=== PATIENT | male | born 1950 | race Caucasian/White ===

== ENCOUNTER 2018-10-01 16:26 | Inpatient (IN) | payer OTHER ==
--- NOTE | 2018-10-01 16:34 | PDOC ---
Rapid Medical Evaluation Time Seen by Provider: 10/01/18 16:31 Medical Evaluation: 10/01/18 16:31 I have performed a brief in-person evaluation of this patient. The patient presents with a chief complaint of: SOB x2 days Pertinent physical exam findings: Lungs CTAB. RRR. No m/r/g. I have ordered the following: cardiac w/u The patient will proceed to the ED for further evaluation. Discharge Disposition - Diagnosis SOB (shortness of breath) - Referrals - Patient Instructions - Post Discharge Activity
[2018-10-01 17:23] LABS: BASO % 0.2 % (0-2.0); HEMATOCRIT 45.9 % (35.4-49); HEMOGLOBIN 14.9 GM/dL (11.7-16.9); MCH 31.8 pg (25.7-33.7); MCHC 32.5 g/dl (32.0-35.9); MEAN PLT VOLUME 7.5 fl (7.5-11.1); MONO % 4.3 % (3.8-10.2); NEUT % 91.5 % (42.8-82.8); PLATELET COUNT 262 K/MM3 (134-434); RBC 4.68 M/mm3 (4.00-5.60); RDW 18.5 % (11.9-15.9); WHITE BLOOD COUNT 16.2 K/mm3 (4.0-10.0)
--- NOTE | 2018-10-01 17:27 | PDOC ---
History of Present Illness - General Chief Complaint: Shortness of Breath Stated Complaint: SOB Time Seen by Provider: 10/01/18 16:31 History Source: Patient Exam Limitations: No Limitations - History of Present Illness Initial Comments: HPI: 67 y/o male presenting to [facility] ER complaining of shortness of breath x two weeks. Made worse with exertion. Denies constant chest pain but occasionally some discomfort on the sides of the chest. Initially was concerned it was a side effect of Desvenlafaxine (Pristiq). Dose was temporarily increased to 50 mg two weeks ago then decreased to 25 mg. Pt was then diagnosed with pneumonia by Dr. Lima in clinic. Pt was started on Clarithromycin. No improvement in symptoms. Endorses cough that was productive of pink sputum on Sunday night. Denies h/o of TB or known exposure. No recent international travel. Pt check his SPO2 on home monitor and became concerned when it read 88%. Pt elected to seek emergent evaluation after the hypoxic reading. 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 Review of Systems: In addition to that documented in the HPI above, the additional ROS was obtained : Constitutional: Denies fevers or chills Head: Denies vision changes ENMT: Denies sore throat CV: Per HPI Resp: Per HPI GI: Denies vomiting or diarrhea : Denies painful urination MSK: Denies recent trauma Skin: Denies new rashes Neuro: Denies new numbness or tingling or weakness Endocrine: Denies polyuria Heme: Denies bleeding or bruising Past History - Past Medical History Allergies/Adverse Reactions: Allergies Allergy/AdvReac Type Severity Reaction Status Date / Time Sulfa (Sulfonamide Allergy Verified 10/01/18 16:32 Antibiotics) Home Medications: Ambulatory Orders Amlodipine Besylate 10 mg PO DAILY 10/01/18 Aspirin Coated [Ecotrin -] 81 mg PO DAILY 10/01/18 Clopidogrel Bisulfate [Plavix] 75 mg PO DAILY 10/01/18 Famotidine [Pepcid] 20 mg PO BID 10/01/18 Fenofibrate Nanocrystallized [Fenofibrate] 145 mg PO DAILY 10/01/18 Folic Acid 1 mg PO DAILY 10/01/18 Hydralazine HCl 50 mg PO TID 10/01/18 Hydrocodone/Acetaminophen [[place] 7.5-325 Tablet] 1 each PO PRN 10/01/18 Lisinopril [Prinivil -] 40 mg PO BID 10/01/18 Lorazepam [Ativan] 1 mg PO PRN 10/01/18 Metformin HCl [Glucophage] 2,000 mg PO HS 10/01/18 Methotrexate [Mexate -] 22.5 mg WEEKLY 10/01/18 Methylphenidate HCl [Ritalin LA] 20 mg PO PRN 10/01/18 Nebivolol HCl [Bystolic] 20 mg PO BID 10/01/18 [place]-3 Fatty Acids/Fish Oil [Fish Oil 1,000 mg Capsule] 1 each PO DAILY Simvastatin [Zocor -] 40 mg PO DAILY 10/01/18 Testosterone Cypionate [Depo-Testosterone] 200 mg IM MONTHLY 10/01/18 Tizanidine HCl 2 mg PO PRN 10/01/18 Ubidecarenone [Coq-10] 300 mg PO DAILY 10/01/18 Cardiac Disorders: Yes COPD: No Diabetes: Yes HTN: Yes Hypercholesterolemia: Yes Psychiatric Problems: Yes (ANXIETY ADHD) Other medical history: PSORIATIC, BACK PAIN - Surgical History Cardiac Surgery: Yes (STENTS X 8) - Suicide/Smoking/Psychosocial Hx Smoking History: Never smoked Hx Alcohol Use: No Drug/Substance Use Hx: No Review of Systems - Review of Systems Able to Perform ROS?: Yes *Physical Exam - Vital Signs Last Vital Signs Temp Pulse Resp BP Pulse Ox 97.3 F L 78 20 135/72 96 10/01/18 16:32 10/01/18 17:22 10/01/18 17:22 10/01/18 17:22 10/01/18 17:22 - Physical Exam Comments: Constitutional: Well-developed, well-nourished adult male in no acute distress or obvious discomfort. Found semi-fowlers on hospital bed. Alert and oriented x4. Answered all questions appropriately and completely. Speech was non-labored , non-pressured. Head: Normocephalic. No obvious external signs of trauma. Neck: Supple, trachea is midline. No JVD. Cardiovascular / Chest: Regular rate and regular rhythm. No murmur, rubs, clicks, or gallops. Peripheral pulses: radial pulses full. No anterior chest wall tenderness. No pretibial edema. Respiratory: Breathing unlabored. Occasional cough. Able to speak in multi-word responses without pausing for breath. Equal chest rise and fall. Clear to auscultation bilaterally. No stridor, no wheezing, no rhonchi. Gastrointestinal: abdomen is soft, non-tender, non-distended. Neuro: Alert and oriented. Moving all four extremities spontaneously. Skin: Warm, dry, and intact. Psych: Affect: appropriate. Mood: normal. ED Treatment Course - LABORATORY CBC & Chemistry Diagram: 10/01/18 17:10 10/01/18 17:10 Medical Decision Making - Medical Decision Making *Reviewed vital signs, nursing notes, and prior visit documentation (if available). 67 y/o male presenting with cough and SOB. Found to be hypoxia in triage; improved with low flow supplemental oxygen via nasal cannula. Afebrile. Vitals unremarkable for hypotension or tachycardia. CXR revealed consolidation to middle of left chest (per ED wet read). CBC revealed leukocytosis with left shift. Ordered ceftriaxone and azithromycin for antibiotic coverage. EKG revealed a sinus rhythm that was unremarkable for ischemic ectopy. Troponin not elevated. Will admit pt for pneumonia causing acute hypoxia. Telephone consultation with Dr. Danielle. Verbally appraised of the pts HPI, ED course, and current plan of management. Will admit pt to med/surg. Requested single dose of Solu-Medrol and physician consult for Dr. Woody. *DC/Admit/Observation/Transfer Diagnosis at time of Disposition: SOB (shortness of breath), Hypoxemia requiring supplemental oxygen Pneumonia involving left lung Qualifiers: Pneumonia type: due to unspecified organism Lung location: unspecified part of lung Qualified Code(s): J18.9 - Pneumonia, unspecified organism - Discharge Dispostion Condition at time of disposition: Stable Decision to Admit order: Yes - Referrals - Patient Instructions - Post Discharge Activity
[2018-10-01 17:50] LABS: INR 1.13 (0.83-1.09); PROTHROMBIN TIME (PATIENT) 13.4 SEC (9.7-13.0)
[2018-10-01 18:17] LABS: ALBUMIN 3.8 g/dl (3.4-5.0); ALK PHOS 51 U/L (45-117); ANION GAP 10 MMOL/L (8-16); BILIRUBIN,TOTAL 0.7 mg/dL (0.2-1); BLOOD UREA NITROGEN 27 mg/dL (7-18); CALCIUM 8.7 mg/dL (8.5-10.1); CHLORIDE 101 mmol/L (98-107); CO2 22 mmol/L (21-32); CREATININE 1.8 mg/dL (0.55-1.3); GLUCOSE,RANDOM 119 mg/dL (74-106); SGPT/ALT 39 U/L (13-61); SODIUM 133 mmol/L (136-145); TOT PROT 7.1 g/dl (6.4-8.2)
[2018-10-01 18:18] LABS: MAGNESIUM 2.1 mg/dL (1.8-2.4); POTASSIUM 4.9 mmol/L (3.5-5.1); SGOT/AST 32 U/L (15-37)
[2018-10-01] MEDS ORDERED: CEFTRIAXONE 1,000 MG in DEXTROSE 5%-WATER - 50 ML IVPB ONE (18:48)
[2018-10-01] MEDS ORDERED: AZITHROMYCIN IVPB 500 MG in DEXTROSE 5%-WATER - 250 ML IVPB ONE (18:49)
[2018-10-01] MEDS ORDERED: CEFTRIAXONE 1 GM/50 ML BAG ONE (19:06)
[2018-10-01] MEDS ORDERED: methylPREDNISolone NA SUCC 125 MG/2 ML VIAL IVPUSH ONE (19:13)
[2018-10-01] MEDS ORDERED: AZITHROMYCIN IVPB 500 MG/250 ML BAG IVPB ONE (20:05)
[2018-10-01] MEDS ORDERED: methylPREDNISolone NA SUCC 125 MG/2 ML VIAL ONE (20:05)
[2018-10-01] MEDS ORDERED: PATIENT'S OWN MEDICATION (NON-FORMULARY) (Hydrocodone/Acetaminophen [Norco 7.5-325 Tablet] PO SCH (20:45)
--- NOTE | 2018-10-01 21:28 | PDOC ---
Documentation entered by Jhonny Tejeda SCRIBE, acting as scribe for Judi Contreras MD. Judi Contreras MD: This documentation has been prepared by the Ileana johnson Renju, SCRIBE, under my direction and personally reviewed by me in its entirety. I confirm that the documentation accurately reflects all work, treatment, procedures, and medical decision making performed by me. Attending Attestation - Resident Resident Name: Bhupendra Poole - ED Attending Attestation I have performed the following: I have examined & evaluated the patient, The case was reviewed & discussed with the resident, I agree w/resident's findings & plan, Exceptions are as noted - HPI HPI: 10/01/18 18:28 Patient is a 67 year old male with a past medical history of CAD s/p 8 stents ( [id number]), HTN, HLD, T2DM, hypogonadism, psoriatic arthritis, and anxiety who presents to the emergency department for evaluation of a 2 week history of dyspnea which is exacerbated with exertion. Endorses mild chest discomfort and productive cough with pink sputum since Sunday night. Patient decided to visit the after seeing his spo2 reading of 88% via home monitor. Denies recent travel. Allergies: Sulfonamide Antibiotics - Physicial Exam PE: 10/01/18 18:31 obese 67 yo male has had increasing shortness of breath and was just started on biaxin by Dr Hyde for presumed PNA head ncat neck supple lung no wheezing, no rales cvs [id number] abd protuberant ,nontender ext no erythema skin warm and dry neuro axox3,moving all extremities psych appropriate 10/01/18 18:34 - Medical Decision Making 10/01/18 18:40 67 yo Fri[place] p/w increasing shortness of breath,seen by PCP and started on biaxin for presumed PNA pt was hypoxic 88 % PULSE OX on room air with good wave form plan cxr,cbc,comp,trop,ekg admission for left sided infiltrates/pt has leukocytosis and needs supplemental oxygen 10/01/18 18:50
[2018-10-01] MEDS ORDERED: LISINOPRIL 20 MG TABLET (FP) PO SCH (22:00)
[2018-10-01] MEDS ORDERED: LORazepam 0.5 MG TABLET ONE (22:47)
[2018-10-01] MEDS ORDERED: PANTOPRAZOLE 40 MG TABLET (FP) ONE (22:48)
[2018-10-01] MEDS: DOCUSATE SODIUM 100 MG CAPSULE (FP) PO SCH (22:52)
[2018-10-01] MEDS: PANTOPRAZOLE 40 MG TABLET (FP) PO SCH (22:52)
[2018-10-01] MEDS: PATIENT'S OWN MEDICATION (NON-FORMULARY) (Nebivolol Hcl [Bystolic] 20 MG) PO SCH (22:52)
[2018-10-01] MEDS: hydrALAZINE HCL 25 MG TABLET (FP) PO SCH (22:52)
[2018-10-01] MEDS: LORazepam 1 MG TABLET PO SCH (22:52)
--- NOTE | 2018-10-01 23:04 | HP ---
Admitting History and Physical - Admission History of Present Illness: 67 y/o male PMH of DM/ HTN / with 2 -3 week hx of respiratory symptoms presenting to [facility] ER complaining of shortness of breath x two weeks. Denies constant chest pain but occasionally some discomfort on the sides of the chest exacerbated by coughing. Initially was concerned it was a side effect of Desvenlafaxine (Pristiq). Dose was temporarily increased to 50 mg two weeks ago then decreased to 25 mg with some improvement of sx. Pt states coughing and of breath became worse over last week. He was seen at office yesterday --clinical exam c/w pneumonia. He was started on ABX / Steroids / inhaler and instructed to call or return to office if worse. Pt check his SPO2 on home monitor and became concerned when it read 88%. Pt elected to seek emergent evaluation after the hypoxic reading. History Source: Patient, Friend, Medical Record Limitations to Obtaining History: No Limitations - Past Medical History Cardiovascular: Yes: HTN Pulmonary: Yes: Pneumonia Endocrine: Yes: Diabetes Mellitus - Smoking History Smoking history: Never smoked - Alcohol/Substance Use Hx Alcohol Use: No History of Substance Use: reports: None - Social History Usual Living Arrangement: Yes: Other (Friar) Home Medications - Allergies Allergies/Adverse Reactions: Allergies Allergy/AdvReac Type Severity Reaction Status Date / Time Sulfa (Sulfonamide Allergy Verified 10/01/18 16:32 Antibiotics) - Home Medications Home Medications: Ambulatory Orders Amlodipine Besylate 10 mg PO DAILY 10/01/18 Aspirin Coated [Ecotrin -] 81 mg PO DAILY 10/01/18 Clopidogrel Bisulfate [Plavix] 75 mg PO DAILY 10/01/18 Famotidine [Pepcid] 20 mg PO BID 10/01/18 Fenofibrate Nanocrystallized [Fenofibrate] 145 mg PO DAILY 10/01/18 Folic Acid 1 mg PO DAILY 10/01/18 Hydralazine HCl 50 mg PO TID 10/01/18 Hydrocodone/Acetaminophen [[place] 7.5-325 Tablet] 1 each PO PRN 10/01/18 Lisinopril [Prinivil -] 40 mg PO BID 10/01/18 Lorazepam [Ativan] 1 mg PO PRN 10/01/18 Metformin HCl [Glucophage] 2,000 mg PO HS 10/01/18 Methotrexate [Mexate -] 22.5 mg WEEKLY 10/01/18 Methylphenidate HCl [Ritalin LA] 20 mg PO PRN 10/01/18 Nebivolol HCl [Bystolic] 20 mg PO BID 10/01/18 [place]-3 Fatty Acids/Fish Oil [Fish Oil 1,000 mg Capsule] 1 each PO DAILY Simvastatin [Zocor -] 40 mg PO DAILY 10/01/18 Testosterone Cypionate [Depo-Testosterone] 200 mg IM MONTHLY 10/01/18 Tizanidine HCl 2 mg PO PRN 10/01/18 Ubidecarenone [Coq-10] 300 mg PO DAILY 10/01/18 Review of Systems - Review of Systems Constitutional: reports: Chills, Fever, Malaise Eyes: reports: No Symptoms HENT: reports: No Symptoms Neck: reports: No Symptoms Cardiovascular: reports: Chest Pain, Shortness of Breath Respiratory: reports: Cough, Exercise Intolerance, SOB, SOB on Exertion, Wheezing (at night) Gastrointestinal: reports: No Symptoms Genitourinary: reports: No Symptoms Breasts: reports: No Symptoms Reported Musculoskeletal: reports: No Symptoms Integumentary: reports: No Symptoms Neurological: reports: No Symptoms Endocrine: reports: No Symptoms Hematology/Lymphatic: reports: No Symptoms Psychiatric: reports: Depression Physical Examination Vital Signs: Vital Signs Temperature 97.3 F L 10/01/18 16:32 Pulse Rate 68 10/01/18 20:00 Respiratory Rate 20 10/01/18 20:00 Blood Pressure 126/74 10/01/18 20:00 O2 Sat by Pulse Oximetry (%) 99 10/01/18 20:00 Constitutional: Yes: Well Nourished, Mild Distress Eyes: Yes: Conjunctiva Clear, EOM Intact HENT: Yes: Atraumatic, Normocephalic Neck: Yes: Supple, Trachea Midline Cardiovascular: Yes: Regular Rate and Rhythm Respiratory: Yes: Regular Gastrointestinal: Yes: WNL ...Rectal Exam: Yes: Deferred Renal/: Yes: WNL Breast(s): Yes: WNL Musculoskeletal: Yes: WNL Extremities: Yes: WNL Edema: No Peripheral Pulses WNL: Yes Integumentary: Yes: WNL Neurological: Yes: Alert, Oriented ...Motor Strength: WNL Psychiatric: Yes: Alert, Oriented Labs: CBC, BMP 10/01/18 17:10 05/07/19 17:10 Problem List - Problems (1) HTN (hypertension) Code(s): I10 - ESSENTIAL (PRIMARY) HYPERTENSION (2) Diabetes mellitus Code(s): E11.9 - TYPE 2 DIABETES MELLITUS WITHOUT COMPLICATIONS (3) Hypoxemia requiring supplemental oxygen Code(s): R09.02 - HYPOXEMIA; Z99.81 - DEPENDENCE ON SUPPLEMENTAL OXYGEN (4) Pneumonia involving left lung Code(s): J18.9 - PNEUMONIA, UNSPECIFIED ORGANISM Qualifiers: Pneumonia type: due to unspecified organism Lung location: unspecified part of lung Qualified Code(s): J18.9 - Pneumonia, unspecified organism (5) SOB (shortness of breath) Code(s): R06.02 - SHORTNESS OF BREATH
[2018-10-02 00:46] VITALS: BMI 33.0
[2018-10-02] MEDS: methylPREDNISolone NA SUCC 40 MG/1 ML VIAL IVPUSH SCH ×3 (02:00→17:18)
[2018-10-02] MEDS: hydrALAZINE HCL 25 MG TABLET (FP) PO SCH ×3 (06:14→21:17)
[2018-10-02] MEDS: INSULIN SLIDING SCALE (NOVOLOG) 1 VIAL SQ SCH ×4 (06:14→21:16)
[2018-10-02] MEDS ORDERED: INSULIN (NOVOLOG) ASPART 100 UNITS/ML 10ML VIAL ONE ×3 (06:29→21:06)
[2018-10-02 07:32] LABS: HEMATOCRIT 42.3 % (35.4-49); HEMOGLOBIN 14.2 GM/dL (11.7-16.9); MCH 32.5 pg (25.7-33.7); MCHC 33.6 g/dl (32.0-35.9); MEAN PLT VOLUME 7.6 fl (7.5-11.1); PLATELET COUNT 229 K/MM3 (134-434); RBC 4.36 M/mm3 (4.00-5.60); RDW 18.5 % (11.9-15.9); WHITE BLOOD COUNT 10.5 K/mm3 (4.0-10.0)
[2018-10-02] MEDS: ALBUTEROL SO4 2.5/IPRATROPIUM 0.5 INH SOL 3 ML VIAL.NEB. NEB SCH ×4 (07:33→20:40)
[2018-10-02 08:06] LABS: CALCIUM 8.6 mg/dL (8.5-10.1); MAGNESIUM 2.3 mg/dL (1.8-2.4); POTASSIUM 4.9 mmol/L (3.5-5.1)
--- NOTE | 2018-10-02 08:29 | EKG ---
Test Reason : Blood Pressure : / mmHG Vent. Rate : 074 BPM Atrial Rate : 074 BPM P-R Int : 170 ms QRS Dur : 082 ms QT Int : 410 ms P-R-T Axes : 034 024 026 degrees QTc Int : 455 ms POOR DATA QUALITY, INTERPRETATION MAY BE ADVERSELY AFFECTED NORMAL SINUS RHYTHM NORMAL ECG NO PREVIOUS ECGS AVAILABLE Confirmed by BART TURNER MD ([id number]) on 10/02/2018 8:29:07 AM Referred By: Confirmed By:BART TURNER MD
--- NOTE | 2018-10-02 08:37 | CON.CARD ---
Consult Consult Specialty:: Cardiology Reason for Consultation:: cp - History of Present Illness History of Present Illness: 7 y/o male presenting to [facility] ER complaining of shortness of breath x two weeks. Made worse with exertion. Denies constant chest pain but occasionally some discomfort on the sides of the chest. Initially was concerned it was a side effect of Desvenlafaxine (Pristiq). Dose was temporarily increased to 50 mg two weeks ago then decreased to 25 mg. Pt was then diagnosed with pneumonia by Dr. Lima in clinic. Pt was started on Clarithromycin. No improvement in symptoms. Endorses cough that was productive of pink sputum on Sunday night. Denies h/o of TB or known exposure. No recent international travel. Pt check his SPO2 on home monitor and became concerned when it read 88%. Pt elected to seek emergent evaluation after the hypoxic reading. 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 cardiac [facility] PCI of RPDA LOUIE Cardiac Cath. 04/04/18 [facility] Patient refused CABG. PCI LOUIE PRCA Left Main 30% LAD proximal stent patent, mid 40%, distal 50% tapers to small caliber vessel D1 80% medium size vessel D2 80% medium size vessel LCx mid stent widely patent Ramus stent widely patent with 90% stenosis proximal to patent stent- ostial lesion OM1 stent widely patent Cardiac Cath: 06/27/18 at [facility] by Dr. Deluna PCI LOUIE Ramus Ongoing medical problems 3 vessel disease - refused CABG September 09, 2015 Dr. Deluna Anxiety LOUIE of pLAD November 18, 2015 Dr. Deluna Hyperlipidemia Hypertension PCI LOUIE of mRCA September 10, 2015 Dr. Deluna PCI of Ramus and OM1 September 17, 2015 Dr. Deluna Pre-diabetes treated with metformin in the past Sleep apnea Basal cell CA nose.2015 - resection 2017 - History Source History Provided By: Patient, Medical Record - Past Medical History Cardio/Vascular: Yes: HTN Pulmonary: Yes: Pneumonia Endocrine: Yes: Diabetes Mellitus - Alcohol/Substance Use Hx Alcohol Use: No History of Substance Use: reports: None - Smoking History Smoking history: Never smoked Home Medications - Allergies Allergies/Adverse Reactions: Allergies Allergy/AdvReac Type Severity Reaction Status Date / Time Sulfa (Sulfonamide Allergy Verified 10/01/18 16:32 Antibiotics) - Home Medications Home Medications: Ambulatory Orders Amlodipine Besylate 10 mg PO DAILY 10/01/18 Aspirin Coated [Ecotrin -] 81 mg PO DAILY 10/01/18 Clopidogrel Bisulfate [Plavix] 75 mg PO DAILY 10/01/18 Famotidine [Pepcid] 20 mg PO BID 10/01/18 Fenofibrate Nanocrystallized [Fenofibrate] 145 mg PO DAILY 10/01/18 Folic Acid 1 mg PO DAILY 10/01/18 Hydralazine HCl 50 mg PO TID 10/01/18 Hydrocodone/Acetaminophen [[place] 7.5-325 Tablet] 1 each PO PRN 10/01/18 Lisinopril [Prinivil -] 40 mg PO BID 10/01/18 Lorazepam [Ativan] 1 mg PO PRN 10/01/18 Metformin HCl [Glucophage] 2,000 mg PO HS 10/01/18 Methotrexate [Mexate -] 22.5 mg WEEKLY 10/01/18 Methylphenidate HCl [Ritalin LA] 20 mg PO PRN 10/01/18 Nebivolol HCl [Bystolic] 20 mg PO BID 10/01/18 [place]-3 Fatty Acids/Fish Oil [Fish Oil 1,000 mg Capsule] 1 each PO DAILY Simvastatin [Zocor -] 40 mg PO DAILY 10/01/18 Testosterone Cypionate [Depo-Testosterone] 200 mg IM MONTHLY 10/01/18 Tizanidine HCl 2 mg PO PRN 10/01/18 Ubidecarenone [Coq-10] 300 mg PO DAILY 10/01/18 Review of Systems - Review of Systems Constitutional: reports: No Symptoms Eyes: reports: No Symptoms HENT: reports: No Symptoms Neck: reports: No Symptoms Cardiovascular: reports: Chest Pain Respiratory: reports: Cough, SOB Gastrointestinal: reports: No Symptoms Genitourinary: reports: No Symptoms Breasts: reports: No Symptoms Reported Musculoskeletal: reports: No Symptoms Integumentary: reports: No Symptoms Neurological: reports: No Symptoms Endocrine: reports: No Symptoms Hematology/Lymphatic: reports: No Symptoms Psychiatric: reports: No Symptoms Vital Signs: Vital Signs Temperature 98.0 F 10/02/18 05:00 Pulse Rate 70 10/02/18 05:00 Respiratory Rate 20 10/02/18 00:37 Blood Pressure 113/67 10/02/18 05:00 O2 Sat by Pulse Oximetry (%) 95 10/02/18 00:37 Constitutional: Yes: Well Nourished, No Distress, Calm Eyes: Yes: WNL, Conjunctiva Clear, EOM Intact HENT: Yes: WNL, Atraumatic, Normocephalic Neck: Yes: WNL, Supple, Trachea Midline Respiratory: Yes: WNL, Regular, CTA Bilaterally Gastrointestinal: Yes: WNL, Normal Bowel Sounds Renal/: Yes: WNL Cardiovascular: Yes: WNL, Regular Rate and Rhythm Musculoskeletal: Yes: WNL Extremities: Yes: WNL Integumentary: Yes: WNL Neurological: Yes: WNL, Alert, Oriented ...Motor Strength: WNL Psychiatric: Yes: WNL, Alert, Oriented - Other Data Labs, Other Data: CBC, BMP 10/02/18 06:30 10/02/18 06:30 INR, PTT INR 1.13 (0.83-1.09) H 10/01/18 17:10 Troponin, BNP 10/01/18 17:10 Troponin I 0.02 Troponin, BNP 10/01/18 17:10 Troponin I 0.02 Laboratory Tests 10/01/18 10/01/18 10/01/18 17:10 17:10 17:10 WBC 16.2 H RBC 4.68 Hgb 14.9 Hct 45.9 MCV 98.0 H MCH 31.8 MCHC 32.5 RDW 18.5 H Plt Count 262 MPV 7.5 Absolute Neuts (auto) 14.8 H Total Counted 100 Neutrophils % 91.5 H Neutrophils % (Manual) 93.0 H Lymphocytes % 4.0 L Lymphocytes % (Manual) 4.0 L Monocytes % 4.3 Monocytes % (Manual) 3 L Eosinophils % 0.0 Basophils % 0.2 Nucleated RBC % 0 PT with INR 13.40 H INR 1.13 H Sodium 133 L Potassium 4.9 Chloride 101 Carbon Dioxide 22 Anion Gap 10 BUN 27 H Creatinine 1.8 H Creat Clearance w eGFR 37.71 Est GFR (CKD-EPI)AfAm Est GFR (CKD-EPI)NonAf POC Glucometer Random Glucose 119 H Calcium 8.7 Magnesium 2.1 Total Bilirubin 0.7 AST 32 ALT 39 Alkaline Phosphatase 51 Creatine Kinase 212 Creatine Kinase Index 1.8 CK-MB (CK-2) 4.0 H Troponin I 0.02 Total Protein 7.1 Albumin 3.8 TSH 10/02/18 10/02/18 10/02/18 06:13 06:30 06:30 WBC 10.5 H RBC 4.36 Hgb 14.2 Hct 42.3 MCV 97.0 H MCH 32.5 MCHC 33.6 RDW 18.5 H Plt Count 229 MPV 7.6 Absolute Neuts (auto) Total Counted Neutrophils % Neutrophils % (Manual) Lymphocytes % Lymphocytes % (Manual) Monocytes % Monocytes % (Manual) Eosinophils % Basophils % Nucleated RBC % PT with INR INR Sodium 131 L Potassium 4.9 Chloride 101 Carbon Dioxide 22 Anion Gap 8 BUN 31 H Creatinine 1.5 H Creat Clearance w eGFR Est GFR (CKD-EPI)AfAm 54.66 Est GFR (CKD-EPI)NonAf 47.16 POC Glucometer 211 Random Glucose 187 H Calcium 8.6 Magnesium 2.3 Total Bilirubin AST ALT Alkaline Phosphatase Creatine Kinase Creatine Kinase Index CK-MB (CK-2) Troponin I Total Protein Albumin TSH 0.58 10/02/18 11:33 WBC RBC Hgb Hct MCV MCH MCHC RDW Plt Count MPV Absolute Neuts (auto) Total Counted Neutrophils % Neutrophils % (Manual) Lymphocytes % Lymphocytes % (Manual) Monocytes % Monocytes % (Manual) Eosinophils % Basophils % Nucleated RBC % PT with INR INR Sodium Potassium Chloride Carbon Dioxide Anion Gap BUN Creatinine Creat Clearance w eGFR Est GFR (CKD-EPI)AfAm Est GFR (CKD-EPI)NonAf POC Glucometer 194 Random Glucose Calcium Magnesium Total Bilirubin AST ALT Alkaline Phosphatase Creatine Kinase Creatine Kinase Index CK-MB (CK-2) Troponin I Total Protein Albumin TSH Imaging - Results Chest X-ray: Image Reviewed (rml infiltrate) EKG: Image Reviewed (sr wnl) Problem List - Problems (1) Diabetes mellitus Code(s): E11.9 - TYPE 2 DIABETES MELLITUS WITHOUT COMPLICATIONS (2) HTN (hypertension) Code(s): I10 - ESSENTIAL (PRIMARY) HYPERTENSION (3) Hypoxemia requiring supplemental oxygen Code(s): R09.02 - HYPOXEMIA; Z99.81 - DEPENDENCE ON SUPPLEMENTAL OXYGEN (4) Pneumonia involving left lung Code(s): J18.9 - PNEUMONIA, UNSPECIFIED ORGANISM Qualifiers: Pneumonia type: due to unspecified organism Lung location: unspecified part of lung Qualified Code(s): J18.9 - Pneumonia, unspecified organism (5) SOB (shortness of breath) Code(s): R06.02 - SHORTNESS OF BREATH Assessment/Plan Imp; PNA ASHD CRI DM HTN HLP Atypical cp Plan Non cardiac cp ekg, echo, ce neg cont abx and dvt plx
[2018-10-02] MEDS ORDERED: DEXTROSE 5%-WATER - 50 ML IVPB ONE (09:49)
[2018-10-02] MEDS ORDERED: cefTRIAXone SODIUM 1 GM VIAL ONE (09:49)
[2018-10-02] MEDS: FOLIC ACID 1 MG TABLET (FP) PO SCH (09:53)
[2018-10-02] MEDS: PANTOPRAZOLE 40 MG TABLET (FP) PO SCH ×2 (09:53→21:17)
[2018-10-02] MEDS: DOCUSATE SODIUM 100 MG CAPSULE (FP) PO SCH ×2 (09:53→21:17)
[2018-10-02] MEDS: amLODIPine BESYLATE 10 MG TABLET (FP) PO SCH (09:53)
[2018-10-02] MEDS: LORazepam 1 MG TABLET PO SCH ×3 (09:53→21:27)
[2018-10-02] MEDS: CLOPIDOGREL BISULFATE 75 MG TABLET (FP) PO SCH (09:54)
[2018-10-02] MEDS: ASPIRIN COATED 81 MG TABLET.EC PO SCH (09:54)
[2018-10-02] MEDS: AZITHROMYCIN IVPB 500 MG/250 ML BAG IVPB SCH (09:54)
[2018-10-02] MEDS: POLYETHYLENE GLYCOL 3350 119 GM BTL PO SCH (09:55)
[2018-10-02] MEDS ORDERED: CEFTRIAXONE 1 GM in DEXTROSE 5%-WATER - 50 ML IVPB SCH (10:00)
[2018-10-02 10:12] LABS: CREATININE 1.5 mg/dL (0.55-1.3)
[2018-10-02] MEDS: LISINOPRIL 20 MG TABLET (FP) PO SCH ×3 (12:00→21:17)
--- NOTE | 2018-10-02 12:06 | ECHO ---
Name: KAYDEN MONTANEZ Exam:Adult Echocardiogram Study Date: 10/02/2018 10:04 AM Age: 67 yrs Reason For Study: SOB Height: 72 in Weight: 243 lb BSA: 2.3 m2 MMode/2D Measurements & Calculations IVSd: 1.2 cm Ao root diam: 3.2 cm LVIDd: 4.4 cm LA dimension: 3.0 cm LVIDs: 2.7 cm LVPWd: 1.1 cm EDV(Teich): 87.9 ml LVOT diam: 2.1 cm ESV(Teich): 28.1 ml Doppler Measurements & Calculations MV E max alex: 70.6 cm/sec Ao V2 max: 168.3 cm/sec MV A max alex: 99.2 cm/sec Ao max P.3 mmHg MV E/A: 0.71 Ao V2 mean: 120.2 cm/sec MV dec time: 0.26 sec Ao mean P.6 mmHg Ao V2 VTI: 34.7 cm RADHA(I,D): 3.0 cm2 RADHA(V,D): 3.1 cm2 LV V1 max P.8 mmHg SV(LVOT): 102.5 ml LV V1 mean P.8 mmHg LV V1 max: 148.7 cm/sec LV V1 mean: 117.9 cm/sec LV V1 VTI: 29.1 cm Med Peak E' Alex: 4.4 cm/sec Med E/e': 16.1 Lat Peak E' Alex: 5.3 cm/sec Lat E/e': 13.4 Procedure A two-dimensional transthoracic echocardiogram with color flow and Doppler was performed. Left Ventricle The left ventricular size, thickness and function are normal. The left ventricular ejection fraction is normal. The left ventricular wall motion is normal. Right Ventricle The right ventricle is normal in size and function. Atria Normal left and right atrial size and function. Mitral Valve The mitral valve is normal in structure and function. There is no mitral valve stenosis. There is tra ce to mild mitral regurgitation. Tricuspid Valve The tricuspid valve is normal in structure and function. There is no tricuspid stenosis. There was insufficient TR detected to calculate RV systolic pressure. Aortic Valve The aortic valve is normal in structure and function. No hemodynamically significant valvular aortic stenosis. No aortic regurgitation is present. Pulmonic Valve The pulmonic valve is not well visualized. Great Vessels The aortic root is normal size. Pericardium/Pleura There is no pericardial effusion. Interpretation Summary The left ventricular size, thickness and function are normal The left ventricular ejection fraction is normal. The left ventricular wall motion is normal. There is trace to mild mitral regurgitation. There was insufficient TR detected to calculate RV systolic pressure. MD Arvin Schwab 10/02/2018 12:05 PM
[2018-10-02] MEDS: NEBIVOLOL 10 MG TABLET (FP) PO SCH ×2 (12:53→21:17)
[2018-10-02] MEDS ORDERED: ACETAMINOPHEN 325 MG TABLET (FP) PO PRN (13:12)
[2018-10-02] MEDS: LORazepam 1 MG TABLET PO PRN (21:27)
--- NOTE | 2018-10-02 22:20 | PN ---
Progress Note (short form) - Note Progress Note: patient seen and examined in room states feeling better continues with cough now less productive Vital Signs Period Temp Pulse Resp BP Sys/Crespo Pulse Ox Last 24 Hr 97.5 F-98.0 F 70-78 18-20 113-126/56-69 95-[address] neck supple heart s1/S2 regular lungs rhonchi mid left filed no wheezing abd soft non tender ext no calf tenderness / no edema CBC, BMP 10/02/18 06:30 10/02/18 06:30 Active Medications Acetaminophen (Tylenol -) 650 mg PO Q6H PRN PRN Reason: PAIN Albuterol/Ipratropium (Duoneb -) 1 amp NEB RQID [facility] Last Admin: 10/02/18 20:40 Dose: 1 amp Amlodipine Besylate (Norvasc -) 10 mg PO DAILY [facility] Last Admin: 10/02/18 09:53 Dose: 10 mg Aspirin (Ecotrin -) 81 mg PO DAILY [facility] Last Admin: 10/02/18 09:54 Dose: 81 mg Clopidogrel Bisulfate (Plavix -) 75 mg PO DAILY [facility] Last Admin: 10/02/18 09:54 Dose: 75 mg Docusate Sodium (Colace -) 100 mg PO BID [facility] Last Admin: 10/02/18 21:17 Dose: 100 mg Folic Acid (Folic Acid -) 1 mg PO DAILY [facility] Last Admin: 10/02/18 09:53 Dose: 1 mg Hydralazine HCl (Apresoline -) 50 mg PO TID [facility] Last Admin: 10/02/18 21:17 Dose: 50 mg Azithromycin (Zithromax 500mg Ivpb (Pre-Docked)) 500 mg in 250 mls @ 250 mls/ hr IVPB DAILY [facility] Last Admin: 10/02/18 09:54 Dose: 250 mls/hr Ceftriaxone Sodium 1 gm/ (Dextrose) 50 mls @ 100 mls/hr IVPB DAILY [facility]; Protocol Stop: 10/07/18 23:59 Last Admin: 10/02/18 09:55 Dose: 100 mls/hr Insulin Aspart (Novolog Vial Sliding Scale -) 1 vial SQ ACHS [facility]; Protocol Last Admin: 10/02/18 21:16 Dose: 4 units Lisinopril (Prinivil) 40 mg PO BID [facility] Last Admin: 10/02/18 21:17 Dose: 40 mg Lorazepam (Ativan -) 2 mg PO HS PRN PRN Reason: ANXIETY Last Admin: 10/02/18 21:27 Dose: 2 mg Lorazepam (Ativan -) 1 mg PO BID [facility] Stop: 10/03/18 20:50 Last Admin: 10/02/18 21:27 Dose: Not Given Methotrexate (Mexate -) 22.5 mg PO Tu@1000 [facility] Methylprednisolone Sodium Succinate (Solu-Medrol -) 60 mg IVPUSH Q8H-IV [facility] Last Admin: 10/02/18 17:18 Dose: 60 mg Nebivolol (Bystolic -) 20 mg PO BID [facility] Last Admin: 10/02/18 21:17 Dose: 20 mg Non-Formulary Medication ([place]-3 Fatty Acids/Fish Oil [Fish Oil 1,000 Mg Capsule]) 1 each PO DAILY [facility] Non-Formulary Medication (Ubidecarenone [Coq-10]) 300 mg PO DAILY [facility] Pantoprazole Sodium (Protonix -) 40 mg PO BID [facility] Last Admin: 10/02/18 21:17 Dose: 40 mg Polyethylene Glycol (Miralax (For Daily Use) -) 17 gm PO DAILY [facility] Last Admin: 10/02/18 09:55 Dose: 17 gm #PNA CAP / ABX/ nebulizer / steroids / O2 expectorant #HTN continue home meds / #DM monitor for inc BS due to steroids cover with sliding scale #Psoriatic arthitis on MTX weekly pain meds PRN #ADHD hold meds #CAD s/p multiple cath - c/stent Problem List - Problems (1) Pneumonia involving left lung Code(s): J18.9 - PNEUMONIA, UNSPECIFIED ORGANISM Qualifiers: Pneumonia type: due to unspecified organism Lung location: unspecified part of lung Qualified Code(s): J18.9 - Pneumonia, unspecified organism (2) Hypoxemia requiring supplemental oxygen Code(s): R09.02 - HYPOXEMIA; Z99.81 - DEPENDENCE ON SUPPLEMENTAL OXYGEN (3) SOB (shortness of breath) Code(s): R06.02 - SHORTNESS OF BREATH (4) HTN (hypertension) Code(s): I10 - ESSENTIAL (PRIMARY) HYPERTENSION (5) Psoriatic arthritis Code(s): L40.50 - ARTHROPATHIC PSORIASIS, UNSPECIFIED (6) CAD S/P percutaneous coronary angioplasty Code(s): I25.10 - ATHSCL HEART DISEASE OF [place] CORONARY ARTERY W/O ANG PCTRS; Z98.61 - CORONARY ANGIOPLASTY STATUS (7) ADHD (attention deficit hyperactivity disorder), combined type Code(s): F90.2 - ATTENTION-DEFICIT HYPERACTIVITY DISORDER, COMBINED TYPE (8) Diabetes mellitus Code(s): E11.9 - TYPE 2 DIABETES MELLITUS WITHOUT COMPLICATIONS
--- NOTE | 2018-10-02 22:36 | PN ---
Progress Note (short form) - Note Progress Note: ID CONSULT DICTATED COMMUNITY ACQUIRED VS. ATYPICAL L PNEUMONIA R/O SEPSIS SECONDARY TO PNEUMONIA AWAIT C/S CONTINUE EMPIRIC CEFTRIAXONE/ZITHROMAX
[2018-10-03] MEDS: methylPREDNISolone NA SUCC 40 MG/1 ML VIAL IVPUSH SCH ×3 (01:38→18:27)
[2018-10-03] MEDS: hydrALAZINE HCL 25 MG TABLET (FP) PO SCH ×3 (06:19→21:01)
[2018-10-03] MEDS: INSULIN SLIDING SCALE (NOVOLOG) 1 VIAL SQ SCH ×4 (06:19→21:19)
[2018-10-03] MEDS ORDERED: INSULIN (NOVOLOG) ASPART 100 UNITS/ML 10ML VIAL ONE ×4 (06:27→21:16)
[2018-10-03] MEDS: ALBUTEROL SO4 2.5/IPRATROPIUM 0.5 INH SOL 3 ML VIAL.NEB. NEB SCH ×4 (07:15→19:53)
[2018-10-03 07:41] LABS: BASO % 0.2 % (0-2.0); HEMATOCRIT 41.2 % (35.4-49); HEMOGLOBIN 13.5 GM/dL (11.7-16.9); LYMPH % 2.7 % (8-40); MCH 31.8 pg (25.7-33.7); MCHC 32.7 g/dl (32.0-35.9); MEAN CELL VOLUME 97.5 fl (80-96); MEAN PLT VOLUME 7.5 fl (7.5-11.1); MONO % 3.3 % (3.8-10.2); NEUT % 93.8 % (42.8-82.8); PLATELET COUNT 265 K/MM3 (134-434); RBC 4.23 M/mm3 (4.00-5.60); RDW 18.4 % (11.9-15.9); WHITE BLOOD COUNT 15.4 K/mm3 (4.0-10.0)
[2018-10-03 07:51] LABS: CALCIUM 8.6 mg/dL (8.5-10.1); CREATININE 1.5 mg/dL (0.55-1.3); POTASSIUM 4.8 mmol/L (3.5-5.1)
--- NOTE | 2018-10-03 08:57 | CONS ---
DATE OF CONSULTATION: DATE OF DICTATION: 10/03/2018 INFECTIOUS DISEASE CONSULTATION HISTORY OF PRESENT ILLNESS: The patient is a 67-year-old male with a history of coronary artery disease, evaluated for pneumonia. He was admitted to the hospital with a 2-week history of worsening shortness of breath. He had presented to his primary care physician, where he was evaluated and was prescribed Biaxin and steroids. Despite the treatment, he continued to complain of shortness of breath and cough. He took his O2 saturation on his home pulse oximeter and was noted to be hypoxemic. He presented to the emergency room, where chest x-ray showed a left-sided infiltrate. The patient reports shortness of breath, especially on exertion and at rest. He reports cough productive of blood-tinged sputum. He does have some chest discomfort with his cough. He denies any high-grade fever or shaking chills. The patient reports being exposed to persons with respiratory tract illnesses. He is a nonsmoker. He denies any recent hospitalizations. He is up to date with respect to his influenza and pneumococcal vaccines. PAST MEDICAL HISTORY: Positive for coronary artery disease and coronary artery stents (he has 8 coronary artery stents), hypertension, hyperlipidemia, diabetes mellitus, psoriatic arthritis. ALLERGIES: SULFA. MEDICATIONS: Include Tylenol, DuoNeb, Norvasc, Ecotrin, ceftriaxone, Zithromax, Plavix, Apresoline, Bystolic, Protonix. SOCIAL HISTORY: He is a retired entry level administrative assistant. He is a nonsmoker, nondrinker. No recent hospitalizations. REVIEW OF SYSTEMS: Neurologic: No loss of consciousness, seizure activity, focal weakness. Cardiac: Negative for chest pain or palpitations. Respiratory: As per HPI. Gastrointestinal: Negative for vomiting or diarrhea. Genitourinary: Negative for urinary tract infection. LABORATORY DATA: White count on admission 16.2, presently 10.5; hemoglobin 42.3, platelet count 223. Creatinine 1.5. IMAGING: Chest x-ray shows a patchy infiltrate involving the left mid lung field. PHYSICAL EXAMINATION: General: He is awake and alert. He is not acutely toxic appearing. He appears slightly shortness of breath at rest on nasal cannula O2. Vital Signs: Temperature 98.2, blood pressure 119/68, pulse 70 and regular, respirations 18 per minute. HEENT: Sclerae anicteric. Cardiac: Heart sounds S1, S2. Lungs: A few rhonchi in the left lung field. Abdomen: Obese, nontender. Extremities: Negative for edema. IMPRESSION: 1. Community-acquired versus atypical left-sided pneumonia. 2. Rule out sepsis secondary to pneumonia. 3. History of diabetes mellitus. 4. Coronary artery disease, status post coronary artery stents. 5. SULFA ALLERGY. PLAN: We obtained blood cultures, sputum culture, urine Legionella and pneumococcal antigens. Empiric antibiotic coverage with ceftriaxone and Zithromax, and will follow. Thank you for the kind referral. PATRICIA GARCIA M.D. [id number]
--- NOTE | 2018-10-03 09:01 | PN ---
Progress Note (short form) - Note Progress Note: patient seen and examined in room states feeling better continues with cough now less productive Vital Signs Period Temp Pulse Resp BP Sys/Crespo Pulse Ox Last 24 Hr 97.5 F-98.2 F 67-78 2-20 101-122/56-[address] neck supple heart s1/S2 regular lungs rhonchi mid left filed no wheezing abd soft non tender ext no calf tenderness / no edema CBC, BMP 10/03/18 06:10 10/03/18 06:10 CBC, BMP 10/02/18 06:30 10/02/18 06:30 Active Medications Acetaminophen (Tylenol -) 650 mg PO Q6H PRN PRN Reason: PAIN Albuterol/Ipratropium (Duoneb -) 1 amp NEB RQID [facility] Last Admin: 10/03/18 07:15 Dose: 1 amp Amlodipine Besylate (Norvasc -) 10 mg PO DAILY [facility] Last Admin: 10/02/18 09:53 Dose: 10 mg Aspirin (Ecotrin -) 81 mg PO DAILY [facility] Last Admin: 10/02/18 09:54 Dose: 81 mg Clopidogrel Bisulfate (Plavix -) 75 mg PO DAILY [facility] Last Admin: 10/02/18 09:54 Dose: 75 mg Docusate Sodium (Colace -) 100 mg PO BID [facility] Last Admin: 10/02/18 21:17 Dose: 100 mg Folic Acid (Folic Acid -) 1 mg PO DAILY [facility] Last Admin: 10/02/18 09:53 Dose: 1 mg Hydralazine HCl (Apresoline -) 50 mg PO TID [facility] Last Admin: 10/03/18 06:19 Dose: 50 mg Azithromycin (Zithromax 500mg Ivpb (Pre-Docked)) 500 mg in 250 mls @ 250 mls/ hr IVPB DAILY [facility] Last Admin: 10/02/18 09:54 Dose: 250 mls/hr Ceftriaxone Sodium 2 gm/ (Dextrose) 100 mls @ 200 mls/hr IVPB DAILY [facility]; Protocol Insulin Aspart (Novolog Vial Sliding Scale -) 1 vial SQ ACHS [facility]; Protocol Last Admin: 10/03/18 06:19 Dose: Not Given Lisinopril (Prinivil) 40 mg PO BID [facility] Last Admin: 10/02/18 21:17 Dose: 40 mg Lorazepam (Ativan -) 2 mg PO HS PRN PRN Reason: ANXIETY Last Admin: 10/02/18 21:27 Dose: 2 mg Lorazepam (Ativan -) 1 mg PO BID [facility] Stop: 10/03/18 20:50 Last Admin: 10/02/18 21:27 Dose: Not Given Methotrexate (Mexate -) 22.5 mg PO Tu@1000 [facility] Methylprednisolone Sodium Succinate (Solu-Medrol -) 60 mg IVPUSH Q8H-IV [facility] Last Admin: 10/03/18 01:38 Dose: 60 mg Nebivolol (Bystolic -) 20 mg PO BID [facility] Last Admin: 10/02/18 21:17 Dose: 20 mg Non-Formulary Medication ([place]-3 Fatty Acids/Fish Oil [Fish Oil 1,000 Mg Capsule]) 1 each PO DAILY [facility] Non-Formulary Medication (Ubidecarenone [Coq-10]) 300 mg PO DAILY [facility] Pantoprazole Sodium (Protonix -) 40 mg PO BID [facility] Last Admin: 10/02/18 21:17 Dose: 40 mg Polyethylene Glycol (Miralax (For Daily Use) -) 17 gm PO DAILY [facility] Last Admin: 10/02/18 09:55 Dose: 17 gm #PNA CAP / ABX/ nebulizer / steroids / O2 expectorant #HTN continue home meds / #DM monitor for inc BS due to steroids cover with sliding scale #Psoriatic arthitis on MTX weekly pain meds PRN #ADHD hold meds #CAD s/p multiple cath - c/stent Problem List - Problems (1) Pneumonia involving left lung Code(s): J18.9 - PNEUMONIA, UNSPECIFIED ORGANISM Qualifiers: Pneumonia type: due to unspecified organism Lung location: unspecified part of lung Qualified Code(s): J18.9 - Pneumonia, unspecified organism (2) Hypoxemia requiring supplemental oxygen Code(s): R09.02 - HYPOXEMIA; Z99.81 - DEPENDENCE ON SUPPLEMENTAL OXYGEN (3) SOB (shortness of breath) Code(s): R06.02 - SHORTNESS OF BREATH (4) HTN (hypertension) Code(s): I10 - ESSENTIAL (PRIMARY) HYPERTENSION (5) Psoriatic arthritis Code(s): L40.50 - ARTHROPATHIC PSORIASIS, UNSPECIFIED (6) CAD S/P percutaneous coronary angioplasty Code(s): I25.10 - ATHSCL HEART DISEASE OF [place] CORONARY ARTERY W/O ANG PCTRS; Z98.61 - CORONARY ANGIOPLASTY STATUS (7) ADHD (attention deficit hyperactivity disorder), combined type Code(s): F90.2 - ATTENTION-DEFICIT HYPERACTIVITY DISORDER, COMBINED TYPE (8) Diabetes mellitus Code(s): E11.9 - TYPE 2 DIABETES MELLITUS WITHOUT COMPLICATIONS
[2018-10-03] MEDS ORDERED: DEXTROSE 5%-WATER 100 ML IVPB ONE (09:51)
[2018-10-03] MEDS: LORazepam 1 MG TABLET PO SCH (10:07)
[2018-10-03] MEDS: FOLIC ACID 1 MG TABLET (FP) PO SCH (10:07)
[2018-10-03] MEDS: PANTOPRAZOLE 40 MG TABLET (FP) PO SCH ×2 (10:07→21:02)
[2018-10-03] MEDS: ASPIRIN COATED 81 MG TABLET.EC PO SCH (10:07)
[2018-10-03] MEDS: DOCUSATE SODIUM 100 MG CAPSULE (FP) PO SCH ×2 (10:08→21:01)
[2018-10-03] MEDS: NEBIVOLOL 10 MG TABLET (FP) PO SCH ×2 (10:08→21:19)
[2018-10-03] MEDS: LISINOPRIL 20 MG TABLET (FP) PO SCH ×2 (10:08→21:02)
[2018-10-03] MEDS: CLOPIDOGREL BISULFATE 75 MG TABLET (FP) PO SCH (10:08)
[2018-10-03] MEDS: amLODIPine BESYLATE 10 MG TABLET (FP) PO SCH (10:08)
[2018-10-03] MEDS: CEFTRIAXONE 2 GM in DEXTROSE 5%-WATER 100 ML IVPB SCH (10:09)
[2018-10-03] MEDS: AZITHROMYCIN IVPB 500 MG/250 ML BAG IVPB SCH (10:09)
[2018-10-03] MEDS: POLYETHYLENE GLYCOL 3350 119 GM BTL PO SCH (10:09)
[2018-10-03 11:23] LABS: ANISOCYTOSIS 1+; MACROCYTOSIS 1+; PLATELET ESTIMATE NORMAL
[2018-10-03] MEDS: NYSTATIN 500,000 UNITS/5 ML SUSPENSION PO SCH ×2 (12:45→18:27)
--- NOTE | 2018-10-03 16:23 | PN ---
Progress Note, Physician Chief Complaint: Pt A&Ox3; ambulating well without supplemental O2. History of Present Illness: Patient is a 67 year old male with a past medical history of CAD s/p 8 stents ( [id number]), HTN, HLD, T2DM, hypogonadism, psoriatic arthritis, and anxiety who presents to the emergency department for evaluation of a 2 week history of dyspnea which is exacerbated with exertion. Endorses mild chest discomfort and productive cough with pink sputum since Sunday night. Patient decided to visit the after seeing his spo2 reading of 88% via home monitor. - Current Medication List Current Medications: Active Medications Acetaminophen (Tylenol -) 650 mg PO Q6H PRN PRN Reason: PAIN Albuterol/Ipratropium (Duoneb -) 1 amp NEB RQID [facility] Last Admin: 10/03/18 11:05 Dose: 1 amp Amlodipine Besylate (Norvasc -) 10 mg PO DAILY [facility] Last Admin: 10/03/18 10:08 Dose: 10 mg Aspirin (Ecotrin -) 81 mg PO DAILY [facility] Last Admin: 10/03/18 10:07 Dose: 81 mg Clopidogrel Bisulfate (Plavix -) 75 mg PO DAILY [facility] Last Admin: 10/03/18 10:08 Dose: 75 mg Docusate Sodium (Colace -) 100 mg PO BID [facility] Last Admin: 10/03/18 10:08 Dose: 100 mg Folic Acid (Folic Acid -) 1 mg PO DAILY [facility] Last Admin: 10/03/18 10:07 Dose: 1 mg Hydralazine HCl (Apresoline -) 50 mg PO TID [facility] Last Admin: 10/03/18 14:52 Dose: 50 mg Azithromycin (Zithromax 500mg Ivpb (Pre-Docked)) 500 mg in 250 mls @ 250 mls/ hr IVPB DAILY [facility] Last Admin: 10/03/18 10:09 Dose: 250 mls/hr Ceftriaxone Sodium 2 gm/ (Dextrose) 100 mls @ 200 mls/hr IVPB DAILY [facility]; Protocol Last Admin: 10/03/18 10:09 Dose: 200 mls/hr Insulin Aspart (Novolog Vial Sliding Scale -) 1 vial SQ ACHS [facility]; Protocol Last Admin: 10/03/18 11:35 Dose: 6 units Lisinopril (Prinivil) 40 mg PO BID [facility] Last Admin: 10/03/18 10:08 Dose: 40 mg Lorazepam (Ativan -) 2 mg PO HS PRN PRN Reason: ANXIETY Last Admin: 10/02/18 21:27 Dose: 2 mg Lorazepam (Ativan -) 1 mg PO BID [facility] Stop: 10/03/18 20:50 Last Admin: 10/03/18 10:07 Dose: 1 mg Methotrexate (Mexate -) 22.5 mg PO Tu@1000 [facility] Methylprednisolone Sodium Succinate (Solu-Medrol -) 60 mg IVPUSH Q8H-IV [facility] Last Admin: 10/03/18 10:09 Dose: 60 mg Nebivolol (Bystolic -) 20 mg PO BID [facility] Last Admin: 10/03/18 10:08 Dose: 20 mg Non-Formulary Medication ([place]-3 Fatty Acids/Fish Oil [Fish Oil 1,000 Mg Capsule]) 1 each PO DAILY [facility] Non-Formulary Medication (Ubidecarenone [Coq-10]) 300 mg PO DAILY [facility] Nystatin (Nystatin Oral Suspension -) 500,000 units PO Q6HPO [facility] Last Admin: 10/03/18 12:45 Dose: 500,000 units Pantoprazole Sodium (Protonix -) 40 mg PO BID [facility] Last Admin: 10/03/18 10:07 Dose: 40 mg Polyethylene Glycol (Miralax (For Daily Use) -) 17 gm PO DAILY [facility] Last Admin: 10/03/18 10:09 Dose: 17 gm - Objective Vital Signs: Vital Signs Temperature 98.3 F 10/03/18 14:51 Pulse Rate 74 10/03/18 14:51 Respiratory Rate 20 10/03/18 14:51 Blood Pressure 126/92 10/03/18 14:51 O2 Sat by Pulse Oximetry (%) 94 L 10/02/18 21:00 Constitutional: Yes: Obese Cardiovascular: Yes: S1, S2, S4 Respiratory: Yes: WNL Gastrointestinal: Yes: Soft ...Rectal Exam: Yes: Deferred Genitourinary: No: Anuria Musculoskeletal: Yes: Muscle Weakness Extremities: Yes: WNL Edema: No Peripheral Pulses WNL: Yes Integumentary: Yes: WNL Neurological: Yes: Alert, Oriented, Weakness Psychiatric: Yes: WNL Labs: CBC, BMP 10/03/18 06:10 10/03/18 06:10 INR, PTT INR 1.13 (0.83-1.09) H 10/01/18 17:10 Abnormal Lab Results 10/03/18 10/03/18 06:10 06:10 WBC 15.4 H MCV 97.5 H RDW 18.4 H Absolute Neuts (auto) 14.4 H Neutrophils % 93.8 H Neutrophils % (Manual) 94.0 H Lymphocytes % 2.7 L D Lymphocytes % (Manual) 3.0 L D Monocytes % 3.3 L Monocytes % (Manual) 3 L Sodium 135 L BUN 35 H Creatinine 1.5 H Random Glucose 172 H HDL Cholesterol 28 L - ....Imaging Chest X-ray: Image Reviewed (midly decreased left infiltrate) EKG: Image Reviewed (NSR) Problem List - Problems (1) Obesity Code(s): E66.9 - OBESITY, UNSPECIFIED (2) CAD S/P percutaneous coronary angioplasty Assessment/Plan: s/p multiple coronary artery stents, most recently this year. Continue ASA and clopidogrel. Code(s): I25.10 - ATHSCL HEART DISEASE OF [place] CORONARY ARTERY W/O ANG PCTRS; Z98.61 - CORONARY ANGIOPLASTY STATUS (3) Diabetes mellitus Code(s): E11.9 - TYPE 2 DIABETES MELLITUS WITHOUT COMPLICATIONS (4) HTN (hypertension) Assessment/Plan: On hydralazine, Nebivolol, lisinopril, amlodipine. ECHO: normal LVEF. EKG: normal sinus rhythm. F/u BP and HR. Code(s): I10 - ESSENTIAL (PRIMARY) HYPERTENSION (5) Pneumonia involving left lung Assessment/Plan: Continue antibiotics per ID. Code(s): J18.9 - PNEUMONIA, UNSPECIFIED ORGANISM Qualifiers: Pneumonia type: due to unspecified organism Lung location: unspecified part of lung Qualified Code(s): J18.9 - Pneumonia, unspecified organism (6) Psoriatic arthritis Code(s): L40.50 - ARTHROPATHIC PSORIASIS, UNSPECIFIED (7) SOB (shortness of breath) Code(s): R06.02 - SHORTNESS OF BREATH (8) Sedentary lifestyle Code(s): Z91.89 - OTH PERSONAL RISK FACTORS, NOT ELSEWHERE CLASSIFIED (9) Hyperlipidemia Code(s): E78.5 - HYPERLIPIDEMIA, UNSPECIFIED (10) Pneumonia Code(s): J18.9 - PNEUMONIA, UNSPECIFIED ORGANISM
[2018-10-03] MEDS: LORazepam 1 MG TABLET PO PRN (21:01)
[2018-10-03] MEDS ORDERED: PT OWN MED DRAWER 7, Y5N ONE (21:17)
[2018-10-04] MEDS: methylPREDNISolone NA SUCC 40 MG/1 ML VIAL IVPUSH SCH ×4 (02:45→21:45)
[2018-10-04] MEDS: hydrALAZINE HCL 25 MG TABLET (FP) PO SCH ×3 (05:34→21:14)
[2018-10-04] MEDS: NYSTATIN 500,000 UNITS/5 ML SUSPENSION PO SCH ×5 (05:34→23:59)
[2018-10-04] MEDS: INSULIN SLIDING SCALE (NOVOLOG) 1 VIAL SQ SCH ×4 (06:02→21:15)
[2018-10-04] MEDS: LISINOPRIL 20 MG TABLET (FP) PO SCH ×3 (08:48→21:14)
[2018-10-04] MEDS: PATIENT'S OWN MEDICATION (NON-FORMULARY) (Nebivolol Hcl [Bystolic] 20 MG) PO SCH (08:49)
[2018-10-04] MEDS: ALBUTEROL SO4 2.5/IPRATROPIUM 0.5 INH SOL 3 ML VIAL.NEB. NEB SCH ×4 (08:58→20:30)
[2018-10-04] MEDS: UBIDECARENONE 300 MG PO SCH (09:12)
[2018-10-04] MEDS ORDERED: DEXTROSE 5%-WATER 100 ML IVPB ONE (09:39)
[2018-10-04] MEDS: ASPIRIN COATED 81 MG TABLET.EC PO SCH (09:51)
[2018-10-04] MEDS: CLOPIDOGREL BISULFATE 75 MG TABLET (FP) PO SCH (09:51)
[2018-10-04] MEDS: PANTOPRAZOLE 40 MG TABLET (FP) PO SCH ×2 (09:51→21:14)
[2018-10-04] MEDS: NEBIVOLOL 10 MG TABLET (FP) PO SCH ×2 (09:51→21:14)
[2018-10-04] MEDS: DOCUSATE SODIUM 100 MG CAPSULE (FP) PO SCH ×2 (09:51→21:14)
[2018-10-04] MEDS: amLODIPine BESYLATE 10 MG TABLET (FP) PO SCH (09:51)
[2018-10-04] MEDS: CEFTRIAXONE 2 GM in DEXTROSE 5%-WATER 100 ML IVPB SCH (09:52)
[2018-10-04] MEDS: AZITHROMYCIN IVPB 500 MG/250 ML BAG IVPB SCH (09:52)
[2018-10-04] MEDS: POLYETHYLENE GLYCOL 3350 119 GM BTL PO SCH (09:52)
[2018-10-04] MEDS: FOLIC ACID 1 MG TABLET (FP) PO SCH (09:52)
[2018-10-04] MEDS ORDERED: LORazepam 1 MG TABLET PO PRN (10:13)
[2018-10-04] MEDS ORDERED: INSULIN (NOVOLOG) ASPART 100 UNITS/ML 10ML VIAL ONE ×2 (11:54→17:20)
--- NOTE | 2018-10-04 21:02 | PN ---
Progress Note (short form) - Note Progress Note: patient seen and examined in room states feeling better continues with cough now less productive Vital Signs Period Temp Pulse Resp BP Sys/Crespo Pulse Ox Last 24 Hr 97.7 F-98.6 F 64-84 18-22 95-140/61-[address] / ambulating in room and hallway without neck supple heart s1/S2 regular lungs improved BS rhonchi mid left filed no wheezing abd soft non tender ext no calf tenderness / no edema CBC, BMP 10/03/18 06:10 10/03/18 06:10 CBC, BMP 10/02/18 06:30 10/02/18 06:30 Microbiology 10/03/18 09:05 Blood - Peripheral Venous Blood Culture - Preliminary NO GROWTH OBTAINED AFTER 24 HOURS, INCUBATION TO CONTINUE FOR 4 DAYS. 10/03/18 09:00 Blood - Peripheral Venous Blood Culture - Preliminary NO GROWTH OBTAINED AFTER 24 HOURS, INCUBATION TO CONTINUE FOR 4 DAYS. 10/03/18 11:37 Urine For Antigen Detection Legionella Antigen - Final 10/03/18 11:37 Urine For Antigen Detection Streptococcus pneumoniae Antigen (M - Final Active Medications Acetaminophen (Tylenol -) 650 mg PO Q6H PRN PRN Reason: PAIN Albuterol/Ipratropium (Duoneb -) 1 amp NEB RQID [facility] Last Admin: 10/04/18 15:31 Dose: 1 amp Amlodipine Besylate (Norvasc -) 10 mg PO DAILY [facility] Last Admin: 10/04/18 09:51 Dose: 10 mg Aspirin (Ecotrin -) 81 mg PO DAILY [facility] Last Admin: 10/04/18 09:51 Dose: 81 mg Clopidogrel Bisulfate (Plavix -) 75 mg PO DAILY [facility] Last Admin: 10/04/18 09:51 Dose: 75 mg Docusate Sodium (Colace -) 100 mg PO BID [facility] Last Admin: 10/04/18 09:51 Dose: 100 mg Folic Acid (Folic Acid -) 1 mg PO DAILY [facility] Last Admin: 10/04/18 09:52 Dose: 1 mg Hydralazine HCl (Apresoline -) 50 mg PO TID [facility] Last Admin: 10/04/18 14:16 Dose: Not Given Azithromycin (Zithromax 500mg Ivpb (Pre-Docked)) 500 mg in 250 mls @ 250 mls/ hr IVPB DAILY [facility] Last Admin: 10/04/18 09:52 Dose: 250 mls/hr Ceftriaxone Sodium 2 gm/ (Dextrose) 100 mls @ 200 mls/hr IVPB DAILY [facility]; Protocol Last Admin: 10/04/18 09:52 Dose: 200 mls/hr Insulin Aspart (Novolog Vial Sliding Scale -) 1 vial SQ ACHS [facility]; Protocol Last Admin: 10/04/18 17:21 Dose: 2 units Lisinopril (Prinivil) 40 mg PO BID [facility] Last Admin: 10/04/18 09:51 Dose: 40 mg Lorazepam (Ativan -) 1 mg PO Q12H PRN PRN Reason: ANXIETY Lorazepam (Ativan -) 2 mg PO HS [facility] Methotrexate (Mexate -) 22.5 mg PO Tu@1000 [facility] Methylprednisolone Sodium Succinate (Solu-Medrol -) 60 mg IVPUSH Q8H-IV [facility] Last Admin: 10/04/18 18:08 Dose: 60 mg Nebivolol (Bystolic -) 20 mg PO BID [facility] Last Admin: 10/04/18 09:51 Dose: 20 mg Nystatin (Nystatin Oral Suspension -) 500,000 units PO Q6HPO [facility] Last Admin: 10/04/18 18:08 Dose: 500,000 units Pantoprazole Sodium (Protonix -) 40 mg PO BID [facility] Last Admin: 10/04/18 09:51 Dose: 40 mg Polyethylene Glycol (Miralax (For Daily Use) -) 17 gm PO DAILY [facility] Last Admin: 10/04/18 09:52 Dose: 17 gm #PNA expectorant ABX / nebulizer / steroids / #HTN continue home med #DM monitor for inc BS due to steroids cover with sliding scale #Psoriatic arthitis on MTX weekly pain meds PRN #ADHD hold meds #CAD s/p multiple cath - c/stent Problem List - Problems (1) Pneumonia involving left lung Code(s): J18.9 - PNEUMONIA, UNSPECIFIED ORGANISM Qualifiers: Pneumonia type: due to unspecified organism Lung location: unspecified part of lung Qualified Code(s): J18.9 - Pneumonia, unspecified organism (2) Hypoxemia requiring supplemental oxygen Code(s): R09.02 - HYPOXEMIA; Z99.81 - DEPENDENCE ON SUPPLEMENTAL OXYGEN (3) SOB (shortness of breath) Code(s): R06.02 - SHORTNESS OF BREATH (4) HTN (hypertension) Code(s): I10 - ESSENTIAL (PRIMARY) HYPERTENSION (5) Psoriatic arthritis Code(s): L40.50 - ARTHROPATHIC PSORIASIS, UNSPECIFIED (6) CAD S/P percutaneous coronary angioplasty Code(s): I25.10 - ATHSCL HEART DISEASE OF [place] CORONARY ARTERY W/O ANG PCTRS; Z98.61 - CORONARY ANGIOPLASTY STATUS (7) ADHD (attention deficit hyperactivity disorder), combined type Code(s): F90.2 - ATTENTION-DEFICIT HYPERACTIVITY DISORDER, COMBINED TYPE (8) Diabetes mellitus Code(s): E11.9 - TYPE 2 DIABETES MELLITUS WITHOUT COMPLICATIONS
[2018-10-04] MEDS ORDERED: PT OWN MED DRAWER 7, Y5N ONE (21:05)
[2018-10-04] MEDS ORDERED: LORazepam 1 MG TABLET PO SCH (22:00)
[2018-10-05] MEDS: NYSTATIN 500,000 UNITS/5 ML SUSPENSION PO SCH ×2 (05:44→11:48)
[2018-10-05] MEDS: hydrALAZINE HCL 25 MG TABLET (FP) PO SCH ×2 (05:45→13:57)
[2018-10-05] MEDS: INSULIN SLIDING SCALE (NOVOLOG) 1 VIAL SQ SCH ×2 (06:14→11:48)
[2018-10-05] MEDS ORDERED: INSULIN (NOVOLOG) ASPART 100 UNITS/ML 10ML VIAL ONE ×2 (06:20→11:43)
[2018-10-05 08:00] LABS: BASO % 0.4 % (0-2.0); LYMPH % 3.6 % (8-40); MCH 31.2 pg (25.7-33.7); MCHC 31.9 g/dl (32.0-35.9); MEAN CELL VOLUME 97.8 fl (80-96); MEAN PLT VOLUME 7.9 fl (7.5-11.1); PLATELET COUNT 284 K/MM3 (134-434); RDW 18.3 % (11.9-15.9); WHITE BLOOD COUNT 16.4 K/mm3 (4.0-10.0)
[2018-10-05] MEDS: ALBUTEROL SO4 2.5/IPRATROPIUM 0.5 INH SOL 3 ML VIAL.NEB. NEB SCH ×2 (08:12→12:26)
[2018-10-05 08:25] LABS: CALCIUM 8.9 mg/dL (8.5-10.1); CREATININE 1.3 mg/dL (0.55-1.3); MAGNESIUM 2.6 mg/dL (1.8-2.4); POTASSIUM 4.9 mmol/L (3.5-5.1)
[2018-10-05 09:02] VITALS: PULSE 68
[2018-10-05] MEDS ORDERED: DEXTROSE 5%-WATER 100 ML IVPB ONE (09:30)
[2018-10-05] MEDS: LISINOPRIL 20 MG TABLET (FP) PO SCH (09:40)
[2018-10-05] MEDS: CEFTRIAXONE 2 GM in DEXTROSE 5%-WATER 100 ML IVPB SCH (09:40)
[2018-10-05] MEDS: NEBIVOLOL 10 MG TABLET (FP) PO SCH (09:40)
[2018-10-05] MEDS: ASPIRIN COATED 81 MG TABLET.EC PO SCH (09:40)
[2018-10-05] MEDS: FOLIC ACID 1 MG TABLET (FP) PO SCH (09:40)
[2018-10-05] MEDS: AZITHROMYCIN IVPB 500 MG/250 ML BAG IVPB SCH (09:40)
[2018-10-05] MEDS: CLOPIDOGREL BISULFATE 75 MG TABLET (FP) PO SCH (09:40)
[2018-10-05] MEDS: PANTOPRAZOLE 40 MG TABLET (FP) PO SCH (09:40)
[2018-10-05] MEDS: DOCUSATE SODIUM 100 MG CAPSULE (FP) PO SCH (09:40)
[2018-10-05] MEDS: methylPREDNISolone NA SUCC 40 MG/1 ML VIAL IVPUSH SCH (09:40)
[2018-10-05] MEDS: amLODIPine BESYLATE 10 MG TABLET (FP) PO SCH (09:40)
[2018-10-05] MEDS: POLYETHYLENE GLYCOL 3350 119 GM BTL PO SCH (09:41)
[2018-10-05 11:00] LABS: ANISOCYTOSIS 0; MACROCYTOSIS 0; PLATELET ESTIMATE NORMAL
--- NOTE | 2018-10-05 12:25 | DS ---
Physical Examination Vital Signs: Vital Signs Temperature 98.8 F 10/05/18 09:01 Pulse Rate 68 10/05/18 09:01 Respiratory Rate 20 10/05/18 09:01 Blood Pressure 140/70 10/05/18 09:01 O2 Sat by Pulse Oximetry (%) 96 10/04/18 21:00 Findings/Remarks: 67 y/o male PMH of DM/ HTN / with 2 -3 week hx of respiratory symptoms presenting to [facility] ER complaining of shortness of breath x two weeks. Denies constant chest pain but occasionally some discomfort on the sides of the chest exacerbated by coughing. Initially was concerned it was a side effect of Desvenlafaxine (Pristiq). Dose was temporarily increased to 50 mg two weeks ago then decreased to 25 mg with some improvement of sx. Pt states coughing and of breath became worse over last week. He was seen at office yesterday --clinical exam c/w pneumonia. He was started on ABX / Steroids / inhaler and instructed to call or return to office if worse. Pt check his SPO2 on home monitor and became concerned when it read 88%. Pt elected to seek emergent evaluation after the hypoxic reading. Patient admitted continued on ABX / IV steroids nebulizer treatments. Originally was started on O2 and now ambulating / eating and not requiring O2 for any activity. Patient reports improvement with respect to breathing / less coughing / and resolution of oral thrush. clinically improved -- steroids tapered / abx completed/ -- recommend ----continued expectorant for 1-2 weeks ----prednisone 20 mg q am ( with breakfast) for next 3 days ----continue home meds + PPi follow up at office next week Constitutional: Yes: Well Nourished, No Distress, Calm Eyes: Yes: WNL, Conjunctiva Clear, EOM Intact HENT: Yes: WNL, Atraumatic, Normocephalic Neck: Yes: WNL, Supple, Trachea Midline Cardiovascular: Yes: WNL, Regular Rate and Rhythm Respiratory: Yes: WNL, Regular, CTA Bilaterally Gastrointestinal: Yes: WNL, Normal Bowel Sounds, Soft ...Rectal Exam: Yes: Deferred Renal/: Yes: WNL Breast(s): Yes: WNL Musculoskeletal: Yes: WNL Extremities: Yes: WNL Edema: No Peripheral Pulses WNL: Yes Integumentary: Yes: WNL Neurological: Yes: WNL, Alert, Oriented ...Motor Strength: WNL Psychiatric: Yes: WNL Labs: CBC, BMP 10/05/18 05:30 10/05/18 05:30 Discharge Summary Reason For Visit: PNEUMONIA INVOLVING L LUNG,SHORTNESS OF BREATH Current Active Problems ADHD (attention deficit hyperactivity disorder), combined type (Acute) CAD S/P percutaneous coronary angioplasty (Acute) Diabetes mellitus (Acute) HTN (hypertension) (Acute) Hyperlipidemia (Acute) Hypoxemia requiring supplemental oxygen (Acute) Obesity (Acute) Pneumonia (Acute) Pneumonia involving left lung (Acute) Psoriatic arthritis (Acute) SOB (shortness of breath) (Acute) Sedentary lifestyle (Acute) Pneumonia out patient treatment started with clarithromycin 2 days prior to admission during hospital stay treated with rocephin 1 gram ( 5 days) Zithromycin 500 mg ( 5 days ) will follow up at office Sunday Condition: Improved - Instructions Disposition: HOME - Home Medications Comprehensive Discharge Medication List: Ambulatory Orders Amlodipine Besylate 10 mg PO DAILY 10/01/18 Aspirin Coated [Ecotrin -] 81 mg PO DAILY 10/01/18 Clopidogrel Bisulfate [Plavix] 75 mg PO DAILY 10/01/18 Famotidine [Pepcid] 20 mg PO BID 10/01/18 Fenofibrate Nanocrystallized [Fenofibrate] 145 mg PO DAILY 10/01/18 Folic Acid 1 mg PO DAILY 10/01/18 Hydralazine HCl 50 mg PO TID 10/01/18 Hydrocodone/Acetaminophen [[place] 7.5-325 Tablet] 1 each PO PRN 10/01/18 Lisinopril [Prinivil -] 40 mg PO BID 10/01/18 Lorazepam [Ativan] 1 mg PO PRN 10/01/18 Metformin HCl [Glucophage] 2,000 mg PO HS 10/01/18 Methotrexate [Mexate -] 22.5 mg WEEKLY 10/01/18 Methylphenidate HCl [Ritalin LA] 20 mg PO PRN 10/01/18 Nebivolol HCl [Bystolic] 20 mg PO BID 10/01/18 [place]-3 Fatty Acids/Fish Oil [Fish Oil 1,000 mg Capsule] 1 each PO DAILY Simvastatin [Zocor -] 40 mg PO DAILY 10/01/18 Testosterone Cypionate [Depo-Testosterone] 200 mg IM MONTHLY 10/01/18 Tizanidine HCl 2 mg PO PRN 10/01/18 Ubidecarenone [Coq-10] 300 mg PO DAILY 10/01/18 prednisone 20 mg q am with food for 3 days
[2018-10-05 13:58] VITALS: BP 149/71; TEMP 97.7
[2018-10-08] MEDS ORDERED: METHOTREXATE 2.5 MG TABLET PO SCH (10:00)
== END 2018-10-05 14:01 | disposition home or self-care (01) | DRG 195 ==
LOC: JER 16:26 → J6S 20:37
PROVIDERS: ADMIT Family Medicine; ATTEND Family Medicine
DX: J18.1 Lobar pneumonia, unspecified organism (principal); E11.9 Type 2 diabetes mellitus without complications; E78.5 Hyperlipidemia, unspecified; I10 Essential (primary) hypertension; I25.10 Atherosclerotic heart disease of native coronary artery without angina pectoris; F90.1 Attention-deficit hyperactivity disorder, predominantly hyperactive type; L40.50 Arthropathic psoriasis, unspecified; E29.1 Testicular hypofunction; F41.9 Anxiety disorder, unspecified; R09.02 Hypoxemia; Z99.81 Dependence on supplemental oxygen; E66.9 Obesity, unspecified; Z68.33 Body mass index [BMI] 33.0-33.9, adult; Z91.89 Other specified personal risk factors, not elsewhere classified; Z95.5 Presence of coronary angioplasty implant and graft
CPT/HCPCS: 36415; 71045-TC-FY; 71046-TC-FY; 80048; 80053; 80061; 82550; 82553; 82962; 83721; 83735; 84443; 84484; 85025; 85027; 85610; 87040; 87899; 93005; 93010; 93306-TC; 94640; 97116-GP; 97161-GP; 99284-25

== ENCOUNTER 2019-12-21 11:10 | Inpatient (IN) | payer OTHER ==
[2019-12-21 11:19] VITALS: BMI 32.6
[2019-12-21 12:17] LABS: BASO % 0.5 % (0-2.0); EOS % 0.1 % (0-4.5); HEMATOCRIT 41.1 % (35.4-49); HEMOGLOBIN 13.5 GM/dL (11.7-16.9); LYMPH % 3.9 % (8-40); MCH 30.5 pg (25.7-33.7); MEAN CELL VOLUME 92.6 fl (80-96); MEAN PLT VOLUME 8.6 fl (7.5-11.1); MONO % 2.3 % (3.8-10.2); NEUT % 93.2 % (42.8-82.8); PLATELET COUNT 191 K/MM3 (134-434); RBC 4.43 M/mm3 (4.00-5.60); WHITE BLOOD COUNT 14.7 K/mm3 (4.0-10.0)
--- NOTE | 2019-12-21 12:18 | PDOC ---
Documentation entered by Jose E Grewal SCRIBE, acting as scribe for Susy Joshi MD. Susy Joshi MD: This documentation has been prepared by the Moe johnson Nirvannie, SCRIBE, under my direction and personally reviewed by me in its entirety. I confirm that the documentation accurately reflects all work, treatment, procedures, and medical decision making performed by me. History of Present Illness - General Chief Complaint: Respiratory Stated Complaint: COVID SYMPTOMS Time Seen by Provider: 12/21/19 11:28 History Source: Patient Exam Limitations: No Limitations - History of Present Illness Initial Comments: 12/21/19 12:11 69-year-old male history of prediabetes on metformin Psoriatic arthritis on methotrexate, CAD with multiple cardiac stents ,hypertension, hyperlipidemia who was recently COVID positive in september. did test negative since then. is here today with recurrent symptoms of shortness of breath fever myalgia decreased appetite. Patient denies any urinary symptoms, denies any abdominal pain. States he did check his pulse ox at home it was only 94% he had a fever of 101 did take Tylenol early this a.m. no nausea no vomiting just decreased appetite overall. he feels short of breath and it is worse with lying flat. no leg swelling patient is currently on Eliquis has not had any DVTs or PEs in his course no nausea no vomiting no other current complaints Past History - Medical History Allergies/Adverse Reactions: Allergies Allergy/AdvReac Type Severity Reaction Status Date / Time Sulfa (Sulfonamide Allergy Verified 12/21/19 11:14 Antibiotics) Home Medications: Ambulatory Orders Amlodipine Besylate 10 mg PO DAILY 10/01/18 Aspirin Coated [Ecotrin -] 81 mg PO DAILY 10/01/18 Fenofibrate Nanocrystallized [Fenofibrate] 145 mg PO DAILY 10/01/18 Folic Acid 1 mg PO DAILY 10/01/18 Hydralazine HCl 50 mg PO TID 10/01/18 Hydrocodone/Acetaminophen [[place] 7.5-325 Tablet] 1 each PO PRN 10/01/18 Lisinopril [Prinivil -] 40 mg PO BID 10/01/18 Lorazepam [Ativan] 1 mg PO PRN 10/01/18 Metformin HCl [Glucophage] 1,000 mg PO BID 10/01/18 Methotrexate [Mexate -] 22.5 mg WEEKLY 10/01/18 Methylphenidate HCl [Ritalin LA] 20 mg PO QID 10/01/18 Nebivolol HCl [Bystolic] 20 mg PO BID 10/01/18 Simvastatin [Zocor -] 40 mg PO DAILY 10/01/18 Testosterone Cypionate [Depo-Testosterone] 200 mg IM MONTHLY 10/01/18 Ubidecarenone [Coq-10] 300 mg PO DAILY 10/01/18 Gabapentin [Neurontin -] 100 mg PO DAILY 09/29/19 Icosapent Ethyl [Vascepa] 2 gm PO BID 09/29/19 Lorazepam [Ativan] 1 mg PO BID PRN 09/29/19 Lorazepam [Ativan] 2 mg PO HS 09/29/19 Multivitamin/Iron/Folic Acid [Centrum Adults Tablet] 1 each PO DAILY 09/29/19 Amlodipine Besylate [Norvasc -] 10 mg PO DAILY tablet 10/07/19 Apixaban [Eliquis -] 5 mg PO BID #60 tablet 10/07/19 Aspirin Coated [Ecotrin -] 81 mg PO DAILY tablet.ec 10/07/19 Aspirin [ASA -] 81 mg PO DAILY tab.chew 10/07/19 Baclofen [Lioresal -] 5 mg PO TID #90 tablet 10/07/19 Cefuroxime Axetil [Ceftin -] 500 mg PO BID #14 tablet 10/07/19 Cholecalciferol (Vitamin D3) [Vitamin D3 -] 5,000 unit PO DAILY tab 10/07/19 Fenofibric Acid [Trilipix -] 135 mg PO DAILY cap 10/07/19 Folic Acid - 1 mg PO DAILY tablet 10/07/19 Gabapentin [Neurontin -] 100 mg PO DAILY capsule 10/07/19 LORazepam [Ativan] 1 mg PO BID PRN tablet 10/07/19 LORazepam [Ativan] 2 mg PO HS tablet 10/07/19 Lisinopril [Prinivil] 40 mg PO BID tablet 10/07/19 Nebivolol [Bystolic -] 20 mg PO BID tab 10/07/19 Pantoprazole Sodium [Protonix -] 40 mg PO BID #60 tablet.ec 10/07/19 Sodium Chloride Nasal [place] [[place] Nasal [place] -] 2 spray NS BID PRN 30 Days #1 spray 10/07/19 Zinc Sulfate [Orazinc -] 220 mg PO BID #60 capsule 10/07/19 hydrALAZINE HCL [Apresoline -] 50 mg PO TID tablet 10/07/19 metFORMIN HCL [Glucophage -] 1,000 mg PO BID@0700,1630 tablet 10/07/19 oxyCODONE HCL [Roxicodone -] 5 mg PO Q6H PRN tablet 10/07/19 predniSONE [Deltasone -] 40 mg PO DAILY #14 tablet 10/07/19 Cardiac Disorders: Yes COPD: No Diabetes: Yes HTN: Yes Hypercholesterolemia: Yes Psychiatric Problems: Yes (ANXIETY ADHD) - Surgical History Cardiac Surgery: Yes (STENTS X 8) - Psycho-Social/Smoking History Smoking History: Never smoked Have you smoked in the past 12 months: No - Substance Abuse Hx (Audit-C & DAST Scrn) How often the patient has a drink containing alcohol: Never Score: In Men: 4 or > Positive; In Women: 3 or > Positive: 0 Screen Result (Pos requires Nsg. Audit-10AR): Negative In the last yr the pt used illegal drug/Rx for NonMed reason: No Score: Yes response is considered Positive: 0 Screen Result (Positive result requires Nsg. DAST-10): Negative Review of Systems - Review of Systems Constitutional: Yes: Chills, Fever Respiratory: Yes: Cough, Shortness of Breath Cardiac (ROS): No: Chest Pain, Edema ABD/GI: Yes: Poor Appetite. No: Nausea, Vomiting : No: Burning, Dysuria, Discharge Musculoskeletal: Yes: Muscle Pain, Other (ho arthritis). No: Back Pain Hematologic/Lymphatic: Yes: Other (on eliquis) All Other Systems: Reviewed and Negative *Physical Exam - Vital Signs Last Vital Signs Temp Pulse Resp BP Pulse Ox 97.4 F L 66 18 124/100 99 12/21/19 11:14 12/21/19 11:14 12/21/19 11:14 12/21/19 11:14 12/21/19 11:14 - Physical Exam 12/21/19 12:16 Awake alert no acute distress lungs are clear bilaterally patient has normal respiratory effort current sat is 97% on room air heart is regular without any murmurs rubs or gallops abdomen is soft and nontender extremities are warm and well-perfused skin is warm and dry no appreciated rash neurologically patient is awake alert and oriented x3 Heart Score/ECG Review #1 General ECG Interpretation: Sinus Rhythm, Normal Rate (67), Normal Intervals, No acute ischemic changes ED Treatment Course - LABORATORY CBC & Chemistry Diagram: 12/21/19 11:40 12/21/19 11:40 Medical Decision Making - Medical Decision Making 12/21/19 12:16 69-year-old male history of CAD hypertension hyperlipidemia prediabetes and autoimmune arthritis here with recurrent COVID symptoms following a positive COVID in September differential includes post viral myopericarditis AR CHF pneumonia recurrent COVID infection or inflammatory syndrome PE however less likely due to the fact the patient is on Eliquis plan chest x-ray basic labs with inflammatory markers will be sent including a d-dimer patient was hydrated with 1 L normal saline currently is afebrile Focused ED ultrasound TTE was performed 4 views of the heart were obtained overall patient has preserved contractility there is no RV dilation or strain. No pericardial effusion appreciated Impression normal echo 12/21/19 12:53 pt with focal infiltrate left lung, perihilar. due to fact pt recently admitted in hospital, and immunosuppressed on MTX, will treat or health care associated pna. covid resent. cultures sent. given vanco and zosyn. positive wb 14. Discharge - Discharge Information Problems reviewed: Yes Clinical Impression/Diagnosis: Pneumonia Condition: Improved - Admission Yes - Follow up/Referral Referrals: Pedro Maravilla [Primary Care Provider] - - Patient Discharge Instructions - Post Discharge Activity
[2019-12-21 12:37] LABS: ALBUMIN 3.7 g/dl (3.4-5.0); ALK PHOS 49 U/L (45-117); ANION GAP 8 MMOL/L (8-16); BILIRUBIN,TOTAL 0.7 mg/dL (0.2-1); BLOOD UREA NITROGEN 16.4 mg/dL (7-18); CHLORIDE 103 mmol/L (98-107); CO2 24 mmol/L (21-32); CREATININE 1.6 mg/dL (0.55-1.3); GLUCOSE,RANDOM 119 mg/dL (74-106); LDH 298 U/L (87-246); N-TERMINAL BNP 352.6 pg/ml (5-125); POTASSIUM 4.4 mmol/L (3.5-5.1); SGOT/AST 23 U/L (15-37); SGPT/ALT 27 U/L (13-61); SODIUM 135 mmol/L (136-145); TOT PROT 6.9 g/dl (6.4-8.2)
[2019-12-21] MEDS ORDERED: PIPERACILLIN/TAZOB 3.375 GM 3.375 GM in DEXTROSE 5%-WATER - 50 ML IVPB ONE (12:52)
[2019-12-21] MEDS ORDERED: VANCOMYCIN 1 GM in D5W (PRE-DOCKED) 1,000 MG/250 ML IVPB ONE (12:52)
[2019-12-21] MEDS ORDERED: SODIUM CHLORIDE 0.9% 1000 ML INFUS.BAG IV ONE (12:55)
[2019-12-21 13:18] LABS: ANISOCYTOSIS 0; MACROCYTOSIS 0; PLATELET ESTIMATE NORMAL
[2019-12-21] MEDS ORDERED: PIPERACILLIN/TAZOB 3.375 GM 3.375 GM/50 ML BAG IVPB ONE (13:29)
[2019-12-21 14:15] LABS: URINE APPEARANCE CLEAR; URINE BILIRUBIN NEGATIVE (NEGATIVE); URINE COLOR YELLOW; URINE GLUCOSE (UA) NEGATIVE (NEGATIVE); URINE KETONE NEGATIVE (NEGATIVE); URINE LEUK ESTERASE NEGATIVE (NEGATIVE); URINE NITRITE NEGATIVE (NEGATIVE); URINE PROTEIN TRACE (NEGATIVE)
[2019-12-21] MEDS ORDERED: VANCOMYCIN 1 GRAM (PRE-DOCKED) 1,000 MG/250 ML BAG IVPB ONE (15:01)
--- NOTE | 2019-12-21 16:47 | HP ---
Admitting History and Physical - Admission Chief Complaint: Acute shortness of breath, loss of appetite, fever, and myalg ia. History of Present Illness: This 69 yr old w/m with PMH of prediabetes, psoriatic arthritis, CAD with multiple stents, HTN, HLD, and personal hx of Covid 19 pneumonitis admitted via ER with an acute shortness of breath, fever, myalgia, and loss of appetite. 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: Alzheimer's, CVA, Dementia, Migraine, Multiple Sclerosis, Peripheral Neuropathy, Parkinson's, Seizure, Syncope, TIA, Vertigo, Other Cardiovascular: Yes: CAD, HTN, Hyperlipdemia Pulmonary: Yes: Pneumonia, Other (Covid 19 pneumonitis) Gastrointestinal: Yes: GERD Hepatobiliary: No: Cirrhosis, Cholelithiasis, Cholecystitis, Choledocholithiasis, Hepatitis A, Hepatitis B, Hepatitis C, Other Renal/: Yes: BPH Heme/Onc: No: Anemia, B12 Deficiency, Bleeding Disorder, Cancer, Current Chemotherapy, Current Radiation Therapy, Hemochromatosis, Hypercoaguable State, Myeloproliferative Synd, Sickle Cell Disease, Sickle Cell Trait, Thrombocytopenia, Other Infectious Disease: Yes: Other (Covid 19 pneumonitis) Psych: Yes: Anxiety Musculoskeletal: Yes: Chronic low back pain Rheumatology: Yes: Other (Psoriatic arthritis - on methotrexate 22.5mg po once weekly) ENT: No: Allergic Rhinitis, Sinusitis, Other Endocrine: Yes: Diabetes Mellitus Dermatology: No: Basal Cell, Cellulitis, Eczema, Melanoma, Psoriasis, Squamous Cell, Other - Past Surgical History Past Surgical History: Yes: Stent - Smoking History Smoking history: Never smoked Have you smoked in the past 12 months: No - Alcohol/Substance Use Hx Alcohol Use: No History of Substance Use: reports: None - Social History Usual Living Arrangement: Yes: Other (living with other priests) Home Medications - Allergies Allergies/Adverse Reactions: Allergies Allergy/AdvReac Type Severity Reaction Status Date / Time Sulfa (Sulfonamide Allergy Verified 12/21/19 11:14 Antibiotics) - Home Medications Home Medications: Ambulatory Orders Fenofibrate Nanocrystallized [Fenofibrate] 145 mg PO DAILY 10/01/18 Hydrocodone/Acetaminophen [[place] 7.5-325 Tablet] 1 each PO PRN 10/01/18 Methotrexate [Mexate -] 22.5 mg WEEKLY 10/01/18 Methylphenidate HCl [Ritalin LA] 20 mg PO QID 10/01/18 Simvastatin [Zocor -] 40 mg PO DAILY 10/01/18 Testosterone Cypionate [Depo-Testosterone] 200 mg IM MONTHLY 10/01/18 Gabapentin [Neurontin -] 100 mg PO DAILY 09/29/19 Icosapent Ethyl [Vascepa] 2 gm PO BID 09/29/19 Lorazepam [Ativan] 2 mg PO HS 09/29/19 Multivitamin/Iron/Folic Acid [Centrum Adults Tablet] 1 each PO DAILY 09/29/19 Apixaban [Eliquis -] 5 mg PO BID #60 tablet 10/07/19 Aspirin Coated [Ecotrin -] 81 mg PO DAILY tablet.ec 10/07/19 Aspirin [ASA -] 81 mg PO DAILY tab.chew 10/07/19 Cholecalciferol (Vitamin D3) [Vitamin D3 -] 5,000 unit PO DAILY tab 10/07/19 Fenofibric Acid [Trilipix -] 135 mg PO DAILY cap 10/07/19 Folic Acid - 1 mg PO DAILY tablet 10/07/19 Lisinopril [Prinivil] 40 mg PO BID tablet 10/07/19 Nebivolol [Bystolic -] 20 mg PO BID tab 10/07/19 Pantoprazole Sodium [Protonix -] 40 mg PO BID #60 tablet.ec 10/07/19 Sodium Chloride Nasal [place] [[place] Nasal [place] -] 2 spray NS BID PRN 30 Days #1 spray 10/07/19 hydrALAZINE HCL [Apresoline -] 50 mg PO TID tablet 10/07/19 metFORMIN HCL [Glucophage -] 1,000 mg PO BID@0700,1630 tablet 10/07/19 oxyCODONE HCL [Roxicodone -] 5 mg PO Q6H PRN tablet 10/07/19 Review of Systems - Review of Systems Constitutional: reports: Loss of Appetite Eyes: reports: No Symptoms HENT: reports: No Symptoms Neck: reports: No Symptoms Cardiovascular: reports: No Symptoms Respiratory: reports: SOB, SOB on Exertion Gastrointestinal: reports: Indigestion Genitourinary: reports: No Symptoms Breasts: reports: No Symptoms Reported Musculoskeletal: reports: Muscle Pain, Muscle Weakness Integumentary: reports: No Symptoms Neurological: reports: Dizziness, Unsteady Gait, Weakness Endocrine: reports: No Symptoms Hematology/Lymphatic: reports: No Symptoms Psychiatric: reports: Anxiety Physical Examination Vital Signs: Vital Signs Temperature 97.4 F L 12/21/19 11:14 Pulse Rate 66 12/21/19 11:14 Respiratory Rate 18 12/21/19 11:14 Blood Pressure 124/100 12/21/19 11:14 O2 Sat by Pulse Oximetry (%) 99 12/21/19 11:14 Constitutional: Yes: Well Nourished, Anxious, Mild Distress Eyes: Yes: Conjunctiva Clear, EOM Intact HENT: Yes: Atraumatic, Normocephalic Neck: Yes: Supple, Trachea Midline Cardiovascular: Yes: Regular Rate and Rhythm Respiratory: Yes: Regular, CTA Bilaterally Gastrointestinal: Yes: Normal Bowel Sounds, Soft ...Rectal Exam: Yes: Deferred Renal/: Yes: WNL Breast(s): Yes: WNL Musculoskeletal: Yes: Muscle Weakness Extremities: Yes: WNL Edema: No Peripheral Pulses WNL: Yes Integumentary: Yes: WNL Neurological: Yes: Alert, Oriented ...Motor Strength: WNL Psychiatric: Yes: Alert, Oriented Labs: CBC, BMP 12/21/19 11:40 12/21/19 11:40 Imaging - Results Other: Report Reviewed (lab data reviewed) Problem List - Problems (1) Pneumonia Code(s): J18.9 - PNEUMONIA, UNSPECIFIED ORGANISM (2) ADHD (attention deficit hyperactivity disorder), combined type Code(s): F90.2 - ATTENTION-DEFICIT HYPERACTIVITY DISORDER, COMBINED TYPE (3) Acute respiratory failure Code(s): J96.00 - ACUTE RESPIRATORY FAILURE, UNSP W HYPOXIA OR HYPERCAPNIA (4) CAD S/P percutaneous coronary angioplasty Code(s): I25.10 - ATHSCL HEART DISEASE OF [place] CORONARY ARTERY W/O ANG PCTRS; Z98.61 - CORONARY ANGIOPLASTY STATUS (5) COVID-19 Code(s): U07.1 - COVID POSITIVE (6) COVID-19 virus infection Code(s): U07.1 - COVID POSITIVE (7) Diabetes mellitus Code(s): E11.9 - TYPE 2 DIABETES MELLITUS WITHOUT COMPLICATIONS (8) HTN (hypertension) Code(s): I10 - ESSENTIAL (PRIMARY) HYPERTENSION (9) Hyperlipidemia Code(s): E78.5 - HYPERLIPIDEMIA, UNSPECIFIED (10) Hypoxemia requiring supplemental oxygen Code(s): R09.02 - HYPOXEMIA; Z99.81 - DEPENDENCE ON SUPPLEMENTAL OXYGEN (11) Hypoxia Code(s): R09.02 - HYPOXEMIA (12) Obesity Code(s): E66.9 - OBESITY, UNSPECIFIED (13) Pneumonia involving left lung Code(s): J18.9 - PNEUMONIA, UNSPECIFIED ORGANISM Qualifiers: Pneumonia type: due to unspecified organism Lung location: unspecified part of lung Qualified Code(s): J18.9 - Pneumonia, unspecified organism (14) Psoriatic arthritis Code(s): L40.50 - ARTHROPATHIC PSORIASIS, UNSPECIFIED (15) SOB (shortness of breath) Code(s): R06.02 - SHORTNESS OF BREATH (16) Sedentary lifestyle Code(s): Z91.89 - OTH PERSONAL RISK FACTORS, NOT ELSEWHERE CLASSIFIED Assessment/Plan Assessment/plan: acute shortness of breath, ?acute pneumonia, acute loss of ap petite, acute dizziness, acute loose stools, acute fever, acute neutrophilic leukocytosis, acute generalized muscle weakness; IV Piperacillin and Vancomycin for infection, IV fluids for hydration, DVT/GI prophylaxis, a/c with Eliquis, lisinopril and apresoline for HTN, metformin for NIDDM, ritalin for ADHD, oxycodone for pain control, atorvastatin and fenofibrate for HLD, methotrexate for psoriatic arthritis, gabapentin for singultus, consult to ID, out of bed in chair as tolerated.
[2019-12-21] MEDS ORDERED: SODIUM CHLORIDE NASAL SPRAY 44 ML BOTTLE NS PRN (17:04)
[2019-12-21] MEDS ORDERED: ENOXAPARIN NA (PORCINE) 40 MG/0.4 ML DISP.SYRIN SQ SCH (17:15)
[2019-12-21] MEDS ORDERED: D5-1/2NS+20 MEQ KCL - 20 MEQ/1,000 ML INFUS.BAG IV SCH ×2 (17:30)
[2019-12-21] MEDS ORDERED: METHYLPHENIDATE HCL 5 MG TABLET PO SCH (18:00)
[2019-12-21] MEDS: METHYLPHENIDATE HCL 5 MG TABLET PO SCH (18:07)
[2019-12-21] MEDS: PANTOPRAZOLE 40 MG TABLET PO SCH (18:07)
[2019-12-21] MEDS: ATORVASTATIN CA 40 MG TABLET (FP) PO SCH (21:34)
[2019-12-21] MEDS: APIXABAN 5 MG TABLET PO SCH (21:34)
[2019-12-21] MEDS: LORazepam 1 MG TABLET PO SCH (21:34)
[2019-12-21] MEDS: hydrALAZINE HCL 50 MG TABLET (FP) PO SCH (21:35)
[2019-12-22] MEDS: ACETAMINOPHEN 325 MG TABLET (FP) PO PRN ×3 (02:33→19:57)
[2019-12-22] MEDS: METHYLPHENIDATE HCL 5 MG TABLET PO SCH ×3 (06:09→17:10)
[2019-12-22] MEDS: hydrALAZINE HCL 50 MG TABLET (FP) PO SCH ×3 (06:10→21:47)
[2019-12-22] MEDS: metFORMIN HCL 500 MG TABLET (FP) PO SCH ×2 (06:10→17:10)
--- NOTE | 2019-12-22 08:37 | PN ---
Progress Note, Physician Chief Complaint: Patient seen and examined at the bedside, acute episode of delirium last night, temp 99.4. History of Present Illness: This 69 yr old w/m with PMH of CAD with multiple stents, HTN, HLD, NIDDM, psoriatic arthritis, personal hx of Covid 19 infection admitted via ER with an acute shortness of breath, generalized muscle weakness, dizziness, fever, myalgia, and loss of appetite. - Current Medication List Current Medications: Active Medications Acetaminophen (Tylenol -) 325 mg PO Q6H PRN PRN Reason: PAIN LEVEL 6-10 Acetaminophen (Tylenol -) 650 mg PO Q6H PRN PRN Reason: PAIN LEVEL 6-10 Last Admin: 12/22/19 02:33 Dose: 650 mg Documented by: Apixaban (Eliquis -) 5 mg PO BID [facility] Last Admin: 12/21/19 21:34 Dose: 5 mg Documented by: Aspirin (Ecotrin -) 81 mg PO DAILY [facility] Atorvastatin Calcium (Lipitor -) 40 mg PO HS [facility] Last Admin: 12/21/19 21:34 Dose: 40 mg Documented by: Cholecalciferol (Vitamin D3 -) 5,000 unit PO DAILY [facility] Fenofibric Acid (Trilipix -) 135 mg PO DAILY [facility] Folic Acid (Folic Acid -) 1 mg PO DAILY [facility] Gabapentin (Neurontin -) 100 mg PO DAILY [facility] Hydralazine HCl (Apresoline -) 50 mg PO TID [facility] Last Admin: 12/22/19 06:10 Dose: 50 mg Documented by: Lisinopril (Prinivil) 40 mg PO DAILY [facility] Lorazepam (Ativan -) 2 mg PO HS [facility] Last Admin: 12/21/19 21:34 Dose: 2 mg Documented by: Metformin HCl (Glucophage -) 500 mg PO BID@0700,1630 [facility] Last Admin: 12/22/19 06:10 Dose: 500 mg Documented by: Methylphenidate HCl (Ritalin -) 20 mg PO TID@0600,1200,1800 [facility] Last Admin: 12/22/19 06:09 Dose: 20 mg Documented by: Multivitamins/Minerals (Theragran-M) 1 each PO DAILY [facility] Oxycodone HCl (Roxicodone -) 5 mg PO Q6H PRN PRN Reason: PAIN SCALE 6-10 Pantoprazole Sodium (Protonix -) 40 mg PO DAILY [facility] Last Admin: 12/21/19 18:07 Dose: 40 mg Documented by: Sodium Chloride ([place] Nasal [place] -) 2 spray NS BID PRN PRN Reason: NASAL CONGESTION - Objective Vital Signs: Vital Signs Temperature 99.4 F 12/22/19 05:16 Pulse Rate 75 12/22/19 05:16 Respiratory Rate 20 12/22/19 05:16 Blood Pressure 140/74 12/22/19 05:16 O2 Sat by Pulse Oximetry (%) 95 12/22/19 05:16 Constitutional: Yes: Well Nourished, No Distress, Calm Eyes: Yes: Conjunctiva Clear, EOM Intact HENT: Yes: Atraumatic, Normocephalic Neck: Yes: Supple, Trachea Midline Cardiovascular: Yes: Regular Rate and Rhythm Respiratory: Yes: Regular, CTA Bilaterally Gastrointestinal: Yes: Normal Bowel Sounds, Soft ...Rectal Exam: Yes: Deferred Genitourinary: Yes: WNL Breast(s): Yes: WNL Musculoskeletal: Yes: WNL Extremities: Yes: WNL Edema: No Peripheral Pulses WNL: Yes Integumentary: Yes: WNL Neurological: Yes: WNL ...Motor Strength: WNL Psychiatric: Yes: WNL Labs: CBC, BMP 12/21/19 11:40 12/21/19 11:40 - ....Imaging Other: Report Reviewed (lab data reviewed) Problem List - Problems (1) Pneumonia Code(s): J18.9 - PNEUMONIA, UNSPECIFIED ORGANISM (2) ADHD (attention deficit hyperactivity disorder), combined type Code(s): F90.2 - ATTENTION-DEFICIT HYPERACTIVITY DISORDER, COMBINED TYPE (3) Acute respiratory failure Code(s): J96.00 - ACUTE RESPIRATORY FAILURE, UNSP W HYPOXIA OR HYPERCAPNIA (4) CAD S/P percutaneous coronary angioplasty Code(s): I25.10 - ATHSCL HEART DISEASE OF [place] CORONARY ARTERY W/O ANG PCTRS; Z98.61 - CORONARY ANGIOPLASTY STATUS (5) COVID-19 Code(s): U07.1 - COVID POSITIVE (6) COVID-19 virus infection Code(s): U07.1 - COVID POSITIVE (7) Diabetes mellitus Code(s): E11.9 - TYPE 2 DIABETES MELLITUS WITHOUT COMPLICATIONS (8) HTN (hypertension) Code(s): I10 - ESSENTIAL (PRIMARY) HYPERTENSION (9) Hyperlipidemia Code(s): E78.5 - HYPERLIPIDEMIA, UNSPECIFIED (10) Hypoxemia requiring supplemental oxygen Code(s): R09.02 - HYPOXEMIA; Z99.81 - DEPENDENCE ON SUPPLEMENTAL OXYGEN (11) Hypoxia Code(s): R09.02 - HYPOXEMIA (12) Obesity Code(s): E66.9 - OBESITY, UNSPECIFIED (13) Pneumonia involving left lung Code(s): J18.9 - PNEUMONIA, UNSPECIFIED ORGANISM Qualifiers: Pneumonia type: due to unspecified organism Lung location: unspecified part of lung Qualified Code(s): J18.9 - Pneumonia, unspecified organism (14) Psoriatic arthritis Code(s): L40.50 - ARTHROPATHIC PSORIASIS, UNSPECIFIED (15) SOB (shortness of breath) Code(s): R06.02 - SHORTNESS OF BREATH (16) Sedentary lifestyle Code(s): Z91.89 - OTH PERSONAL RISK FACTORS, NOT ELSEWHERE CLASSIFIED Assessment/Plan Assessment/plan: acute shortness of breath, fever, dizziness, myalgia, generalized muscle weakness, loss of appetite, loose stools, HTN, NIDDM, HLD, CAD with multiple stents, psoriatic arthritis, personal hx of Covid 19 pneumonitis; IV Piperacillin and Vancomycin, consult to ID pending, DVT/GI prophylaxis, atorvastatin and fenofibrate for HLD, apresoline and lisinopril for HTN, oxycodone prn for pain, ritalin and lorazepam for anxiety, metformin for NIDDM, gabapentin for singultus, out of bed in chair as tolerated.
[2019-12-22 08:53] LABS: BASO % 0.2 % (0-2.0); EOS % 0.1 % (0-4.5); HEMATOCRIT 40.7 % (35.4-49); HEMOGLOBIN 13.5 GM/dL (11.7-16.9); LYMPH % 5.9 % (8-40); MCH 30.1 pg (25.7-33.7); MCHC 33.1 g/dl (32.0-35.9); MEAN CELL VOLUME 90.8 fl (80-96); MONO % 2.6 % (3.8-10.2); NEUT % 91.2 % (42.8-82.8); PLATELET COUNT 183 K/MM3 (134-434); RBC 4.48 M/mm3 (4.00-5.60); RDW 16.7 % (11.9-15.9); WHITE BLOOD COUNT 12.6 K/mm3 (4.0-10.0)
[2019-12-22] MEDS ORDERED: PT OWN MED DRAWER 7, Y5N ONE ×2 (08:54→12:30)
[2019-12-22] MEDS: oxyCODONE HCL 5 MG TABLET PO PRN ×2 (08:58→19:58)
[2019-12-22] MEDS: MULTIVITAMINS THER W-MINERALS COMBO TABLET (FP) PO SCH (08:59)
[2019-12-22] MEDS: APIXABAN 5 MG TABLET PO SCH ×2 (08:59→21:46)
[2019-12-22] MEDS: PANTOPRAZOLE 40 MG TABLET PO SCH (08:59)
[2019-12-22] MEDS: GABAPENTIN 100 MG CAPSULE PO SCH (08:59)
[2019-12-22] MEDS: LISINOPRIL 20 MG TABLET (FP) PO SCH (08:59)
[2019-12-22] MEDS: FOLIC ACID 1 MG TABLET (FP) PO SCH (08:59)
[2019-12-22] MEDS: CHOLECALCIFEROL (VIT D3) 1,000 UNIT (25 MCG) TABLET PO SCH (08:59)
[2019-12-22] MEDS: ASPIRIN COATED 81 MG TABLET.EC PO SCH (08:59)
[2019-12-22 09:27] LABS: ALBUMIN 3.4 g/dl (3.4-5.0); BILIRUBIN,TOTAL 1.1 mg/dL (0.2-1); BLOOD UREA NITROGEN 13.3 mg/dL (7-18); CALCIUM 8.9 mg/dL (8.5-10.1); CREATININE 1.4 mg/dL (0.55-1.3); POTASSIUM 4.1 mmol/L (3.5-5.1); TOT PROT 6.6 g/dl (6.4-8.2)
--- NOTE | 2019-12-22 09:37 | EKG ---
Test Reason : Blood Pressure : / mmHG Vent. Rate : 067 BPM Atrial Rate : 067 BPM P-R Int : 194 ms QRS Dur : 078 ms QT Int : 374 ms P-R-T Axes : 054 039 033 degrees QTc Int : 395 ms SINUS RHYTHM WITH PREMATURE SUPRAVENTRICULAR COMPLEXES OTHERWISE NORMAL ECG WHEN COMPARED WITH ECG OF 06-OCT-2019 10:25, PREMATURE SUPRAVENTRICULAR COMPLEXES ARE NOW PRESENT Confirmed by Rolando Simpson ([id number]) on 12/22/2019 9:37:37 AM Referred By: Confirmed By:Rolando Simpson
[2019-12-22 12:06] LABS: ANISOCYTOSIS 1+; MACROCYTOSIS 0; OVALOCYTE 1+; PLATELET ESTIMATE NORMAL; TOXIC GRANULATION 1+
[2019-12-22] MEDS: FENOFIBRIC ACID 135 MG CAP PO SCH (12:31)
--- NOTE | 2019-12-22 12:54 | PN ---
Progress Note (short form) - Note Progress Note: ID CONSULT DICTATED PROBABLE POST-VIRAL BACTERIAL PNEUMONIA S/P COVID-19 PSORIATIC ARTHRITIS ON MTX DIABETES MELLITUS AWAIT C/S [facility] [employer] HCAP WITH ZOSYN/VANCOMYCIN
--- NOTE | 2019-12-22 13:10 | CON.CARD ---
Consult Consult Specialty:: Cardiology - History of Present Illness History of Present Illness: 69-year-old male history of prediabetes on metformin Psoriatic arthritis on methotrexate, CAD with multiple cardiac stents ,hypertension, hyperlipidemia who was recently COVID positive in september. did test negative since then. is here today with recurrent symptoms of shortness of breath fever myalgia decreased appetite. Patient denies any urinary symptoms, denies any abdominal pain. States he did check his pulse ox at home it was only 94% he had a fever of 101 did take Tylenol early this a.m. no nausea no vomiting just decreased appetite overall. he feels short of breath and it is worse with lying flat. no leg swelling patient is currently on Eliquis has not had any DVTs or PEs in his course no nausea no vomiting no other current complaints PMH Major events cardiac cath 04/23/17 Dr. Nayak [facility] PCI of RPDA LOUIE Cardiac Cath. 04/04/18 Dr. Nayak [facility] Patient refused CABG. PCI LOUIE PRCA Left Main 30% LAD proximal stent patent, mid 40%, distal 50% tapers to small caliber vessel D1 80% medium size vessel D2 80% medium size vessel LCx mid stent widely patent Ramus stent widely patent with 90% stenosis proximal to patent stent- ostial lesion OM1 stent widely patent Cardiac Cath: 06/27/18 at [facility] [address] Deluna PCI LOUIE Ramus Ongoing medical problems 3 vessel disease - refused CABG September 09, 2015 Dr. Deluna Anxiety LOUIE of pLAD November 18, 2015 Dr. Deluna Hyperlipidemia Hypertension PCI LOUIE of mRCA September 10, 2015 Dr. Deluna PCI of Ramus and OM1 September 17, 2015 Dr. Deluna Pre-diabetes treated with metformin in the past Sleep apnea Basal cell CA nose.2016 - resection 2017 - History Source History Provided By: Patient, Medical Record - Past Medical History TITLE CLERK: No: Alzheimer's, CVA, Dementia, Migraine, Multiple Sclerosis, Peripheral Neuropathy, Parkinson's, Seizure, Syncope, TIA, Vertigo, Other Cardio/Vascular: Yes: CAD, HTN, Hyperlipdemia Pulmonary: Yes: Pneumonia, Other (Covid 19 pneumonitis) Gastrointestinal: Yes: GERD Hepatobiliary: No: Cirrhosis, Cholelithiasis, Cholecystitis, Choledocholithiasis, Hepatitis A, Hepatitis B, Hepatitis C, Other Renal/: Yes: BPH Infectious Disease: Yes: Other (Covid 19 pneumonitis) Psych: Yes: Anxiety Musculoskeletal: Yes: Chronic low back pain Rheumatology: Yes: Other (Psoriatic arthritis - on methotrexate 22.5mg po once weekly) ENT: No: Allergic Rhinitis, Sinusitis, Other Endocrine: Yes: Diabetes Mellitus Dermatology: No: Basal Cell, Cellulitis, Eczema, Melanoma, Psoriasis, Squamous Cell, Other - Past Surgical History Past Surgical History: Yes: Stent - Alcohol/Substance Use Hx Alcohol Use: No History of Substance Use: reports: None - Smoking History Smoking history: Never smoked Have you smoked in the past 12 months: No Home Medications - Allergies Allergies/Adverse Reactions: Allergies Allergy/AdvReac Type Severity Reaction Status Date / Time Sulfa (Sulfonamide Allergy Verified 12/21/19 11:14 Antibiotics) - Home Medications Home Medications: Ambulatory Orders Fenofibrate Nanocrystallized [Fenofibrate] 145 mg PO DAILY 10/01/18 Hydrocodone/Acetaminophen [[place] 7.5-325 Tablet] 1 each PO PRN 10/01/18 Methotrexate [Mexate -] 22.5 mg WEEKLY 10/01/18 Methylphenidate HCl [Ritalin LA] 20 mg PO QID 10/01/18 Simvastatin [Zocor -] 40 mg PO DAILY 10/01/18 Testosterone Cypionate [Depo-Testosterone] 200 mg IM MONTHLY 10/01/18 Gabapentin [Neurontin -] 100 mg PO DAILY 09/29/19 Icosapent Ethyl [Vascepa] 2 gm PO BID 09/29/19 Lorazepam [Ativan] 2 mg PO HS 09/29/19 Multivitamin/Iron/Folic Acid [Centrum Adults Tablet] 1 each PO DAILY 09/29/19 Apixaban [Eliquis -] 5 mg PO BID #60 tablet 10/07/19 Aspirin Coated [Ecotrin -] 81 mg PO DAILY tablet.ec 10/07/19 Aspirin [ASA -] 81 mg PO DAILY tab.chew 10/07/19 Cholecalciferol (Vitamin D3) [Vitamin D3 -] 5,000 unit PO DAILY tab 10/07/19 Fenofibric Acid [Trilipix -] 135 mg PO DAILY cap 10/07/19 Folic Acid - 1 mg PO DAILY tablet 10/07/19 Lisinopril [Prinivil] 40 mg PO BID tablet 10/07/19 Nebivolol [Bystolic -] 20 mg PO BID tab 10/07/19 Pantoprazole Sodium [Protonix -] 40 mg PO BID #60 tablet.ec 10/07/19 Sodium Chloride Nasal [place] [[place] Nasal [place] -] 2 spray NS BID PRN 30 Days #1 spray 10/07/19 hydrALAZINE HCL [Apresoline -] 50 mg PO TID tablet 10/07/19 metFORMIN HCL [Glucophage -] 1,000 mg PO BID@0700,1630 tablet 10/07/19 oxyCODONE HCL [Roxicodone -] 5 mg PO Q6H PRN tablet 10/07/19 Review of Systems - Review of Systems Constitutional: reports: No Symptoms, Fever Eyes: reports: No Symptoms HENT: reports: No Symptoms Neck: reports: No Symptoms Cardiovascular: reports: No Symptoms Respiratory: reports: SOB, SOB on Exertion Gastrointestinal: reports: No Symptoms Genitourinary: reports: No Symptoms Breasts: reports: No Symptoms Reported Musculoskeletal: reports: No Symptoms Integumentary: reports: No Symptoms Neurological: reports: No Symptoms Endocrine: reports: No Symptoms Hematology/Lymphatic: reports: No Symptoms Psychiatric: reports: No Symptoms Vital Signs: Vital Signs Temperature 100.1 F H 12/22/19 10:00 Pulse Rate 84 12/22/19 10:00 Respiratory Rate 12/22/19 10:00 Blood Pressure 141/74 12/22/19 10:00 O2 Sat by Pulse Oximetry (%) 96 12/22/19 10:00 Constitutional: Yes: Well Nourished, No Distress, Calm Eyes: Yes: WNL, Conjunctiva Clear, EOM Intact HENT: Yes: WNL, Atraumatic, Normocephalic Neck: Yes: WNL, Supple, Trachea Midline Respiratory: Yes: WNL, Regular, Diminished, Rhonchi Gastrointestinal: Yes: WNL, Normal Bowel Sounds Renal/: Yes: WNL Cardiovascular: Yes: WNL, Regular Rate and Rhythm Musculoskeletal: Yes: WNL Extremities: Yes: WNL Integumentary: Yes: WNL Neurological: Yes: WNL, Alert, Oriented ...Motor Strength: WNL Psychiatric: Yes: WNL, Alert, Oriented - Other Data Labs, Other Data: CBC, BMP 12/22/19 08:25 12/22/19 08:25 Troponin, BNP 12/21/19 11:40 Troponin I < 0.02 B-Natriuretic Peptide 352.6 H Troponin, BNP 12/21/19 11:40 Troponin I < 0.02 B-Natriuretic Peptide 352.6 H Imaging - Results Chest X-ray: Image Reviewed (MARCUS PNA) Cat Scan: Image Reviewed (MARCUS lobar pna) EKG: Image Reviewed (sr rep) Problem List - Problems (1) Pneumonia Code(s): J18.9 - PNEUMONIA, UNSPECIFIED ORGANISM (2) ADHD (attention deficit hyperactivity disorder), combined type Code(s): F90.2 - ATTENTION-DEFICIT HYPERACTIVITY DISORDER, COMBINED TYPE (3) Acute respiratory failure Code(s): J96.00 - ACUTE RESPIRATORY FAILURE, UNSP W HYPOXIA OR HYPERCAPNIA (4) CAD S/P percutaneous coronary angioplasty Code(s): I25.10 - ATHSCL HEART DISEASE OF [place] CORONARY ARTERY W/O ANG PCTRS; Z98.61 - CORONARY ANGIOPLASTY STATUS (5) COVID-19 Code(s): U07.1 - COVID POSITIVE (6) COVID-19 virus infection Code(s): U07.1 - COVID POSITIVE (7) D-dimer, elevated Code(s): R79.89 - OTHER SPECIFIED ABNORMAL FINDINGS OF BLOOD CHEMISTRY (8) Diabetes mellitus Code(s): E11.9 - TYPE 2 DIABETES MELLITUS WITHOUT COMPLICATIONS (9) HTN (hypertension) Code(s): I10 - ESSENTIAL (PRIMARY) HYPERTENSION (10) Hyperlipidemia Code(s): E78.5 - HYPERLIPIDEMIA, UNSPECIFIED (11) Hypoxemia requiring supplemental oxygen Code(s): R09.02 - HYPOXEMIA; Z99.81 - DEPENDENCE ON SUPPLEMENTAL OXYGEN (12) Hypoxia Code(s): R09.02 - HYPOXEMIA (13) Obesity Code(s): E66.9 - OBESITY, UNSPECIFIED (14) Pneumonia involving left lung Code(s): J18.9 - PNEUMONIA, UNSPECIFIED ORGANISM Qualifiers: Pneumonia type: due to unspecified organism Lung location: unspecified part of lung Qualified Code(s): J18.9 - Pneumonia, unspecified organism (15) Psoriatic arthritis Code(s): L40.50 - ARTHROPATHIC PSORIASIS, UNSPECIFIED (16) SOB (shortness of breath) Code(s): R06.02 - SHORTNESS OF BREATH (17) Sedentary lifestyle Code(s): Z91.89 - OTH PERSONAL RISK FACTORS, NOT ELSEWHERE CLASSIFIED Assessment/Plan 69-year-old male history of prediabetes on metformin Psoriatic arthritis on methotrexate, CAD with multiple cardiac stents as per PMH ,hypertension, hyperlipidemia who was recently COVID positive in september. did test negative since then admitted with post COVID MARCUS PNA. Plan; ABX as per ID Consider d/c Eliquis if COVID 19 negative - this was started during acute COVID infection in September. ASHD stable cont ASA will f/u
[2019-12-22] MEDS: VANCOMYCIN 1 GRAM (PRE-DOCKED) 1,000 MG/250 ML BAG IVPB SCH (13:39)
[2019-12-22] MEDS ORDERED: DEXTROSE 5%-WATER - 50 ML IVPB ONE (17:08)
[2019-12-22] MEDS ORDERED: PIPERACILLIN/TAZOBACTAM 3.375 GM VIAL IVPB ONE (17:08)
[2019-12-22] MEDS: PIPERACILLIN/TAZOB 3.375 GM 3.375 GM in DEXTROSE 5%-WATER - 50 ML IVPB SCH (17:10)
--- NOTE | 2019-12-22 17:56 | CONS ---
DATE OF CONSULTATION: DATE OF DICTATION: 12/22/2019 INFECTIOUS DISEASE CONSULTATION HISTORY OF PRESENT ILLNESS: The patient is a 69-year-old male who is evaluated for pneumonia. The patient was hospitalized at [facility] from September 28 through October 06 after being diagnosed with COVID-19. He was treated initially with hydroxychloroquine. He did not receive convalescent plasma nor Remdesivir, as he remained clinically stable during his hospitalization. His O2 saturations progressively improved, and his clinical status markedly improved. He was discharged home. The patient is a retired member of technical staff. He lives in a facility with other retired clergy. 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 He reports he did well post hospital discharge up until Sunday, December 20, 2019. He began to develop increasing shortness of breath, arthralgias, and myalgias. He was also noted to have hypoxemia with an O2 saturation of 94%. He presented to the hospital where he was admitted. A chest x-ray was performed that showed a left-sided infiltrate. A CAT scan also shows a condensed left lung infiltrate with air bronchograms. Official reading is pending. His clinical course was complicated by episode of confusion and agitation. A CAT scan of his head was performed and was negative for acute infarct or bleed. When comparing his chest x-ray and CAT scans from this admission, the left sided infiltrate was not present on studies dating back to October 28. Patient reports occasional cough which is dry in nature. He denies any sputum production or hemoptysis. No complaints of chest pain. He does report having fever 101 at home. He has been in contact with ill members of the nursing facility. He is a nonsmoker, nondrinker. The patient has a history of psoriatic arthritis for which he takes methotrexate. He does not take anti-TNF agents. PAST MEDICAL HISTORY: Positive for psoriatic arthritis, diabetes mellitus, coronary artery disease, hypertension, hyperlipidemia, diabetes mellitus, obstructive sleep apnea. ALLERGIES: SULFA. MEDICATION: Include vancomycin, Zosyn, Eliquis, Lipitor, , hydralazine, lisinopril, Neurontin, Protonix, metformin. SOCIAL HISTORY: As per HPI. LABORATORY DATA: White count on admission 14.7, presently 12.6, hematocrit 40.7, platelet count 183, creatinine 1.4. Urine leukocyte esterase negative. COVID-19 pending. PHYSICAL EXAMINATION: General: On physical examination he is awake, he is obese, seated in bed, in no acute respiratory distress. Vital signs: Temperature 100.1, blood pressure 141/74, pulse 82 regular, respirations 20 per minute. HEENT: Sclerae anicteric. Cardiovascular: Heart sounds S1, S2. Lungs: Scattered rhonchi. Abdomen: Obese. Soft, nontender. Extremities: Negative for edema. IMPRESSION: 1. Probable post viral bacterial pneumonia. 2. Status post COVID-19. 3. Psoriatic arthritis on methotrexate. 4. Diabetes mellitus. 5. Azotemia. Await cultures. Obtain sputum culture, urine legionella antigen. Empiric antibiotic coverage for healthcare acquired pulmonary pathogens with vancomycin and Zosyn pending workup. PATRICIA GARCIA M.D. [id number]
[2019-12-22] MEDS: LORazepam 1 MG TABLET PO SCH (21:46)
[2019-12-22] MEDS: ATORVASTATIN CA 40 MG TABLET (FP) PO SCH (21:46)
[2019-12-23] MEDS: VANCOMYCIN 1 GRAM (PRE-DOCKED) 1,000 MG/250 ML BAG IVPB SCH ×2 (00:14→13:07)
[2019-12-23] MEDS ORDERED: PIPERACILLIN/TAZOBACTAM 3.375 GM VIAL IVPB ONE ×2 (00:55→08:57)
[2019-12-23] MEDS ORDERED: DEXTROSE 5%-WATER - 50 ML IVPB ONE ×2 (00:55→08:57)
[2019-12-23] MEDS: PIPERACILLIN/TAZOB 3.375 GM 3.375 GM in DEXTROSE 5%-WATER - 50 ML IVPB SCH ×2 (01:44→09:08)
[2019-12-23] MEDS: ACETAMINOPHEN 325 MG TABLET (FP) PO PRN ×3 (04:20→14:52)
[2019-12-23] MEDS: METHYLPHENIDATE HCL 5 MG TABLET PO SCH ×3 (06:04→16:26)
[2019-12-23] MEDS: hydrALAZINE HCL 50 MG TABLET (FP) PO SCH ×3 (06:04→21:23)
[2019-12-23] MEDS: metFORMIN HCL 500 MG TABLET (FP) PO SCH ×2 (06:06→16:26)
[2019-12-23 08:13] LABS: BASO % 0.2 % (0-2.0); HEMATOCRIT 40.4 % (35.4-49); HEMOGLOBIN 13.3 GM/dL (11.7-16.9); LYMPH % 4.7 % (8-40); MCH 29.9 pg (25.7-33.7); MCHC 32.8 g/dl (32.0-35.9); MEAN CELL VOLUME 91.2 fl (80-96); MEAN PLT VOLUME 7.9 fl (7.5-11.1); MONO % 3.9 % (3.8-10.2); NEUT % 91.2 % (42.8-82.8); PLATELET COUNT 173 K/MM3 (134-434); RBC 4.43 M/mm3 (4.00-5.60); RDW 16.9 % (11.9-15.9); WHITE BLOOD COUNT 11.6 K/mm3 (4.0-10.0)
[2019-12-23 08:26] LABS: ALBUMIN 3.2 g/dl (3.4-5.0); BILIRUBIN,TOTAL 0.9 mg/dL (0.2-1); BLOOD UREA NITROGEN 14.6 mg/dL (7-18); CALCIUM 8.7 mg/dL (8.5-10.1); CREATININE 1.5 mg/dL (0.55-1.3); POTASSIUM 3.9 mmol/L (3.5-5.1); TOT PROT 6.6 g/dl (6.4-8.2)
[2019-12-23] MEDS ORDERED: PT OWN MED DRAWER 7, Y5N ONE ×2 (08:58→21:08)
[2019-12-23] MEDS: PANTOPRAZOLE 40 MG TABLET PO SCH (09:06)
[2019-12-23] MEDS: APIXABAN 5 MG TABLET PO SCH (09:06)
[2019-12-23] MEDS: GABAPENTIN 100 MG CAPSULE PO SCH (09:06)
[2019-12-23] MEDS: FOLIC ACID 1 MG TABLET (FP) PO SCH (09:06)
[2019-12-23] MEDS: MULTIVITAMINS THER W-MINERALS COMBO TABLET (FP) PO SCH (09:06)
[2019-12-23] MEDS: CHOLECALCIFEROL (VIT D3) 1,000 UNIT (25 MCG) TABLET PO SCH (09:07)
[2019-12-23] MEDS: LISINOPRIL 20 MG TABLET (FP) PO SCH (09:07)
[2019-12-23] MEDS: FENOFIBRIC ACID 135 MG CAP PO SCH (09:08)
[2019-12-23] MEDS: ASPIRIN COATED 81 MG TABLET.EC PO SCH (09:08)
--- NOTE | 2019-12-23 09:32 | PN ---
Progress Note, Physician Chief Complaint: Patient seen and examined at the bedside, reports not sleeping entire night, feels edgy this morning, febrile. History of Present Illness: This 69 yr old w/m with PMH of CAD with multiple stents, HTN, HLD, NIDDM, psoriatic arthritis, hx of Covid 19 pneumonitis admitted via ER with an acute shortness of breath, fever and an acute left upper lobe pneumonia. - Current Medication List Current Medications: Active Medications Acetaminophen (Tylenol -) 325 mg PO Q6H PRN PRN Reason: PAIN LEVEL 6-10 Last Admin: 12/22/19 19:57 Dose: 325 mg Documented by: Acetaminophen (Tylenol -) 650 mg PO Q6H PRN PRN Reason: PAIN LEVEL 6-10 Last Admin: 12/23/19 09:07 Dose: 650 mg Documented by: Apixaban (Eliquis -) 5 mg PO BID [facility] Last Admin: 12/23/19 09:06 Dose: 5 mg Documented by: Aspirin (Ecotrin -) 81 mg PO DAILY [facility] Last Admin: 12/23/19 09:08 Dose: 81 mg Documented by: Atorvastatin Calcium (Lipitor -) 40 mg PO HS [facility] Last Admin: 12/22/19 21:46 Dose: 40 mg Documented by: Cholecalciferol (Vitamin D3 -) 5,000 unit PO DAILY [facility] Last Admin: 12/23/19 09:07 Dose: 5,000 unit Documented by: Fenofibric Acid (Trilipix -) 135 mg PO DAILY [facility] Last Admin: 12/23/19 09:08 Dose: 135 mg Documented by: Folic Acid (Folic Acid -) 1 mg PO DAILY [facility] Last Admin: 12/23/19 09:06 Dose: 1 mg Documented by: Gabapentin (Neurontin -) 100 mg PO DAILY [facility] Last Admin: 12/23/19 09:06 Dose: 100 mg Documented by: Hydralazine HCl (Apresoline -) 50 mg PO TID [facility] Last Admin: 12/23/19 06:04 Dose: 50 mg Documented by: Vancomycin HCl (Vancomycin (Pre-Docked)) 1,000 mg in 250 mls @ 166.667 mls/hr IVPB Q12H [facility]; Protocol Last Admin: 12/23/19 00:14 Dose: 166.667 mls/hr Documented by: Piperacillin Sod/Tazobactam (Sod 3.375 gm/ Dextrose) 50 mls @ 100 mls/hr IVPB Q8H-IV [facility]; Protocol Last Admin: 12/23/19 09:08 Dose: 100 mls/hr Documented by: Lisinopril (Prinivil) 40 mg PO DAILY [facility] Last Admin: 12/23/19 09:07 Dose: 40 mg Documented by: Lorazepam (Ativan -) 2 mg PO [facility] Last Admin: 12/22/19 21:46 Dose: 2 mg Documented by: Metformin HCl (Glucophage -) 500 mg PO BID@0700,1630 [facility] Last Admin: 12/23/19 06:06 Dose: 500 mg Documented by: Methylphenidate HCl (Ritalin -) 20 mg PO TID@0600,1200,1800 [facility] Last Admin: 12/23/19 06:04 Dose: 20 mg Documented by: Multivitamins/Minerals (Theragran-M) 1 each PO DAILY [facility] Last Admin: 12/23/19 09:06 Dose: 1 each Documented by: Oxycodone HCl (Roxicodone -) 5 mg PO Q6H PRN PRN Reason: PAIN SCALE 6-10 Last Admin: 12/22/19 19:58 Dose: 5 mg Documented by: Pantoprazole Sodium (Protonix -) 40 mg PO DAILY [facility] Last Admin: 12/23/19 09:06 Dose: 40 mg Documented by: Sodium Chloride ([place] Nasal [place] -) 2 spray NS BID PRN PRN Reason: NASAL CONGESTION Temazepam (Restoril -) 30 mg PO [facility] - Objective Vital Signs: Vital Signs Temperature 100.6 F H 12/23/19 09:00 Pulse Rate 93 H 12/23/19 09:00 Respiratory Rate 19 12/23/19 09:00 Blood Pressure 155/87 12/23/19 09:00 O2 Sat by Pulse Oximetry (%) 96 12/23/19 09:00 Constitutional: Yes: Well Nourished, Anxious, Mild Distress Eyes: Yes: Conjunctiva Clear, EOM Intact HENT: Yes: Atraumatic, Normocephalic Neck: Yes: Supple, Trachea Midline Cardiovascular: Yes: Regular Rate and Rhythm Respiratory: Yes: Regular, CTA Bilaterally Gastrointestinal: Yes: Normal Bowel Sounds, Soft ...Rectal Exam: Yes: Deferred Genitourinary: Yes: WNL Breast(s): Yes: WNL Musculoskeletal: Yes: Muscle Weakness Extremities: Yes: WNL Edema: No Peripheral Pulses WNL: Yes Integumentary: Yes: WNL Neurological: Yes: WNL ...Motor Strength: WNL Psychiatric: Yes: Alert, Oriented, Other (apprehensive) Labs: CBC, BMP 12/23/19 07:30 12/23/19 07:30 - ....Imaging Other: Report Reviewed (lab data reviewed) Problem List - Problems (1) Pneumonia Code(s): J18.9 - PNEUMONIA, UNSPECIFIED ORGANISM (2) ADHD (attention deficit hyperactivity disorder), combined type Code(s): F90.2 - ATTENTION-DEFICIT HYPERACTIVITY DISORDER, COMBINED TYPE (3) Acute respiratory failure Code(s): J96.00 - ACUTE RESPIRATORY FAILURE, UNSP W HYPOXIA OR HYPERCAPNIA (4) CAD S/P percutaneous coronary angioplasty Code(s): I25.10 - ATHSCL HEART DISEASE OF [place] CORONARY ARTERY W/O ANG PCTRS; Z98.61 - CORONARY ANGIOPLASTY STATUS (5) COVID-19 Code(s): U07.1 - COVID POSITIVE (6) COVID-19 virus infection Code(s): U07.1 - COVID POSITIVE (7) Diabetes mellitus Code(s): E11.9 - TYPE 2 DIABETES MELLITUS WITHOUT COMPLICATIONS (8) HTN (hypertension) Code(s): I10 - ESSENTIAL (PRIMARY) HYPERTENSION (9) Hyperlipidemia Code(s): E78.5 - HYPERLIPIDEMIA, UNSPECIFIED (10) Hypoxemia requiring supplemental oxygen Code(s): R09.02 - HYPOXEMIA; Z99.81 - DEPENDENCE ON SUPPLEMENTAL OXYGEN (11) Hypoxia Code(s): R09.02 - HYPOXEMIA (12) Obesity Code(s): E66.9 - OBESITY, UNSPECIFIED (13) Pneumonia involving left lung Code(s): J18.9 - PNEUMONIA, UNSPECIFIED ORGANISM Qualifiers: Pneumonia type: due to unspecified organism Lung location: unspecified part of lung Qualified Code(s): J18.9 - Pneumonia, unspecified organism (14) Psoriatic arthritis Code(s): L40.50 - ARTHROPATHIC PSORIASIS, UNSPECIFIED (15) SOB (shortness of breath) Code(s): R06.02 - SHORTNESS OF BREATH (16) Sedentary lifestyle Code(s): Z91.89 - OTH PERSONAL RISK FACTORS, NOT ELSEWHERE CLASSIFIED Assessment/Plan Assessment/plan: acute shortness of breath, fever, acute left upper lobe pneumonia, mild mediastinal lymphadenopathy, acute hyponatremia, CAD with multiple stents, HTN, HLD, NIDDM, psoriatic arthritis, hx of Covid 19 pneumonitis; IV fluids for hyponatremia, IV Piperacillin and Vancomycin for an acute left upper lobe pneumonia, DVT/GI prophylaxis, atorvastatin and fenofibrate for HLD, hydralazine and lisinopril for HTN, Temazepam and Lorazepam for insomnia, metformin for NIDDM, oxycodone prn for pain, out of bed in chair as tolerated.
[2019-12-23] MEDS ORDERED: ENOXAPARIN NA (PORCINE) 40 MG/0.4 ML DISP.SYRIN SQ SCH (10:00)
[2019-12-23 10:45] LABS: ANISOCYTOSIS 0; MACROCYTOSIS 0; PLATELET ESTIMATE NORMAL
--- NOTE | 2019-12-23 12:15 | PN ---
Progress Note, Physician Chief Complaint: Pt alert; feels "a little stronger and less fatigued"; SOB on mild exertion, but able to ambulate slowly in yu. 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 Admitted with recurrent symptoms of shortness of breath, fever, myalgia, decreased appetite. Patient denies any urinary symptoms, denies any abdominal pain. States he did check his pulse ox at home it was only 94% he had a fever of 101.no nausea no vomiting; decreased appetite overall. He feels short of breath;it is worse lying flat. no leg swelling patient. Currently on Eliquis; has not had any DVTs or PEs in his course no nausea no vomiting. - Current Medication List Current Medications: Active Medications Acetaminophen (Tylenol -) 650 mg PO Q6H PRN PRN Reason: PAIN LEVEL 6-10 Last Admin: 12/23/19 09:07 Dose: 650 mg Documented by: Aspirin (Ecotrin -) 81 mg PO DAILY [facility] Last Admin: 12/23/19 09:08 Dose: 81 mg Documented by: Atorvastatin Calcium (Lipitor -) 40 mg PO HS [facility] Last Admin: 12/22/19 21:46 Dose: 40 mg Documented by: Cholecalciferol (Vitamin D3 -) 5,000 unit PO DAILY [facility] Last Admin: 12/23/19 09:07 Dose: 5,000 unit Documented by: Enoxaparin Sodium (Lovenox -) 40 mg SQ DAILY [facility] Fenofibric Acid (Trilipix -) 135 mg PO DAILY [facility] Last Admin: 12/23/19 09:08 Dose: 135 mg Documented by: Folic Acid (Folic Acid -) 1 mg PO DAILY [facility] Last Admin: 12/23/19 09:06 Dose: 1 mg Documented by: Gabapentin (Neurontin -) 100 mg PO DAILY [facility] Last Admin: 12/23/19 09:06 Dose: 100 mg Documented by: Hydralazine HCl (Apresoline -) 50 mg PO TID [facility] Last Admin: 12/23/19 06:04 Dose: 50 mg Documented by: Vancomycin HCl (Vancomycin (Pre-Docked)) 1,000 mg in 250 mls @ 166.667 mls/hr IVPB Q12H [facility]; Protocol Last Admin: 12/23/19 00:14 Dose: 166.667 mls/hr Documented by: Piperacillin Sod/Tazobactam (Sod 3.375 gm/ Dextrose) 50 mls @ 100 mls/hr IVPB Q8H-IV [facility]; Protocol Last Admin: 12/23/19 09:08 Dose: 100 mls/hr Documented by: Dextrose/Sodium Chloride (Dextrose 5%-Normal Saline+20 Meq Kcl -) 20 meq in 1,000 mls @ 50 mls/hr IV ASDIR [facility] Lisinopril (Prinivil) 40 mg PO DAILY [facility] Last Admin: 12/23/19 09:07 Dose: 40 mg Documented by: Lorazepam (Ativan -) 2 mg PO [facility] Last Admin: 12/22/19 21:46 Dose: 2 mg Documented by: Metformin HCl (Glucophage -) 500 mg PO BID@0700,1630 [facility] Last Admin: 12/23/19 06:06 Dose: 500 mg Documented by: Methylphenidate HCl (Ritalin -) 20 mg PO TID@0600,1200,1600 [facility] Last Admin: 12/23/19 11:41 Dose: 20 mg Documented by: Multivitamins/Minerals (Theragran-M) 1 each PO DAILY [facility] Last Admin: 12/23/19 09:06 Dose: 1 each Documented by: Oxycodone HCl (Roxicodone -) 5 mg PO Q6H PRN PRN Reason: PAIN SCALE 6-10 Last Admin: 12/22/19 19:58 Dose: 5 mg Documented by: Pantoprazole Sodium (Protonix -) 40 mg PO DAILY [facility] Last Admin: 12/23/19 09:06 Dose: 40 mg Documented by: Sodium Chloride ([place] Nasal [place] -) 2 spray NS BID PRN PRN Reason: NASAL CONGESTION Temazepam (Restoril -) 30 mg PO [facility] - Objective Vital Signs: Vital Signs Temperature 100.6 F H 12/23/19 09:00 Pulse Rate 93 H 12/23/19 09:00 Respiratory Rate 19 12/23/19 09:00 Blood Pressure 155/87 12/23/19 09:00 O2 Sat by Pulse Oximetry (%) 96 12/23/19 09:00 Constitutional: Yes: Calm Eyes: Yes: WNL HENT: Yes: WNL Neck: Yes: WNL Cardiovascular: Yes: S1, S2, S4 Respiratory: Yes: Diminished (MARCUS) Gastrointestinal: Yes: Soft ...Rectal Exam: Yes: Deferred Genitourinary: No: Anuria Breast(s): Yes: WNL Musculoskeletal: Yes: Muscle Weakness Extremities: Yes: Cool Edema: No Peripheral Pulses WNL: Yes Integumentary: Yes: WNL Neurological: Yes: WNL Psychiatric: Yes: WNL Labs: CBC, BMP 12/23/19 07:30 12/23/19 07:30 Abnormal Lab Results 12/23/19 12/23/19 07:30 07:30 WBC 11.6 H RDW 16.9 H Absolute Neuts (auto) 10.6 H Neutrophils % 91.2 H Neutrophils % (Manual) 86.9 H Lymphocytes % 4.7 L D Lymphocytes % (Manual) 4.0 L D Monocytes % (Manual) 1 L Sodium 130 L Chloride 96 L Creatinine 1.5 H Random Glucose 109 H Albumin 3.2 L - ....Imaging Chest X-ray: Image Reviewed EKG: Image Reviewed Assessment/Plan Legionella pneumonia CAD/ hx multiple coronary stents DM HTN HLD psoriatic arthritis COVID + 09/2019; negative on later test. Plan; ABX as per ID Apixaban discontinued. ASHD stable; continue ASA On hydralazine and lisinopril for HTN. on statin and fibrate for HDL
[2019-12-23] MEDS: D5-NS + 20 MEQ KCL - 20 MEQ/1,000 ML INFUS.BAG IV SCH (13:06)
[2019-12-23] MEDS: oxyCODONE HCL 5 MG TABLET PO PRN (14:51)
--- NOTE | 2019-12-23 15:12 | PN ---
Progress Note, Physician History of Present Illness: LEGIONELLA AG+ MORE ALERT C/O GENERALIZED WEAKNESS OCCASIONAL COUGH LOW GRADE TEMP WBC IMPROVED - Current Medication List Current Medications: Active Medications Acetaminophen (Tylenol -) 650 mg PO Q6H PRN PRN Reason: PAIN LEVEL 6-10 Last Admin: 12/23/19 14:52 Dose: 650 mg Documented by: Aspirin (Ecotrin -) 81 mg PO DAILY [facility] Last Admin: 12/23/19 09:08 Dose: 81 mg Documented by: Atorvastatin Calcium (Lipitor -) 40 mg PO HS [facility] Last Admin: 12/22/19 21:46 Dose: 40 mg Documented by: Cholecalciferol (Vitamin D3 -) 5,000 unit PO DAILY [facility] Last Admin: 12/23/19 09:07 Dose: 5,000 unit Documented by: Enoxaparin Sodium (Lovenox -) 40 mg SQ DAILY [facility] Fenofibric Acid (Trilipix -) 135 mg PO DAILY [facility] Last Admin: 12/23/19 09:08 Dose: 135 mg Documented by: Folic Acid (Folic Acid -) 1 mg PO DAILY [facility] Last Admin: 12/23/19 09:06 Dose: 1 mg Documented by: Gabapentin (Neurontin -) 100 mg PO DAILY [facility] Last Admin: 12/23/19 09:06 Dose: 100 mg Documented by: Hydralazine HCl (Apresoline -) 50 mg PO TID [facility] Last Admin: 12/23/19 13:13 Dose: 50 mg Documented by: Piperacillin Sod/Tazobactam (Sod 3.375 gm/ Dextrose) 50 mls @ 100 mls/hr IVPB Q8H-IV [facility]; Protocol Last Admin: 12/23/19 09:08 Dose: 100 mls/hr Documented by: Dextrose/Sodium Chloride (Dextrose 5%-Normal Saline+20 Meq Kcl -) 20 meq in 1,000 mls @ 50 mls/hr IV ASDIR [facility] Last Admin: 12/23/19 13:06 Dose: 50 mls/hr Documented by: Levofloxacin (Levaquin 750 Mg Premixed Ivpb -) 750 mg in 150 mls @ 100 mls/hr IVPB DAILY [facility]; Protocol Last Admin: 12/23/19 14:11 Dose: 100 mls/hr Documented by: Lisinopril (Prinivil) 40 mg PO DAILY [facility] Last Admin: 12/23/19 09:07 Dose: 40 mg Documented by: Lorazepam (Ativan -) 2 mg PO [facility] Last Admin: 12/22/19 21:46 Dose: 2 mg Documented by: Metformin HCl (Glucophage -) 500 mg PO BID@0700,1630 [facility] Last Admin: 12/23/19 06:06 Dose: 500 mg Documented by: Methylphenidate HCl (Ritalin -) 20 mg PO TID@0600,1200,1600 [facility] Last Admin: 12/23/19 11:41 Dose: 20 mg Documented by: Multivitamins/Minerals (Theragran-M) 1 each PO DAILY [facility] Last Admin: 12/23/19 09:06 Dose: 1 each Documented by: Oxycodone HCl (Roxicodone -) 5 mg PO Q6H PRN PRN Reason: PAIN SCALE 6-10 Last Admin: 12/23/19 14:51 Dose: 5 mg Documented by: Pantoprazole Sodium (Protonix -) 40 mg PO DAILY [facility] Last Admin: 12/23/19 09:06 Dose: 40 mg Documented by: Sodium Chloride ([place] Nasal [place] -) 2 spray NS BID PRN PRN Reason: NASAL CONGESTION Temazepam (Restoril -) 30 mg PO [facility] - Objective Vital Signs: Vital Signs Temperature 100.6 F H 12/23/19 09:00 Pulse Rate 93 H 12/23/19 09:00 Respiratory Rate 19 12/23/19 09:00 Blood Pressure 155/87 12/23/19 09:00 O2 Sat by Pulse Oximetry (%) 96 12/23/19 09:00 Constitutional: Yes: No Distress, Obese Eyes: Yes: Conjunctiva Clear Cardiovascular: Yes: Regular Rate and Rhythm, S1, S2 Respiratory: Yes: Diminished Gastrointestinal: Yes: Normal Bowel Sounds, Soft, Abdomen, Obese. No: Tenderness Labs: CBC, BMP 12/23/19 07:30 12/23/19 07:30 Assessment/Plan LEGIONELLA PNEUMONIA PROBABLE LEGIONELLA-ASSOCIATED ENCEPHALOPATHY S/P COVID-19 SUBSTITUTE LEVAQUIN 750MG QD
[2019-12-23] MEDS: BACLOFEN 10 MG TABLET (FP) PO SCH ×2 (16:26→21:23)
[2019-12-23] MEDS: ATORVASTATIN CA 40 MG TABLET (FP) PO SCH (21:23)
[2019-12-23] MEDS: LORazepam 1 MG TABLET PO SCH (21:23)
[2019-12-23] MEDS: TEMAZEPAM 15 MG CAPSULE PO SCH (21:25)
[2019-12-23] MEDS ORDERED: BACLOFEN 10 MG TABLET (FP) PO SCH (22:00)
[2019-12-24] MEDS: metFORMIN HCL 500 MG TABLET (FP) PO SCH ×2 (06:30→16:20)
[2019-12-24] MEDS: ACETAMINOPHEN 325 MG TABLET (FP) PO PRN (06:30)
[2019-12-24] MEDS: hydrALAZINE HCL 50 MG TABLET (FP) PO SCH ×3 (06:30→21:23)
[2019-12-24] MEDS: BACLOFEN 10 MG TABLET (FP) PO SCH ×3 (06:30→21:23)
[2019-12-24] MEDS: METHYLPHENIDATE HCL 5 MG TABLET PO SCH ×3 (06:37→16:20)
--- NOTE | 2019-12-24 08:10 | PN ---
Progress Note, Physician Chief Complaint: Patient seen and examined at the bedside, no acute events from last night, hiccups subsided, febrile. History of Present Illness: This 69 yr old w/m with PMH of CAD with multiple stents, HTN, HLD, NIDDM, psoriatic arthritis, hx of Covid 19 infection admitted via ER with an acute shortness of breath, an an acute left upper lobe Legionella pneumonia, and Legionella metabolic encephalopathy. - Current Medication List Current Medications: Active Medications Acetaminophen (Tylenol -) 650 mg PO Q6H PRN PRN Reason: PAIN LEVEL 6-10 Last Admin: 12/24/19 06:30 Dose: 650 mg Documented by: Aspirin (Ecotrin -) 81 mg PO DAILY [facility] Last Admin: 12/23/19 09:08 Dose: 81 mg Documented by: Atorvastatin Calcium (Lipitor -) 40 mg PO HS [facility] Last Admin: 12/23/19 21:23 Dose: 40 mg Documented by: Baclofen (Lioresal -) 5 mg PO TID [facility] Last Admin: 12/24/19 06:30 Dose: 5 mg Documented by: Cholecalciferol (Vitamin D3 -) 5,000 unit PO DAILY [facility] Last Admin: 12/23/19 09:07 Dose: 5,000 unit Documented by: Enoxaparin Sodium (Lovenox -) 40 mg SQ DAILY [facility] Fenofibric Acid (Trilipix -) 135 mg PO DAILY [facility] Last Admin: 12/23/19 09:08 Dose: 135 mg Documented by: Folic Acid (Folic Acid -) 1 mg PO DAILY [facility] Last Admin: 12/23/19 09:06 Dose: 1 mg Documented by: Gabapentin (Neurontin -) 100 mg PO DAILY [facility] Last Admin: 12/23/19 09:06 Dose: 100 mg Documented by: Hydralazine HCl (Apresoline -) 50 mg PO TID [facility] Last Admin: 12/24/19 06:30 Dose: 50 mg Documented by: Dextrose/Sodium Chloride (Dextrose 5%-Normal Saline+20 Meq Kcl -) 20 meq in 1,000 mls @ 50 mls/hr IV ASDIR [facility] Last Admin: 12/23/19 13:06 Dose: 50 mls/hr Documented by: Levofloxacin (Levaquin 750 Mg Premixed Ivpb -) 750 mg in 150 mls @ 100 mls/hr IVPB DAILY [facility]; Protocol Last Admin: 12/23/19 14:11 Dose: 100 mls/hr Documented by: Lisinopril (Prinivil) 40 mg PO DAILY [facility] Last Admin: 12/23/19 09:07 Dose: 40 mg Documented by: Lorazepam (Ativan -) 2 mg PO [facility] Last Admin: 12/23/19 21:23 Dose: 2 mg Documented by: Metformin HCl (Glucophage -) 500 mg PO BID@0700,1630 [facility] Last Admin: 12/24/19 06:30 Dose: 500 mg Documented by: Methylphenidate HCl (Ritalin -) 20 mg PO TID@0600,1200,1600 [facility] Last Admin: 12/24/19 06:37 Dose: 20 mg Documented by: Multivitamins/Minerals (Theragran-M) 1 each PO DAILY [facility] Last Admin: 12/23/19 09:06 Dose: 1 each Documented by: Oxycodone HCl (Roxicodone -) 5 mg PO Q6H PRN PRN Reason: PAIN SCALE 6-10 Last Admin: 12/23/19 14:51 Dose: 5 mg Documented by: Pantoprazole Sodium (Protonix -) 40 mg PO DAILY [facility] Last Admin: 12/23/19 09:06 Dose: 40 mg Documented by: Sodium Chloride ([place] Nasal [place] -) 2 spray NS BID PRN PRN Reason: NASAL CONGESTION Temazepam (Restoril -) 30 mg PO [facility] Last Admin: 12/23/19 21:25 Dose: 30 mg Documented by: - Objective Vital Signs: Vital Signs Temperature 100.9 F H 12/24/19 02:00 Pulse Rate 92 H 12/24/19 02:00 Respiratory Rate 19 12/23/19 21:00 Blood Pressure 157/92 12/23/19 22:00 O2 Sat by Pulse Oximetry (%) 97 12/23/19 21:00 Constitutional: Yes: Well Nourished, Calm, Mild Distress Eyes: Yes: Conjunctiva Clear, EOM Intact HENT: Yes: Atraumatic, Normocephalic Neck: Yes: Supple, Trachea Midline Cardiovascular: Yes: Regular Rate and Rhythm Respiratory: Yes: Regular, CTA Bilaterally, On Nasal O2, Rales Gastrointestinal: Yes: Normal Bowel Sounds, Soft ...Rectal Exam: Yes: Deferred Genitourinary: Yes: WNL Breast(s): Yes: WNL Musculoskeletal: Yes: Muscle Weakness Extremities: Yes: WNL Edema: No Peripheral Pulses WNL: Yes Integumentary: Yes: WNL Neurological: Yes: Alert, Oriented, Weakness ...Motor Strength: LUE (generalized muscle weakness of all extremities) Psychiatric: Yes: Alert, Oriented Labs: CBC, BMP 12/23/19 07:30 12/23/19 07:30 - ....Imaging Other: Report Reviewed (lab data reviewed) Problem List - Problems (1) Pneumonia Code(s): J18.9 - PNEUMONIA, UNSPECIFIED ORGANISM (2) ADHD (attention deficit hyperactivity disorder), combined type Code(s): F90.2 - ATTENTION-DEFICIT HYPERACTIVITY DISORDER, COMBINED TYPE (3) Acute respiratory failure Code(s): J96.00 - ACUTE RESPIRATORY FAILURE, UNSP W HYPOXIA OR HYPERCAPNIA (4) CAD S/P percutaneous coronary angioplasty Code(s): I25.10 - ATHSCL HEART DISEASE OF [place] CORONARY ARTERY W/O ANG PCTRS; Z98.61 - CORONARY ANGIOPLASTY STATUS (5) COVID-19 Code(s): U07.1 - COVID POSITIVE (6) COVID-19 virus infection Code(s): U07.1 - COVID POSITIVE (7) Diabetes mellitus Code(s): E11.9 - TYPE 2 DIABETES MELLITUS WITHOUT COMPLICATIONS (8) HTN (hypertension) Code(s): I10 - ESSENTIAL (PRIMARY) HYPERTENSION (9) Hyperlipidemia Code(s): E78.5 - HYPERLIPIDEMIA, UNSPECIFIED (10) Hypoxemia requiring supplemental oxygen Code(s): R09.02 - HYPOXEMIA; Z99.81 - DEPENDENCE ON SUPPLEMENTAL OXYGEN (11) Hypoxia Code(s): R09.02 - HYPOXEMIA (12) Obesity Code(s): E66.9 - OBESITY, UNSPECIFIED (13) Pneumonia involving left lung Code(s): J18.9 - PNEUMONIA, UNSPECIFIED ORGANISM Qualifiers: Pneumonia type: due to unspecified organism Lung location: unspecified part of lung Qualified Code(s): J18.9 - Pneumonia, unspecified organism (14) Psoriatic arthritis Code(s): L40.50 - ARTHROPATHIC PSORIASIS, UNSPECIFIED (15) SOB (shortness of breath) Code(s): R06.02 - SHORTNESS OF BREATH (16) Sedentary lifestyle Code(s): Z91.89 - [facility] PERSONAL RISK FACTORS, NOT ELSEWHERE CLASSIFIED (17) Legionella pneumonia Code(s): A48.1 - LEGIONNAIRES' DISEASE Assessment/Plan Assessment/plan: acute shortness of breath, acute left upper lobe Legionella Pneumonia, acute Legionella metabolic encephalopathy, acute fever, acute leukocytosis, CAD with multiple stents, HTN, HLD, NIDDM, psoriatic arthritis, singultus, hx of Covid 19 infection, neutrophilic leukocytosis, hyponatremia, transaminasemia, hypoproteinemia, hypoalbuminemia, hypocalcemia; IV fluids for hydration and hyponatremia, IV Levofloxacin as per ID for acute Legionella Pneumonia, DVT/GI prophylaxis, baclofen and gabapentin for singultus, atorvastatin and fenofibric acid for HLD, lisinopril and hydralazine for HTN, lorazepam and temazepam for insomnia, out of bed in chair as tolerated, metformin for NIDDM.
[2019-12-24 08:32] LABS: BASO % 0.2 % (0-2.0); HEMATOCRIT 36.7 % (35.4-49); HEMOGLOBIN 12.1 GM/dL (11.7-16.9); LYMPH % 4.6 % (8-40); MCH 29.8 pg (25.7-33.7); MEAN CELL VOLUME 90.3 fl (80-96); MEAN PLT VOLUME 7.8 fl (7.5-11.1); MONO % 5.3 % (3.8-10.2); NEUT % 89.9 % (42.8-82.8); PLATELET COUNT 159 K/MM3 (134-434); RBC 4.06 M/mm3 (4.00-5.60)
[2019-12-24 09:09] LABS: ALBUMIN 2.6 g/dl (3.4-5.0); BILIRUBIN,TOTAL 0.8 mg/dL (0.2-1); BLOOD UREA NITROGEN 16.1 mg/dL (7-18); CALCIUM 8.2 mg/dL (8.5-10.1); CREATININE 1.4 mg/dL (0.55-1.3); POTASSIUM 3.8 mmol/L (3.5-5.1); TOT PROT 5.8 g/dl (6.4-8.2)
[2019-12-24] MEDS: GABAPENTIN 100 MG CAPSULE PO SCH (09:30)
[2019-12-24] MEDS: ASPIRIN COATED 81 MG TABLET.EC PO SCH (09:30)
[2019-12-24] MEDS: LISINOPRIL 20 MG TABLET (FP) PO SCH (09:30)
[2019-12-24] MEDS: ENOXAPARIN NA (PORCINE) 40 MG/0.4 ML DISP.SYRIN SQ SCH (09:30)
[2019-12-24] MEDS: FOLIC ACID 1 MG TABLET (FP) PO SCH (09:30)
[2019-12-24] MEDS: MULTIVITAMINS THER W-MINERALS COMBO TABLET (FP) PO SCH (09:30)
[2019-12-24] MEDS: CHOLECALCIFEROL (VIT D3) 1,000 UNIT (25 MCG) TABLET PO SCH (09:30)
[2019-12-24] MEDS: D5-NS + 20 MEQ KCL - 20 MEQ/1,000 ML INFUS.BAG IV SCH (09:31)
[2019-12-24] MEDS: PANTOPRAZOLE 40 MG TABLET PO SCH (09:31)
[2019-12-24] MEDS: FENOFIBRIC ACID 135 MG CAP PO SCH (09:34)
--- NOTE | 2019-12-24 11:04 | PN ---
Progress Note, Physician History of Present Illness: 69-year-old male history of prediabetes on metformin Psoriatic arthritis on methotrexate, CAD with multiple cardiac stents ,hypertension, hyperlipidemia who was recently COVID positive in september. did test negative since then. is here today with recurrent symptoms of shortness of breath fever myalgia decreased appetite. Patient denies any urinary symptoms, denies any abdominal pain. States he did check his pulse ox at home it was only 94% he had a fever of 101 did take Tylenol early this a.m. no nausea no vomiting just decreased appetite overall. he feels short of breath and it is worse with lying flat. no leg swelling patient is currently on Eliquis has not had any DVTs or PEs in his course no nausea no vomiting no other current complaints PMH Major events cardiac cath 04/23/17 Dr. Nayak [facility] PCI of RPDA LOUIE Cardiac Cath. 04/04/18 Dr. Nayak [facility] Patient refused CABG. PCI LOUIE PRCA Left Main 30% LAD proximal stent patent, mid 40%, distal 50% tapers to small caliber vessel D1 80% medium size vessel D2 80% medium size vessel LCx mid stent widely patent Ramus stent widely patent with 90% stenosis proximal to patent stent- ostial lesion OM1 stent widely patent Cardiac Cath: 06/27/18 at [facility] by Dr. Deluna PCI LOUIE Ramus Ongoing medical problems 3 vessel disease - refused CABG September 09, 2015 Dr. Deluna Anxiety LOUIE of pLAD November 18, 2015 Dr. Deluna Hyperlipidemia Hypertension PCI LOUIE of mRCA September 10, 2015 Dr. Deluna PCI of Ramus and OM1 September 17, 2015 Dr. Deluna Pre-diabetes treated with metformin in the past Sleep apnea Basal cell CA nose.2016 - resection 2017 - Current Medication List Current Medications: Active Medications Acetaminophen (Tylenol -) 650 mg PO Q6H PRN PRN Reason: PAIN LEVEL 6-10 Last Admin: 12/24/19 06:30 Dose: 650 mg Documented by: Aspirin (Ecotrin -) 81 mg PO DAILY [facility] Last Admin: 12/24/19 09:30 Dose: 81 mg Documented by: Atorvastatin Calcium (Lipitor -) 40 mg PO HS [facility] Last Admin: 12/23/19 21:23 Dose: 40 mg Documented by: Baclofen (Lioresal -) 5 mg PO TID [facility] Last Admin: 12/24/19 06:30 Dose: 5 mg Documented by: Cholecalciferol (Vitamin D3 -) 5,000 unit PO DAILY [facility] Last Admin: 12/24/19 09:30 Dose: 5,000 unit Documented by: Enoxaparin Sodium (Lovenox -) 40 mg SQ DAILY [facility] Last Admin: 12/24/19 09:30 Dose: 40 mg Documented by: Fenofibric Acid (Trilipix -) 135 mg PO DAILY [facility] Last Admin: 12/24/19 09:34 Dose: 135 mg Documented by: Folic Acid (Folic Acid -) 1 mg PO DAILY [facility] Last Admin: 12/24/19 09:30 Dose: 1 mg Documented by: Gabapentin (Neurontin -) 100 mg PO DAILY [facility] Last Admin: 12/24/19 09:30 Dose: 100 mg Documented by: Hydralazine HCl (Apresoline -) 50 mg PO TID [facility] Last Admin: 12/24/19 06:30 Dose: 50 mg Documented by: Dextrose/Sodium Chloride (Dextrose 5%-Normal Saline+20 Meq Kcl -) 20 meq in 1,000 mls @ 50 mls/hr IV ASDIR [facility] Last Admin: 12/24/19 09:31 Dose: 50 mls/hr Documented by: Levofloxacin (Levaquin 750 Mg Premixed Ivpb -) 750 mg in 150 mls @ 100 mls/hr IVPB DAILY [facility]; Protocol Last Admin: 12/24/19 09:29 Dose: 100 mls/hr Documented by: Lisinopril (Prinivil) 40 mg PO DAILY [facility] Last Admin: 12/24/19 09:30 Dose: 40 mg Documented by: Lorazepam (Ativan -) 2 mg PO HS [facility] Last Admin: 12/23/19 21:23 Dose: 2 mg Documented by: Metformin HCl (Glucophage -) 500 mg PO BID@0700,1630 [facility] Last Admin: 12/24/19 06:30 Dose: 500 mg Documented by: Methylphenidate HCl (Ritalin -) 20 mg PO TID@0600,1200,1600 [facility] Last Admin: 12/24/19 06:37 Dose: 20 mg Documented by: Multivitamins/Minerals (Theragran-M) 1 each PO DAILY [facility] Last Admin: 12/24/19 09:30 Dose: 1 each Documented by: Oxycodone HCl (Roxicodone -) 5 mg PO Q6H PRN PRN Reason: PAIN SCALE 6-10 Last Admin: 12/23/19 14:51 Dose: 5 mg Documented by: Pantoprazole Sodium (Protonix -) 40 mg PO DAILY [facility] Last Admin: 12/24/19 09:31 Dose: 40 mg Documented by: Sodium Chloride ([place] Nasal [place] -) 2 spray NS BID PRN PRN Reason: NASAL CONGESTION Temazepam (Restoril -) 30 mg PO HS [facility] Last Admin: 12/23/19 21:25 Dose: 30 mg Documented by: - Objective Vital Signs: Vital Signs Temperature 100.9 F H 12/24/19 06:00 Pulse Rate 92 H 12/24/19 06:00 Respiratory Rate 12/24/19 06:00 Blood Pressure 146/78 12/24/19 06:00 O2 Sat by Pulse Oximetry (%) 94 L 12/24/19 06:00 Eyes: Yes: WNL, Conjunctiva Clear, EOM Intact HENT: Yes: WNL, Atraumatic, Normocephalic Neck: Yes: WNL, Supple, Trachea Midline Cardiovascular: Yes: WNL, Regular Rate and Rhythm Respiratory: Yes: WNL, Regular, Rhonchi Gastrointestinal: Yes: WNL, Normal Bowel Sounds Genitourinary: Yes: WNL Musculoskeletal: Yes: WNL Extremities: Yes: WNL Edema: No Integumentary: Yes: WNL Neurological: Yes: WNL, Alert, Oriented ...Motor Strength: WNL Psychiatric: Yes: WNL Labs: CBC, BMP 12/24/19 07:20 12/24/19 07:20 Problem List - Problems (1) Pneumonia Code(s): J18.9 - PNEUMONIA, UNSPECIFIED ORGANISM (2) ADHD (attention deficit hyperactivity disorder), combined type Code(s): F90.2 - ATTENTION-DEFICIT HYPERACTIVITY DISORDER, COMBINED TYPE (3) Acute respiratory failure Code(s): J96.00 - ACUTE RESPIRATORY FAILURE, UNSP W HYPOXIA OR HYPERCAPNIA (4) CAD S/P percutaneous coronary angioplasty Code(s): I25.10 - ATHSCL HEART DISEASE OF [place] CORONARY ARTERY W/O ANG PCTRS; Z98.61 - CORONARY ANGIOPLASTY STATUS (5) COVID-19 Code(s): U07.1 - COVID POSITIVE (6) COVID-19 virus infection Code(s): U07.1 - COVID POSITIVE (7) D-dimer, elevated Code(s): R79.89 - OTHER SPECIFIED ABNORMAL FINDINGS OF BLOOD CHEMISTRY (8) Diabetes mellitus Code(s): E11.9 - TYPE 2 DIABETES MELLITUS WITHOUT COMPLICATIONS (9) HTN (hypertension) Code(s): I10 - ESSENTIAL (PRIMARY) HYPERTENSION (10) Hyperlipidemia Code(s): E78.5 - HYPERLIPIDEMIA, UNSPECIFIED (11) Hypoxemia requiring supplemental oxygen Code(s): R09.02 - HYPOXEMIA; Z99.81 - DEPENDENCE ON SUPPLEMENTAL OXYGEN (12) Hypoxia Code(s): R09.02 - HYPOXEMIA (13) Obesity Code(s): E66.9 - OBESITY, UNSPECIFIED (14) Pneumonia involving left lung Code(s): J18.9 - PNEUMONIA, UNSPECIFIED ORGANISM Qualifiers: Pneumonia type: due to unspecified organism Lung location: unspecified part of lung Qualified Code(s): J18.9 - Pneumonia, unspecified organism (15) Psoriatic arthritis Code(s): L40.50 - ARTHROPATHIC PSORIASIS, UNSPECIFIED (16) SOB (shortness of breath) Code(s): R06.02 - SHORTNESS OF BREATH (17) Sedentary lifestyle Code(s): Z91.89 - OTH PERSONAL RISK FACTORS, NOT ELSEWHERE CLASSIFIED Assessment/Plan Legionella pneumonia CAD/ hx multiple coronary stents DM HTN HLD psoriatic arthritis COVID + 09/2019; negative on later test. Plan; ABX as per ID Apixaban discontinued. ASHD stable; continue ASA On hydralazine and lisinopril for HTN. on statin and fibrate for HDL
--- NOTE | 2019-12-24 15:30 | PN ---
Progress Note, Physician History of Present Illness: OOB IN CHAIR LEGIONELLA AG+ MORE ALERT, LESS CONFUSED OCCASIONAL COUGH LOW GRADE TEMP WBC IMPROVED - Current Medication List Current Medications: Active Medications Acetaminophen (Tylenol -) 650 mg PO Q6H PRN PRN Reason: PAIN LEVEL 6-10 Last Admin: 12/24/19 06:30 Dose: 650 mg Documented by: Aspirin (Ecotrin -) 81 mg PO DAILY [facility] Last Admin: 12/24/19 09:30 Dose: 81 mg Documented by: Atorvastatin Calcium (Lipitor -) 40 mg PO HS [facility] Last Admin: 12/23/19 21:23 Dose: 40 mg Documented by: Baclofen (Lioresal -) 5 mg PO TID [facility] Last Admin: 12/24/19 14:27 Dose: 5 mg Documented by: Cholecalciferol (Vitamin D3 -) 5,000 unit PO DAILY [facility] Last Admin: 12/24/19 09:30 Dose: 5,000 unit Documented by: Enoxaparin Sodium (Lovenox -) 40 mg SQ DAILY [facility] Last Admin: 12/24/19 09:30 Dose: 40 mg Documented by: Fenofibric Acid (Trilipix -) 135 mg PO DAILY [facility] Last Admin: 12/24/19 09:34 Dose: 135 mg Documented by: Folic Acid (Folic Acid -) 1 mg PO DAILY [facility] Last Admin: 12/24/19 09:30 Dose: 1 mg Documented by: Gabapentin (Neurontin -) 100 mg PO DAILY [facility] Last Admin: 12/24/19 09:30 Dose: 100 mg Documented by: Hydralazine HCl (Apresoline -) 50 mg PO TID [facility] Last Admin: 12/24/19 14:27 Dose: 50 mg Documented by: Dextrose/Sodium Chloride (Dextrose 5%-Normal Saline+20 Meq Kcl -) 20 meq in 1,000 mls @ 50 mls/hr IV ASDIR [facility] Last Admin: 12/24/19 09:31 Dose: 50 mls/hr Documented by: Levofloxacin (Levaquin 750 Mg Premixed Ivpb -) 750 mg in 150 mls @ 100 mls/hr IVPB DAILY [facility]; Protocol Last Admin: 12/24/19 09:29 Dose: 100 mls/hr Documented by: Lisinopril (Prinivil) 40 mg PO DAILY [facility] Last Admin: 12/24/19 09:30 Dose: 40 mg Documented by: Lorazepam (Ativan -) 2 mg PO HS [facility] Last Admin: 12/23/19 21:23 Dose: 2 mg Documented by: Metformin HCl (Glucophage -) 500 mg PO BID@0700,1630 [facility] Last Admin: 12/24/19 06:30 Dose: 500 mg Documented by: Methylphenidate HCl (Ritalin -) 20 mg PO TID@0600,1200,1600 [facility] Last Admin: 12/24/19 11:37 Dose: 20 mg Documented by: Multivitamins/Minerals (Theragran-M) 1 each PO DAILY [facility] Last Admin: 12/24/19 09:30 Dose: 1 each Documented by: Oxycodone HCl (Roxicodone -) 5 mg PO Q6H PRN PRN Reason: PAIN SCALE 6-10 Last Admin: 12/23/19 14:51 Dose: 5 mg Documented by: Pantoprazole Sodium (Protonix -) 40 mg PO DAILY [facility] Last Admin: 12/24/19 09:31 Dose: 40 mg Documented by: Sodium Chloride ([place] Nasal [place] -) 2 spray NS BID PRN PRN Reason: NASAL CONGESTION Temazepam (Restoril -) 30 mg PO HS [facility] Last Admin: 12/23/19 21:25 Dose: 30 mg Documented by: - Objective Vital Signs: Vital Signs Temperature 99.9 F H 12/24/19 14:48 Pulse Rate 86 12/24/19 14:48 Respiratory Rate 12/24/19 14:48 Blood Pressure 126/86 12/24/19 14:48 O2 Sat by Pulse Oximetry (%) 95 12/24/19 14:48 Constitutional: Yes: No Distress Eyes: Yes: Conjunctiva Clear Cardiovascular: Yes: Regular Rate and Rhythm, S1, S2 Respiratory: Yes: CTA Bilaterally Gastrointestinal: Yes: Normal Bowel Sounds, Soft. No: Tenderness Labs: CBC, BMP 12/24/19 07:20 12/24/19 07:20 Assessment/Plan LEGIONELLA PNEUMONIA PROBABLE LEGIONELLA-ASSOCIATED ENCEPHALOPATHY IMPROVED S/P COVID-19 CONTINUE LEVAQUIN 750MG QD
[2019-12-24] MEDS: ATORVASTATIN CA 40 MG TABLET (FP) PO SCH (21:23)
[2019-12-24] MEDS: LORazepam 1 MG TABLET PO SCH (21:24)
[2019-12-24] MEDS: TEMAZEPAM 15 MG CAPSULE PO SCH (21:24)
[2019-12-24] MEDS ORDERED: MELATONIN 5 MG TABLETS PO ONE (22:12)
[2019-12-25] MEDS: metFORMIN HCL 500 MG TABLET (FP) PO SCH ×2 (06:36→16:21)
[2019-12-25] MEDS: hydrALAZINE HCL 50 MG TABLET (FP) PO SCH ×3 (06:37→22:00)
[2019-12-25] MEDS: BACLOFEN 10 MG TABLET (FP) PO SCH ×3 (06:37→22:00)
[2019-12-25] MEDS: METHYLPHENIDATE HCL 5 MG TABLET PO SCH ×3 (06:39→16:22)
[2019-12-25 08:42] LABS: BASO % 0.4 % (0-2.0); EOS % 0.5 % (0-4.5); HEMATOCRIT 36.3 % (35.4-49); LYMPH % 8.4 % (8-40); MCH 29.7 pg (25.7-33.7); MEAN CELL VOLUME 90.2 fl (80-96); MEAN PLT VOLUME 7.8 fl (7.5-11.1); MONO % 8.4 % (3.8-10.2); NEUT % 82.3 % (42.8-82.8); PLATELET COUNT 199 K/MM3 (134-434); RBC 4.02 M/mm3 (4.00-5.60); WHITE BLOOD COUNT 8.5 K/mm3 (4.0-10.0)
[2019-12-25 08:59] LABS: ALBUMIN 2.6 g/dl (3.4-5.0); BILIRUBIN,TOTAL 0.6 mg/dL (0.2-1); BLOOD UREA NITROGEN 17.4 mg/dL (7-18); CALCIUM 8.3 mg/dL (8.5-10.1); CREATININE 1.3 mg/dL (0.55-1.3); MAGNESIUM 2.1 mg/dL (1.8-2.4); PHOSPHOROUS 2.1 mg/dL (2.5-4.9); TOT PROT 5.9 g/dl (6.4-8.2)
[2019-12-25] MEDS: ENOXAPARIN NA (PORCINE) 40 MG/0.4 ML DISP.SYRIN SQ SCH (09:14)
[2019-12-25] MEDS: D5-NS + 20 MEQ KCL - 20 MEQ/1,000 ML INFUS.BAG IV SCH (09:14)
[2019-12-25] MEDS: MULTIVITAMINS THER W-MINERALS COMBO TABLET (FP) PO SCH (09:15)
[2019-12-25] MEDS: CHOLECALCIFEROL (VIT D3) 1,000 UNIT (25 MCG) TABLET PO SCH (09:15)
[2019-12-25] MEDS: LISINOPRIL 20 MG TABLET (FP) PO SCH (09:15)
[2019-12-25] MEDS: FOLIC ACID 1 MG TABLET (FP) PO SCH (09:16)
[2019-12-25] MEDS: PANTOPRAZOLE 40 MG TABLET PO SCH (09:16)
[2019-12-25] MEDS: ASPIRIN COATED 81 MG TABLET.EC PO SCH (09:16)
[2019-12-25] MEDS: GABAPENTIN 100 MG CAPSULE PO SCH (09:16)
--- NOTE | 2019-12-25 09:42 | PN ---
Progress Note, Physician Chief Complaint: Patient seen and examined at the bedside, insomnia, diarrhea, generalized muscle weakness, no labored breathing. History of Present Illness: This 69 yr old w/m with PMH of CAD with multiple stents, HTN, HLD, NIDDM, psoriatic arthritis admitted via ER with an acute shortness of breath, an acute left upper lobe Legionella Pneumonia, and an acute generalized muscle weakness. - Current Medication List Current Medications: Active Medications Acetaminophen (Tylenol -) 650 mg PO Q6H PRN PRN Reason: PAIN LEVEL 6-10 Last Admin: 12/24/19 06:30 Dose: 650 mg Documented by: Aspirin (Ecotrin -) 81 mg PO DAILY [facility] Last Admin: 12/25/19 09:16 Dose: 81 mg Documented by: Atorvastatin Calcium (Lipitor -) 40 mg PO HS [facility] Last Admin: 12/24/19 21:23 Dose: 40 mg Documented by: Baclofen (Lioresal -) 5 mg PO TID [facility] Last Admin: 12/25/19 06:37 Dose: 5 mg Documented by: Cholecalciferol (Vitamin D3 -) 5,000 unit PO DAILY [facility] Last Admin: 12/25/19 09:15 Dose: 5,000 unit Documented by: Enoxaparin Sodium (Lovenox -) 40 mg SQ DAILY [facility] Last Admin: 12/25/19 09:14 Dose: 40 mg Documented by: Fenofibric Acid (Trilipix -) 135 mg PO DAILY [facility] Last Admin: 12/24/19 09:34 Dose: 135 mg Documented by: Folic Acid (Folic Acid -) 1 mg PO DAILY [facility] Last Admin: 12/25/19 09:16 Dose: 1 mg Documented by: Gabapentin (Neurontin -) 100 mg PO DAILY [facility] Last Admin: 12/25/19 09:16 Dose: 100 mg Documented by: Hydralazine HCl (Apresoline -) 50 mg PO TID [facility] Last Admin: 12/25/19 06:37 Dose: 50 mg Documented by: Dextrose/Sodium Chloride (Dextrose 5%-Normal Saline+20 Meq Kcl -) 20 meq in 1,000 mls @ 50 mls/hr IV ASDIR [facility] Last Admin: 12/25/19 09:14 Dose: 50 mls/hr Documented by: Levofloxacin (Levaquin 750 Mg Premixed Ivpb -) 750 mg in 150 mls @ 100 mls/hr IVPB DAILY [facility]; Protocol Last Admin: 12/25/19 09:14 Dose: 100 mls/hr Documented by: Lisinopril (Prinivil) 40 mg PO DAILY [facility] Last Admin: 12/25/19 09:15 Dose: 40 mg Documented by: Lorazepam (Ativan -) 2 mg PO [facility] Last Admin: 12/24/19 21:24 Dose: 2 mg Documented by: Metformin HCl (Glucophage -) 500 mg PO BID@0700,1630 [facility] Last Admin: 12/25/19 06:36 Dose: Not Given Documented by: Methylphenidate HCl (Ritalin -) 20 mg PO TID@0600,1200,1600 [facility] Last Admin: 12/25/19 06:39 Dose: 20 mg Documented by: Multivitamins/Minerals (Theragran-M) 1 each PO DAILY [facility] Last Admin: 12/25/19 09:15 Dose: 1 each Documented by: Oxycodone HCl (Roxicodone -) 5 mg PO Q6H PRN PRN Reason: PAIN SCALE 6-10 Last Admin: 12/23/19 14:51 Dose: 5 mg Documented by: Pantoprazole Sodium (Protonix -) 40 mg PO DAILY [facility] Last Admin: 12/25/19 09:16 Dose: 40 mg Documented by: Sodium Chloride ([place] Nasal [place] -) 2 spray NS BID PRN PRN Reason: NASAL CONGESTION Temazepam (Restoril -) 30 mg PO [facility] Last Admin: 12/24/19 21:24 Dose: 30 mg Documented by: - Objective Vital Signs: Vital Signs Temperature 99.8 F H 12/25/19 06:00 Pulse Rate 73 12/25/19 06:00 Respiratory Rate 18 12/25/19 06:00 Blood Pressure 138/58 L 12/25/19 06:00 O2 Sat by Pulse Oximetry (%) 97 12/25/19 06:00 Constitutional: Yes: Well Nourished, Anxious, Mild Distress, Other (insomnia) Eyes: Yes: Conjunctiva Clear, EOM Intact HENT: Yes: Atraumatic, Normocephalic Neck: Yes: Supple, Trachea Midline Cardiovascular: Yes: Regular Rate and Rhythm Respiratory: Yes: Regular, CTA Bilaterally, On Nasal O2 (oxygen 3L/min via nasal cannula with spo2 98%) Gastrointestinal: Yes: Normal Bowel Sounds, Soft, Other (diarrhea) ...Rectal Exam: Yes: Deferred Genitourinary: Yes: WNL Breast(s): Yes: WNL Musculoskeletal: Yes: Muscle Weakness Extremities: Yes: WNL Edema: No Peripheral Pulses WNL: Yes Integumentary: Yes: WNL Neurological: Yes: Weakness ...Motor Strength: LLE (muscle weakness), RLE (muscle weakness) Psychiatric: Yes: Alert, Oriented Labs: CBC, BMP 12/25/19 07:35 12/25/19 07:35 - ....Imaging Other: Report Reviewed (lab data reviewed) Problem List - Problems (1) Pneumonia Code(s): J18.9 - PNEUMONIA, UNSPECIFIED ORGANISM (2) ADHD (attention deficit hyperactivity disorder), combined type Code(s): F90.2 - ATTENTION-DEFICIT HYPERACTIVITY DISORDER, COMBINED TYPE (3) Acute respiratory failure Code(s): J96.00 - ACUTE RESPIRATORY FAILURE, UNSP W HYPOXIA OR HYPERCAPNIA (4) CAD S/P percutaneous coronary angioplasty Code(s): I25.10 - ATHSCL HEART DISEASE OF [place] CORONARY ARTERY W/O ANG PCTRS; Z98.61 - CORONARY ANGIOPLASTY STATUS (5) COVID-19 Code(s): U07.1 - COVID POSITIVE (6) COVID-19 virus infection Code(s): U07.1 - COVID POSITIVE (7) Diabetes mellitus Code(s): E11.9 - TYPE 2 DIABETES MELLITUS WITHOUT COMPLICATIONS (8) HTN (hypertension) Code(s): I10 - ESSENTIAL (PRIMARY) HYPERTENSION (9) Hyperlipidemia Code(s): E78.5 - HYPERLIPIDEMIA, UNSPECIFIED (10) Hypoxemia requiring supplemental oxygen Code(s): R09.02 - HYPOXEMIA; Z99.81 - DEPENDENCE ON SUPPLEMENTAL OXYGEN (11) Hypoxia Code(s): R09.02 - HYPOXEMIA (12) Obesity Code(s): E66.9 - OBESITY, UNSPECIFIED (13) Pneumonia involving left lung Code(s): J18.9 - PNEUMONIA, UNSPECIFIED ORGANISM Qualifiers: Pneumonia type: due to unspecified organism Lung location: unspecified part of lung Qualified Code(s): J18.9 - Pneumonia, unspecified organism (14) Psoriatic arthritis Code(s): L40.50 - ARTHROPATHIC PSORIASIS, UNSPECIFIED (15) SOB (shortness of breath) Code(s): R06.02 - SHORTNESS OF BREATH (16) Sedentary lifestyle Code(s): Z91.89 - OTH PERSONAL RISK FACTORS, NOT ELSEWHERE CLASSIFIED (17) Legionella pneumonia Code(s): A48.1 - LEGIONNAIRES' DISEASE (18) Diarrhea Code(s): R19.7 - DIARRHEA, UNSPECIFIED (19) Insomnia Code(s): G47.00 - INSOMNIA, UNSPECIFIED (20) Generalized muscle weakness Code(s): M62.81 - MUSCLE WEAKNESS (GENERALIZED) Assessment/Plan Assessment/plan: acute shortness of breath, acute left upper lobe Legionella Pneumonia, diarrhea, insomnia, generalized muscle weakness, CAD with multiple stents, HTN, HLD, NIDDM, psoriatic arthritis, hyponatremia; IV fluids for hydration and hyponatremia, IV Levofloxacin as per ID for Legionella Pneumonia, DVT/GI prophylaxis, physical therapy, baclofen and gabapentin for singultus, atorvastatin and fenofibric acid for HLD, lisinopril and hydralazine for HTN, temazepam and lorazepam for insomnia, metformin for NIDDM, loperamide for diarrhea, stool for c difficile toxin.
[2019-12-25] MEDS ORDERED: LOPERAMIDE HCL 2 MG CAPSULE PO ONE (10:00)
[2019-12-25] MEDS ORDERED: DEXTROSE IVPB ONE (10:30)
[2019-12-25] MEDS ORDERED: POTASSIUM PHOSPHATE IVPB ONE (10:30)
[2019-12-25] MEDS ORDERED: WATER IVPB ONE (10:30)
[2019-12-25] MEDS: FENOFIBRIC ACID 135 MG CAP PO SCH (11:05)
--- NOTE | 2019-12-25 14:20 | PN ---
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 Admitted with recurrent symptoms of shortness of breath, fever, myalgia, decreased appetite. Patient denies any urinary symptoms, denies any abdominal pain. States he did check his pulse ox at home it was only 94% he had a fever of 101.no nausea no vomiting; decreased appetite overall. He feels short of breath;it is worse lying flat. no leg swelling patient. Currently on Eliquis; has not had any DVTs or PEs in his course no nausea no vomiting. - Current Medication List Current Medications: Active Medications Acetaminophen (Tylenol -) 650 mg PO Q6H PRN PRN Reason: PAIN LEVEL 6-10 Last Admin: 12/24/19 06:30 Dose: 650 mg Documented by: Aspirin (Ecotrin -) 81 mg PO DAILY [facility] Last Admin: 12/25/19 09:16 Dose: 81 mg Documented by: Atorvastatin Calcium (Lipitor -) 40 mg PO HS [facility] Last Admin: 12/24/19 21:23 Dose: 40 mg Documented by: Baclofen (Lioresal -) 5 mg PO TID [facility] Last Admin: 12/25/19 06:37 Dose: 5 mg Documented by: Cholecalciferol (Vitamin D3 -) 5,000 unit PO DAILY [facility] Last Admin: 12/25/19 09:15 Dose: 5,000 unit Documented by: Enoxaparin Sodium (Lovenox -) 40 mg SQ DAILY [facility] Last Admin: 12/25/19 09:14 Dose: 40 mg Documented by: Fenofibric Acid (Trilipix -) 135 mg PO DAILY [facility] Last Admin: 12/25/19 11:05 Dose: 135 mg Documented by: Folic Acid (Folic Acid -) 1 mg PO DAILY [facility] Last Admin: 12/25/19 09:16 Dose: 1 mg Documented by: Gabapentin (Neurontin -) 100 mg PO DAILY [facility] Last Admin: 12/25/19 09:16 Dose: 100 mg Documented by: Hydralazine HCl (Apresoline -) 50 mg PO TID [facility] Last Admin: 12/25/19 06:37 Dose: 50 mg Documented by: Dextrose/Sodium Chloride (Dextrose 5%-Normal Saline+20 Meq Kcl -) 20 meq in 1,000 mls @ 50 mls/hr IV ASDIR [facility] Last Admin: 12/25/19 09:14 Dose: 50 mls/hr Documented by: Levofloxacin (Levaquin 750 Mg Premixed Ivpb -) 750 mg in 150 mls @ 100 mls/hr IVPB DAILY [facility]; Protocol Last Admin: 12/25/19 09:14 Dose: 100 mls/hr Documented by: Potassium Phosphate 21 mm/ (Dextrose) 507 mls @ 63.375 mls/hr IVPB ONCE ONE Stop: 12/25/19 18:29 Last Admin: 12/25/19 11:12 Dose: 63.375 mls/hr Documented by: Lisinopril (Prinivil) 40 mg PO DAILY [facility] Last Admin: 12/25/19 09:15 Dose: 40 mg Documented by: Loperamide HCl (Imodium -) 4 mg PO Q6H PRN PRN Reason: DIARRHEA Lorazepam (Ativan -) 2 mg PO [facility] Last Admin: 12/24/19 21:24 Dose: 2 mg Documented by: Metformin HCl (Glucophage -) 500 mg PO BID@0700,1630 [facility] Last Admin: 12/25/19 06:36 Dose: Not Given Documented by: Methylphenidate HCl (Ritalin -) 20 mg PO TID@0600,1200,1600 [facility] Last Admin: 12/25/19 12:28 Dose: 20 mg Documented by: Multivitamins/Minerals (Theragran-M) 1 each PO DAILY [facility] Last Admin: 12/25/19 09:15 Dose: 1 each Documented by: Oxycodone HCl (Roxicodone -) 5 mg PO Q6H PRN PRN Reason: PAIN SCALE 6-10 Last Admin: 12/23/19 14:51 Dose: 5 mg Documented by: Pantoprazole Sodium (Protonix -) 40 mg PO DAILY [facility] Last Admin: 12/25/19 09:16 Dose: 40 mg Documented by: Sodium Chloride ([place] Nasal [place] -) 2 spray NS BID PRN PRN Reason: NASAL CONGESTION Temazepam (Restoril -) 30 mg PO [facility] Last Admin: 12/24/19 21:24 Dose: 30 mg Documented by: - Objective Vital Signs: Vital Signs Temperature 99.0 F 07/30/20 10:00 Pulse Rate 71 12/25/19 10:00 Respiratory Rate 18 12/25/19 10:00 Blood Pressure 119/62 12/25/19 10:00 O2 Sat by Pulse Oximetry (%) 95 12/25/19 10:00 Labs: CBC, BMP 12/25/19 07:35 12/25/19 07:35 Assessment/Plan Legionella pneumonia CAD/ hx multiple coronary stents DM HTN HLD psoriatic arthritis COVID + 09/2019; negative on later test. Plan; ABX as per ID Apixaban discontinued. ASHD stable; continue ASA On hydralazine and lisinopril for HTN. on statin and fibrate for HDL
[2019-12-25] MEDS: ATORVASTATIN CA 40 MG TABLET (FP) PO SCH (22:00)
[2019-12-25] MEDS: LORazepam 1 MG TABLET PO SCH (22:01)
[2019-12-25] MEDS: TEMAZEPAM 15 MG CAPSULE PO SCH (22:02)
[2019-12-26] MEDS: METHYLPHENIDATE HCL 5 MG TABLET PO SCH ×3 (06:26→17:01)
[2019-12-26] MEDS: BACLOFEN 10 MG TABLET (FP) PO SCH ×3 (06:27→21:55)
[2019-12-26] MEDS: hydrALAZINE HCL 50 MG TABLET (FP) PO SCH ×4 (06:30→21:55)
[2019-12-26] MEDS: metFORMIN HCL 500 MG TABLET (FP) PO SCH ×3 (06:31→17:01)
[2019-12-26 08:23] LABS: BASO % 0.9 % (0-2.0); EOS % 2.6 % (0-4.5); HEMATOCRIT 33.8 % (35.4-49); HEMOGLOBIN 11.2 GM/dL (11.7-16.9); MCH 30.4 pg (25.7-33.7); MEAN CELL VOLUME 92.2 fl (80-96); MEAN PLT VOLUME 8.1 fl (7.5-11.1); MONO % 12.8 % (3.8-10.2); NEUT % 71.7 % (42.8-82.8); PLATELET COUNT 201 K/MM3 (134-434); RBC 3.67 M/mm3 (4.00-5.60); RDW 17.2 % (11.9-15.9); WHITE BLOOD COUNT 5.7 K/mm3 (4.0-10.0)
--- NOTE | 2019-12-26 08:24 | PN ---
Progress Note, Physician Chief Complaint: Patient seen and examined at the bedside, no acute events from last night, slept well, no diarrhea, no labored breathing. History of Present Illness: This 69 yr old w/m with PMH of hx of Covid 19 infection, CAD with multiple stents, HTN, HLD, NIDDM, psoriatic arthritis admitted via ER with an acute shortness of breath, and an acute left upper lobe Legionella Pneumonia, and an acute generalized muscle weakness. - Current Medication List Current Medications: Active Medications Acetaminophen (Tylenol -) 650 mg PO Q6H PRN PRN Reason: PAIN LEVEL 6-10 Last Admin: 12/24/19 06:30 Dose: 650 mg Documented by: Aspirin (Ecotrin -) 81 mg PO DAILY [facility] Last Admin: 12/25/19 09:16 Dose: 81 mg Documented by: Atorvastatin Calcium (Lipitor -) 40 mg PO HS [facility] Last Admin: 12/25/19 22:00 Dose: 40 mg Documented by: Baclofen (Lioresal -) 5 mg PO TID [facility] Last Admin: 12/26/19 06:27 Dose: 5 mg Documented by: Cholecalciferol (Vitamin D3 -) 5,000 unit PO DAILY [facility] Last Admin: 12/25/19 09:15 Dose: 5,000 unit Documented by: Enoxaparin Sodium (Lovenox -) 40 mg SQ DAILY [facility] Last Admin: 12/25/19 09:14 Dose: 40 mg Documented by: Fenofibric Acid (Trilipix -) 135 mg PO DAILY [facility] Last Admin: 12/25/19 11:05 Dose: 135 mg Documented by: Folic Acid (Folic Acid -) 1 mg PO DAILY [facility] Last Admin: 12/25/19 09:16 Dose: 1 mg Documented by: Gabapentin (Neurontin -) 100 mg PO DAILY [facility] Last Admin: 12/25/19 09:16 Dose: 100 mg Documented by: Hydralazine HCl (Apresoline -) 50 mg PO TID [facility] Last Admin: 12/26/19 06:45 Dose: 50 mg Documented by: Dextrose/Sodium Chloride (Dextrose 5%-Normal Saline+20 Meq Kcl -) 20 meq in 1,000 mls @ 50 mls/hr IV ASDIR [facility] Last Admin: 12/25/19 09:14 Dose: 50 mls/hr Documented by: Levofloxacin (Levaquin 750 Mg Premixed Ivpb -) 750 mg in 150 mls @ 100 mls/hr IVPB DAILY [facility]; Protocol Last Admin: 12/25/19 09:14 Dose: 100 mls/hr Documented by: Lisinopril (Prinivil) 40 mg PO DAILY [facility] Last Admin: 12/25/19 09:15 Dose: 40 mg Documented by: Loperamide HCl (Imodium -) 4 mg PO Q6H PRN PRN Reason: DIARRHEA Lorazepam (Ativan -) 2 mg PO [facility] Last Admin: 12/25/19 22:01 Dose: 2 mg Documented by: Metformin HCl (Glucophage -) 500 mg PO BID@0700,1630 [facility] Last Admin: 12/26/19 06:38 Dose: 500 mg Documented by: Methylphenidate HCl (Ritalin -) 20 mg PO TID@0600,1200,1600 [facility] Last Admin: 12/26/19 06:26 Dose: 20 mg Documented by: Multivitamins/Minerals (Theragran-M) 1 each PO DAILY [facility] Last Admin: 12/25/19 09:15 Dose: 1 each Documented by: Oxycodone HCl (Roxicodone -) 5 mg PO Q6H PRN PRN Reason: PAIN SCALE 6-10 Last Admin: 12/23/19 14:51 Dose: 5 mg Documented by: Pantoprazole Sodium (Protonix -) 40 mg PO DAILY [facility] Last Admin: 12/25/19 09:16 Dose: 40 mg Documented by: Sodium Chloride ([place] Nasal [place] -) 2 spray NS BID PRN PRN Reason: NASAL CONGESTION Temazepam (Restoril -) 30 mg PO [facility] Last Admin: 12/25/19 22:02 Dose: 30 mg Documented by: - Objective Vital Signs: Vital Signs Temperature 97.7 F 12/26/19 06:00 Pulse Rate 67 12/26/19 06:00 Respiratory Rate 18 12/26/19 06:00 Blood Pressure 107/58 L 12/26/19 06:00 O2 Sat by Pulse Oximetry (%) 92 L 12/26/19 06:00 Constitutional: Yes: Well Nourished, No Distress, Calm Eyes: Yes: Conjunctiva Clear, EOM Intact HENT: Yes: Atraumatic, Normocephalic Neck: Yes: Supple, Trachea Midline Cardiovascular: Yes: Regular Rate and Rhythm Respiratory: Yes: Regular, CTA Bilaterally, Rales Gastrointestinal: Yes: Normal Bowel Sounds, Soft ...Rectal Exam: Yes: Deferred Genitourinary: Yes: WNL Breast(s): Yes: WNL Musculoskeletal: Yes: Muscle Weakness Extremities: Yes: WNL Edema: No Peripheral Pulses WNL: Yes Integumentary: Yes: WNL Neurological: Yes: Alert, Oriented, Weakness ...Motor Strength: LLE (muscle weakness), RLE (muscle weakness) Psychiatric: Yes: Alert, Oriented - ....Imaging Other: Report Reviewed (lab data reviewed) Problem List - Problems (1) Pneumonia Code(s): J18.9 - PNEUMONIA, UNSPECIFIED ORGANISM (2) ADHD (attention deficit hyperactivity disorder), combined type Code(s): F90.2 - ATTENTION-DEFICIT HYPERACTIVITY DISORDER, COMBINED TYPE (3) Acute respiratory failure Code(s): J96.00 - ACUTE RESPIRATORY FAILURE, UNSP W HYPOXIA OR HYPERCAPNIA (4) CAD S/P percutaneous coronary angioplasty Code(s): I25.10 - ATHSCL HEART DISEASE OF [place] CORONARY ARTERY W/O ANG PCTRS; Z98.61 - CORONARY ANGIOPLASTY STATUS (5) COVID-19 Code(s): U07.1 - COVID POSITIVE (6) COVID-19 virus infection Code(s): U07.1 - COVID POSITIVE (7) Diabetes mellitus Code(s): E11.9 - TYPE 2 DIABETES MELLITUS WITHOUT COMPLICATIONS (8) HTN (hypertension) Code(s): I10 - ESSENTIAL (PRIMARY) HYPERTENSION (9) Hyperlipidemia Code(s): E78.5 - HYPERLIPIDEMIA, UNSPECIFIED (10) Hypoxemia requiring supplemental oxygen Code(s): R09.02 - HYPOXEMIA; Z99.81 - DEPENDENCE ON SUPPLEMENTAL OXYGEN (11) Hypoxia Code(s): R09.02 - HYPOXEMIA (12) Obesity Code(s): E66.9 - OBESITY, UNSPECIFIED (13) Pneumonia involving left lung Code(s): J18.9 - PNEUMONIA, UNSPECIFIED ORGANISM Qualifiers: Pneumonia type: due to unspecified organism Lung location: unspecified part of lung Qualified Code(s): J18.9 - Pneumonia, unspecified organism (14) Psoriatic arthritis Code(s): L40.50 - ARTHROPATHIC PSORIASIS, UNSPECIFIED (15) SOB (shortness of breath) Code(s): R06.02 - SHORTNESS OF BREATH (16) Sedentary lifestyle Code(s): Z91.89 - OTH PERSONAL RISK FACTORS, NOT ELSEWHERE CLASSIFIED (17) Legionella pneumonia Code(s): A48.1 - LEGIONNAIRES' DISEASE (18) Diarrhea Code(s): R19.7 - DIARRHEA, UNSPECIFIED (19) Insomnia Code(s): G47.00 - INSOMNIA, UNSPECIFIED (20) Generalized muscle weakness Code(s): M62.81 - MUSCLE WEAKNESS (GENERALIZED) Assessment/Plan Assessment/plan: acute shortness of breath, acute left upper lobe Legionella Pneumonia, acute generalized muscle weakness, CAD with multiple stents, HTN, HLD, NIDDM, psoriatic arthritis; DVT/GI prophylaxis, IV Levofloxacin as per ID for Legionella Pneumonia, oxygen 2L/min via nasal cannula, IV fluids for hydration and hyponatremia, baclofen and gabapentin for singultus, atorvastatin and fenofibric acid for HLD, lisinopril and hydralazine for HTN, physical therapy, temazepam and lorazepam for insomnia, metformin for NIDDM.
[2019-12-26 08:40] LABS: ALBUMIN 2.2 g/dl (3.4-5.0); BILIRUBIN,TOTAL 0.5 mg/dL (0.2-1); BLOOD UREA NITROGEN 17.1 mg/dL (7-18); CALCIUM 7.6 mg/dL (8.5-10.1); CREATININE 1.2 mg/dL (0.55-1.3); MAGNESIUM 1.9 mg/dL (1.8-2.4); PHOSPHOROUS 2.9 mg/dL (2.5-4.9); POTASSIUM 5.9 mmol/L (3.5-5.1); TOT PROT 5.1 g/dl (6.4-8.2)
--- NOTE | 2019-12-26 08:47 | PN ---
Progress Note, Physician History of Present Illness: 69-year-old male history of prediabetes on metformin Psoriatic arthritis on methotrexate, CAD with multiple cardiac stents ,hypertension, hyperlipidemia who was recently COVID positive in september. did test negative since then. is here today with recurrent symptoms of shortness of breath fever myalgia decreased appetite. Patient denies any urinary symptoms, denies any abdominal pain. States he did check his pulse ox at home it was only 94% he had a fever of 101 did take Tylenol early this a.m. no nausea no vomiting just decreased appetite overall. he feels short of breath and it is worse with lying flat. no leg swelling patient is currently on Eliquis has not had any DVTs or PEs in his course no nausea no vomiting no other current complaints PMH Major events cardiac cath 04/23/17 Dr. Nayak [facility] PCI of RPDA LOUIE Cardiac Cath. 04/04/18 Dr. Nayak [facility] Patient refused CABG. PCI LOUIE PRCA Left Main 30% LAD proximal stent patent, mid 40%, distal 50% tapers to small caliber vessel D1 80% medium size vessel D2 80% medium size vessel LCx mid stent widely patent Ramus stent widely patent with 90% stenosis proximal to patent stent- ostial lesion OM1 stent widely patent Cardiac Cath: 06/27/18 at [facility] by Dr. Deluna PCI LOUIE Ramus Ongoing medical problems 3 vessel disease - refused CABG September 09, 2015 Dr. Deluna Anxiety LOUIE of pLAD November 18, 2015 Dr. Deluna Hyperlipidemia Hypertension PCI LOUIE of mRCA September 10, 2015 Dr. Deluna PCI of Ramus and OM1 September 17, 2015 Dr. Deluna Pre-diabetes treated with metformin in the past Sleep apnea Basal cell CA nose.2016 - resection 2017 - Current Medication List Current Medications: Active Medications Acetaminophen (Tylenol -) 650 mg PO Q6H PRN PRN Reason: PAIN LEVEL 6-10 Last Admin: 12/24/19 06:30 Dose: 650 mg Documented by: Aspirin (Ecotrin -) 81 mg PO DAILY [facility] Last Admin: 12/25/19 09:16 Dose: 81 mg Documented by: Atorvastatin Calcium (Lipitor -) 40 mg PO HS [facility] Last Admin: 12/25/19 22:00 Dose: 40 mg Documented by: Baclofen (Lioresal -) 5 mg PO TID [facility] Last Admin: 12/26/19 06:27 Dose: 5 mg Documented by: Cholecalciferol (Vitamin D3 -) 5,000 unit PO DAILY [facility] Last Admin: 12/25/19 09:15 Dose: 5,000 unit Documented by: Enoxaparin Sodium (Lovenox -) 40 mg SQ DAILY [facility] Last Admin: 12/25/19 09:14 Dose: 40 mg Documented by: Fenofibric Acid (Trilipix -) 135 mg PO DAILY [facility] Last Admin: 12/25/19 11:05 Dose: 135 mg Documented by: Folic Acid (Folic Acid -) 1 mg PO DAILY [facility] Last Admin: 12/25/19 09:16 Dose: 1 mg Documented by: Gabapentin (Neurontin -) 100 mg PO DAILY [facility] Last Admin: 12/25/19 09:16 Dose: 100 mg Documented by: Hydralazine HCl (Apresoline -) 50 mg PO TID [facility] Last Admin: 12/26/19 06:45 Dose: 50 mg Documented by: Dextrose/Sodium Chloride (Dextrose 5%-Normal Saline+20 Meq Kcl -) 20 meq in 1,000 mls @ 50 mls/hr IV ASDIR [facility] Last Admin: 12/25/19 09:14 Dose: 50 mls/hr Documented by: Levofloxacin (Levaquin 750 Mg Premixed Ivpb -) 750 mg in 150 mls @ 100 mls/hr IVPB DAILY [facility]; Protocol Last Admin: 12/25/19 09:14 Dose: 100 mls/hr Documented by: Lisinopril (Prinivil) 40 mg PO DAILY [facility] Last Admin: 12/25/19 09:15 Dose: 40 mg Documented by: Loperamide HCl (Imodium -) 4 mg PO Q6H PRN PRN Reason: DIARRHEA Lorazepam (Ativan -) 2 mg PO HS [facility] Last Admin: 12/25/19 22:01 Dose: 2 mg Documented by: Metformin HCl (Glucophage -) 500 mg PO BID@0700,1630 [facility] Last Admin: 12/26/19 06:38 Dose: 500 mg Documented by: Methylphenidate HCl (Ritalin -) 20 mg PO TID@0600,1200,1600 [facility] Last Admin: 12/26/19 06:26 Dose: 20 mg Documented by: Multivitamins/Minerals (Theragran-M) 1 each PO DAILY [facility] Last Admin: 12/25/19 09:15 Dose: 1 each Documented by: Oxycodone HCl (Roxicodone -) 5 mg PO Q6H PRN PRN Reason: PAIN SCALE 6-10 Last Admin: 12/23/19 14:51 Dose: 5 mg Documented by: Pantoprazole Sodium (Protonix -) 40 mg PO DAILY [facility] Last Admin: 12/25/19 09:16 Dose: 40 mg Documented by: Sodium Chloride ([place] Nasal [place] -) 2 spray NS BID PRN PRN Reason: NASAL CONGESTION Temazepam (Restoril -) 30 mg PO HS [facility] Last Admin: 12/25/19 22:02 Dose: 30 mg Documented by: - Objective Vital Signs: Vital Signs Temperature 97.7 F 12/26/19 06:00 Pulse Rate 67 12/26/19 06:00 Respiratory Rate 18 12/26/19 06:00 Blood Pressure 107/58 L 12/26/19 06:00 O2 Sat by Pulse Oximetry (%) 92 L 12/26/19 06:00 Eyes: Yes: WNL, Conjunctiva Clear, EOM Intact HENT: Yes: WNL, Atraumatic, Normocephalic Neck: Yes: WNL, Supple, Trachea Midline Cardiovascular: Yes: WNL, Regular Rate and Rhythm Respiratory: Yes: WNL, Regular, CTA Bilaterally, Rhonchi Gastrointestinal: Yes: WNL, Normal Bowel Sounds Genitourinary: Yes: WNL Musculoskeletal: Yes: WNL Extremities: Yes: WNL Edema: No Integumentary: Yes: WNL Neurological: Yes: WNL, Alert, Oriented ...Motor Strength: WNL Psychiatric: Yes: WNL Labs: CBC, BMP 12/26/19 07:37 12/26/19 07:37 Problem List - Problems (1) Pneumonia Code(s): J18.9 - PNEUMONIA, UNSPECIFIED ORGANISM (2) ADHD (attention deficit hyperactivity disorder), combined type Code(s): F90.2 - ATTENTION-DEFICIT HYPERACTIVITY DISORDER, COMBINED TYPE (3) Acute respiratory failure Code(s): J96.00 - ACUTE RESPIRATORY FAILURE, UNSP W HYPOXIA OR HYPERCAPNIA (4) CAD S/P percutaneous coronary angioplasty Code(s): I25.10 - ATHSCL HEART DISEASE OF [place] CORONARY ARTERY W/O ANG PCTRS; Z98.61 - CORONARY ANGIOPLASTY STATUS (5) COVID-19 Code(s): U07.1 - COVID POSITIVE (6) COVID-19 virus infection Code(s): U07.1 - COVID POSITIVE (7) D-dimer, elevated Code(s): R79.89 - OTHER SPECIFIED ABNORMAL FINDINGS OF BLOOD CHEMISTRY (8) Diabetes mellitus Code(s): E11.9 - TYPE 2 DIABETES MELLITUS WITHOUT COMPLICATIONS (9) HTN (hypertension) Code(s): I10 - ESSENTIAL (PRIMARY) HYPERTENSION (10) Hyperlipidemia Code(s): E78.5 - HYPERLIPIDEMIA, UNSPECIFIED (11) Hypoxemia requiring supplemental oxygen Code(s): R09.02 - HYPOXEMIA; Z99.81 - DEPENDENCE ON SUPPLEMENTAL OXYGEN (12) Hypoxia Code(s): R09.02 - HYPOXEMIA (13) Obesity Code(s): E66.9 - OBESITY, UNSPECIFIED (14) Pneumonia involving left lung Code(s): J18.9 - PNEUMONIA, UNSPECIFIED ORGANISM Qualifiers: Pneumonia type: due to unspecified organism Lung location: unspecified part of lung Qualified Code(s): J18.9 - Pneumonia, unspecified organism (15) Psoriatic arthritis Code(s): L40.50 - ARTHROPATHIC PSORIASIS, UNSPECIFIED (16) SOB (shortness of breath) Code(s): R06.02 - SHORTNESS OF BREATH (17) Sedentary lifestyle Code(s): Z91.89 - OTH PERSONAL RISK FACTORS, NOT ELSEWHERE CLASSIFIED Assessment/Plan Assessment/Plan Legionella pneumonia CAD/ hx multiple coronary stents DM HTN HLD psoriatic arthritis COVID + 09/2019; negative on later test. Plan; ABX as per ID Apixaban discontinued. ASHD stable; continue ASA On hydralazine and lisinopril for HTN. on statin and fibrate for HDL
[2019-12-26] MEDS ORDERED: PT OWN MED DRAWER 7, Y5N ONE (09:04)
[2019-12-26] MEDS: ENOXAPARIN NA (PORCINE) 40 MG/0.4 ML DISP.SYRIN SQ SCH (09:10)
[2019-12-26] MEDS: MULTIVITAMINS THER W-MINERALS COMBO TABLET (FP) PO SCH (09:10)
[2019-12-26] MEDS: GABAPENTIN 100 MG CAPSULE PO SCH (09:10)
[2019-12-26] MEDS: FOLIC ACID 1 MG TABLET (FP) PO SCH (09:11)
[2019-12-26] MEDS: PANTOPRAZOLE 40 MG TABLET PO SCH (09:11)
[2019-12-26] MEDS: CHOLECALCIFEROL (VIT D3) 1,000 UNIT (25 MCG) TABLET PO SCH (09:11)
[2019-12-26] MEDS: FENOFIBRIC ACID 135 MG CAP PO SCH (09:12)
[2019-12-26] MEDS: ASPIRIN COATED 81 MG TABLET.EC PO SCH (09:12)
[2019-12-26] MEDS: LISINOPRIL 20 MG TABLET (FP) PO SCH (09:12)
--- NOTE | 2019-12-26 16:30 | PN ---
Progress Note, Physician History of Present Illness: AMBULATORY FEELING BETTER MORE ALERT, LESS CONFUSED OCCASIONAL COUGH AFEBRILE WBC IMPROVED LFTS IMPROVED - Current Medication List Current Medications: Active Medications Acetaminophen (Tylenol -) 650 mg PO Q6H PRN PRN Reason: PAIN LEVEL 6-10 Last Admin: 12/24/19 06:30 Dose: 650 mg Documented by: Aspirin (Ecotrin -) 81 mg PO DAILY [facility] Last Admin: 12/26/19 09:12 Dose: 81 mg Documented by: Atorvastatin Calcium (Lipitor -) 40 mg PO HS [facility] Last Admin: 12/25/19 22:00 Dose: 40 mg Documented by: Baclofen (Lioresal -) 5 mg PO TID [facility] Last Admin: 12/26/19 14:26 Dose: 5 mg Documented by: Cholecalciferol (Vitamin D3 -) 5,000 unit PO DAILY [facility] Last Admin: 12/26/19 09:11 Dose: 5,000 unit Documented by: Enoxaparin Sodium (Lovenox -) 40 mg SQ DAILY [facility] Last Admin: 12/26/19 09:10 Dose: 40 mg Documented by: Fenofibric Acid (Trilipix -) 135 mg PO DAILY [facility] Last Admin: 12/26/19 09:12 Dose: 135 mg Documented by: Folic Acid (Folic Acid -) 1 mg PO DAILY [facility] Last Admin: 12/26/19 09:11 Dose: 1 mg Documented by: Gabapentin (Neurontin -) 100 mg PO DAILY [facility] Last Admin: 12/26/19 09:10 Dose: 100 mg Documented by: Hydralazine HCl (Apresoline -) 50 mg PO TID [facility] Last Admin: 12/26/19 14:25 Dose: 50 mg Documented by: Levofloxacin (Levaquin 750 Mg Premixed Ivpb -) 750 mg in 150 mls @ 100 mls/hr IVPB DAILY [facility]; Protocol Last Admin: 12/26/19 09:13 Dose: 100 mls/hr Documented by: Lisinopril (Prinivil) 40 mg PO DAILY [facility] Last Admin: 12/26/19 09:12 Dose: 40 mg Documented by: Loperamide HCl (Imodium -) 4 mg PO Q6H PRN PRN Reason: DIARRHEA Lorazepam (Ativan -) 2 mg PO [facility] Last Admin: 12/25/19 22:01 Dose: 2 mg Documented by: Metformin HCl (Glucophage -) 500 mg PO BID@0700,1630 [facility] Last Admin: 12/26/19 06:38 Dose: 500 mg Documented by: Methylphenidate HCl (Ritalin -) 20 mg PO TID@0600,1200,1600 [facility] Last Admin: 12/26/19 12:11 Dose: 20 mg Documented by: Multivitamins/Minerals (Theragran-M) 1 each PO DAILY [facility] Last Admin: 12/26/19 09:10 Dose: 1 each Documented by: Oxycodone HCl (Roxicodone -) 5 mg PO Q6H PRN PRN Reason: PAIN SCALE 6-10 Last Admin: 12/23/19 14:51 Dose: 5 mg Documented by: Pantoprazole Sodium (Protonix -) 40 mg PO DAILY [facility] Last Admin: 12/26/19 09:11 Dose: 40 mg Documented by: Sodium Chloride ([place] Nasal [place] -) 2 spray NS BID PRN PRN Reason: NASAL CONGESTION Temazepam (Restoril -) 30 mg PO HS [facility] Last Admin: 12/25/19 22:02 Dose: 30 mg Documented by: - Objective Vital Signs: Vital Signs Temperature 98.0 F 12/26/19 14:08 Pulse Rate 69 12/26/19 14:08 Respiratory Rate 18 12/26/19 14:08 Blood Pressure 130/78 12/26/19 14:08 O2 Sat by Pulse Oximetry (%) 97 12/26/19 14:08 Constitutional: Yes: Well Nourished, Obese Cardiovascular: Yes: Regular Rate and Rhythm, S1, S2 Respiratory: Yes: CTA Bilaterally Gastrointestinal: Yes: Normal Bowel Sounds, Soft. No: Tenderness Labs: CBC, BMP 12/26/19 07:37 12/26/19 07:37 Assessment/Plan LEGIONELLA PNEUMONIA PROBABLE LEGIONELLA-ASSOC[facility]ATED ENCEPHALOPATHY IMPROVED S/P COVID-19 CONTINUE LEVAQUIN 750MG QD
[2019-12-26] MEDS: NYSTATIN 500,000 UNITS/5 ML SUSPENSION PO SCH (17:23)
[2019-12-26] MEDS: TEMAZEPAM 15 MG CAPSULE PO SCH (21:54)
[2019-12-26] MEDS: LORazepam 1 MG TABLET PO SCH (21:55)
[2019-12-26] MEDS: ATORVASTATIN CA 40 MG TABLET (FP) PO SCH (21:55)
[2019-12-27] MEDS: NYSTATIN 500,000 UNITS/5 ML SUSPENSION PO SCH ×5 (01:09→23:00)
[2019-12-27] MEDS: BACLOFEN 10 MG TABLET (FP) PO SCH ×3 (06:12→21:53)
[2019-12-27] MEDS: hydrALAZINE HCL 50 MG TABLET (FP) PO SCH ×3 (06:12→21:51)
[2019-12-27] MEDS: metFORMIN HCL 500 MG TABLET (FP) PO SCH ×2 (06:12→17:36)
[2019-12-27] MEDS: METHYLPHENIDATE HCL 5 MG TABLET PO SCH ×3 (06:15→19:07)
--- NOTE | 2019-12-27 08:12 | PN ---
Progress Note, Physician Chief Complaint: Patient seen and examined at the bedside, no acute events from last night, dry cough, no labored breathing. History of Present Illness: This 69 yr old w/m with PMH of Covid 19 pneumonitis, CAD with multiple stents, HTN, HLD, NIDDM, psoriatic arthritis admitted via ER with an acute shortness of breath, acute left upper lobe Legionella Pneumonia, and an acute generalized muscle weakness. - Current Medication List Current Medications: Active Medications Acetaminophen (Tylenol -) 650 mg PO Q6H PRN PRN Reason: PAIN LEVEL 6-10 Last Admin: 12/24/19 06:30 Dose: 650 mg Documented by: Aspirin (Ecotrin -) 81 mg PO DAILY [facility] Last Admin: 12/26/19 09:12 Dose: 81 mg Documented by: Atorvastatin Calcium (Lipitor -) 40 mg PO HS [facility] Last Admin: 12/26/19 21:55 Dose: 40 mg Documented by: Baclofen (Lioresal -) 5 mg PO TID [facility] Last Admin: 12/27/19 06:12 Dose: 5 mg Documented by: Cholecalciferol (Vitamin D3 -) 5,000 unit PO DAILY [facility] Last Admin: 12/26/19 09:11 Dose: 5,000 unit Documented by: Enoxaparin Sodium (Lovenox -) 40 mg SQ DAILY [facility] Last Admin: 12/26/19 09:10 Dose: 40 mg Documented by: Fenofibric Acid (Trilipix -) 135 mg PO DAILY [facility] Last Admin: 12/26/19 09:12 Dose: 135 mg Documented by: Folic Acid (Folic Acid -) 1 mg PO DAILY [facility] Last Admin: 12/26/19 09:11 Dose: 1 mg Documented by: Gabapentin (Neurontin -) 100 mg PO DAILY [facility] Last Admin: 12/26/19 09:10 Dose: 100 mg Documented by: Hydralazine HCl (Apresoline -) 50 mg PO TID [facility] Last Admin: 12/27/19 06:12 Dose: 50 mg Documented by: Levofloxacin (Levaquin 750 Mg Premixed Ivpb -) 750 mg in 150 mls @ 100 mls/hr IVPB DAILY [facility]; Protocol Last Admin: 12/26/19 09:13 Dose: 100 mls/hr Documented by: Lisinopril (Prinivil) 40 mg PO DAILY [facility] Last Admin: 12/26/19 09:12 Dose: 40 mg Documented by: Loperamide HCl (Imodium -) 4 mg PO Q6H PRN PRN Reason: DIARRHEA Lorazepam (Ativan -) 2 mg PO [facility] Last Admin: 12/26/19 21:55 Dose: 2 mg Documented by: Metformin HCl (Glucophage -) 500 mg PO BID@0700,1630 [facility] Last Admin: 12/27/19 06:12 Dose: 500 mg Documented by: Methylphenidate HCl (Ritalin -) 20 mg PO TID@0600,1200,1600 [facility] Last Admin: 12/27/19 06:15 Dose: 20 mg Documented by: Multivitamins/Minerals (Theragran-M) 1 each PO DAILY [facility] Last Admin: 12/26/19 09:10 Dose: 1 each Documented by: Nystatin (Nystatin Oral Suspension -) 500,000 units PO Q6HPO [facility] Last Admin: 12/27/19 06:12 Dose: 500,000 units Documented by: Oxycodone HCl (Roxicodone -) 5 mg PO Q6H PRN PRN Reason: PAIN SCALE 6-10 Last Admin: 12/23/19 14:51 Dose: 5 mg Documented by: Pantoprazole Sodium (Protonix -) 40 mg PO DAILY [facility] Last Admin: 12/26/19 09:11 Dose: 40 mg Documented by: Sodium Chloride ([place] Nasal [place] -) 2 spray NS BID PRN PRN Reason: NASAL CONGESTION Temazepam (Restoril -) 30 mg PO [facility] Last Admin: 12/26/19 21:54 Dose: 30 mg Documented by: - Objective Vital Signs: Vital Signs Temperature 98 F 12/27/19 06:07 Pulse Rate 71 12/27/19 06:07 Respiratory Rate 18 12/27/19 06:07 Blood Pressure 142/81 12/27/19 06:07 O2 Sat by Pulse Oximetry (%) 95 12/27/19 06:07 Constitutional: Yes: Well Nourished, No Distress, Calm Eyes: Yes: Conjunctiva Clear, EOM Intact HENT: Yes: Atraumatic, Normocephalic Neck: Yes: Supple, Trachea Midline Cardiovascular: Yes: Regular Rate and Rhythm Respiratory: Yes: Regular, CTA Bilaterally Gastrointestinal: Yes: Normal Bowel Sounds, Soft ...Rectal Exam: Yes: Deferred Genitourinary: Yes: WNL Breast(s): Yes: WNL Musculoskeletal: Yes: Muscle Weakness Edema: No Peripheral Pulses WNL: Yes Integumentary: Yes: WNL Neurological: Yes: Weakness ...Motor Strength: LLE (muscle weakness), RLE (muscle weakness) Psychiatric: Yes: WNL Labs: CBC, BMP 12/26/19 07:37 12/26/19 07:37 - ....Imaging Other: Report Reviewed (lab data reviewed) Problem List - Problems (1) Pneumonia Code(s): J18.9 - PNEUMONIA, UNSPECIFIED ORGANISM (2) ADHD (attention deficit hyperactivity disorder), combined type Code(s): F90.2 - ATTENTION-DEFICIT HYPERACTIVITY DISORDER, COMBINED TYPE (3) Acute respiratory failure Code(s): J96.00 - ACUTE RESPIRATORY FAILURE, UNSP W HYPOXIA OR HYPERCAPNIA (4) CAD S/P percutaneous coronary angioplasty Code(s): I25.10 - ATHSCL HEART DISEASE OF [place] CORONARY ARTERY W/O ANG PCTRS; Z98.61 - CORONARY ANGIOPLASTY STATUS (5) COVID-19 Code(s): U07.1 - COVID POSITIVE (6) COVID-19 virus infection Code(s): U07.1 - COVID POSITIVE (7) Diabetes mellitus Code(s): E11.9 - TYPE 2 DIABETES MELLITUS WITHOUT COMPLICATIONS (8) HTN (hypertension) Code(s): I10 - ESSENTIAL (PRIMARY) HYPERTENSION (9) Hyperlipidemia Code(s): E78.5 - HYPERLIPIDEMIA, UNSPECIFIED (10) Hypoxemia requiring supplemental oxygen Code(s): R09.02 - HYPOXEMIA; Z99.81 - DEPENDENCE ON SUPPLEMENTAL OXYGEN (11) Hypoxia Code(s): R09.02 - HYPOXEMIA (12) Obesity Code(s): E66.9 - OBESITY, UNSPECIFIED (13) Pneumonia involving left lung Code(s): J18.9 - PNEUMONIA, UNSPECIFIED ORGANISM Qualifiers: Pneumonia type: due to unspecified organism Lung location: unspecified part of lung Qualified Code(s): J18.9 - Pneumonia, unspecified organism (14) Psoriatic arthritis Code(s): L40.50 - ARTHROPATHIC PSORIASIS, UNSPECIFIED (15) SOB (shortness of breath) Code(s): R06.02 - SHORTNESS OF BREATH (16) Sedentary lifestyle Code(s): Z91.89 - [facility] PERSONAL RISK FACTORS, NOT ELSEWHERE CLASSIFIED (17) Legionella pneumonia Code(s): A48.1 - LEGIONNAIRES' DISEASE (18) Diarrhea Code(s): R19.7 - DIARRHEA, UNSPECIFIED (19) Insomnia Code(s): G47.00 - INSOMNIA, UNSPECIFIED (20) Generalized muscle weakness Code(s): M62.81 - MUSCLE WEAKNESS (GENERALIZED) Assessment/Plan Assessment/plan: acute shortness of breath, acute left upper lobe Legionella Pneumonia, acute generalized muscle weakness, CAD with multiple stents, HTN, HLD, NIDDM, psoriatic arthritis, hyponatremia, elevated LFTs trending down; IV fluids for hydration and hyponatremia, IV Levofloxacin for Legionella Pneumonia, DVT/GI prophylaxis, nystatin oral susp for oral thrush, atorvastatin and fenofibric acid for HLD, baclofen and gabapentin for singultus, lisinopril and apresoline for HTN, lorazepam and temazepam for insomnia, out of bed in chair as tolerated, physical therapy, may ambulate outside of room.
[2019-12-27 09:30] LABS: BASO % 0.7 % (0-2.0); EOS % 2.4 % (0-4.5); HEMATOCRIT 40.1 % (35.4-49); HEMOGLOBIN 13.3 GM/dL (11.7-16.9); LYMPH % 11.5 % (8-40); MCH 30.1 pg (25.7-33.7); MEAN CELL VOLUME 91.2 fl (80-96); MONO % 10.3 % (3.8-10.2); NEUT % 75.1 % (42.8-82.8); PLATELET COUNT 327 K/MM3 (134-434); WHITE BLOOD COUNT 8.7 K/mm3 (4.0-10.0)
[2019-12-27] MEDS ORDERED: PT OWN MED DRAWER 7, Y5N ONE (09:32)
[2019-12-27] MEDS: ENOXAPARIN NA (PORCINE) 40 MG/0.4 ML DISP.SYRIN SQ SCH (09:36)
[2019-12-27] MEDS: CHOLECALCIFEROL (VIT D3) 1,000 UNIT (25 MCG) TABLET PO SCH (09:38)
[2019-12-27] MEDS: FOLIC ACID 1 MG TABLET (FP) PO SCH (09:40)
[2019-12-27] MEDS: GABAPENTIN 100 MG CAPSULE PO SCH (09:40)
[2019-12-27] MEDS: LISINOPRIL 20 MG TABLET (FP) PO SCH (09:40)
[2019-12-27] MEDS: PANTOPRAZOLE 40 MG TABLET PO SCH (09:41)
[2019-12-27] MEDS: ASPIRIN COATED 81 MG TABLET.EC PO SCH (09:41)
[2019-12-27] MEDS: MULTIVITAMINS THER W-MINERALS COMBO TABLET (FP) PO SCH (09:41)
[2019-12-27] MEDS: FENOFIBRIC ACID 135 MG CAP PO SCH (09:42)
[2019-12-27] MEDS: LOPERAMIDE HCL 2 MG CAPSULE PO PRN ×2 (09:54→18:19)
[2019-12-27 10:15] LABS: POTASSIUM 4.4 mmol/L (3.5-5.1)
[2019-12-27 10:25] LABS: ALBUMIN 2.9 g/dl (3.4-5.0); BLOOD UREA NITROGEN 16.9 mg/dL (7-18); CALCIUM 9.5 mg/dL (8.5-10.1); CREATININE 1.2 mg/dL (0.55-1.3); TOT PROT 6.4 g/dl (6.4-8.2)
[2019-12-27 10:28] LABS: BILIRUBIN,TOTAL 0.6 mg/dL (0.2-1)
[2019-12-27] MEDS: oxyCODONE HCL 5 MG TABLET PO PRN (12:03)
--- NOTE | 2019-12-27 15:55 | PN ---
Progress Note, Physician History of Present Illness: 69-year-old male history of prediabetes on metformin Psoriatic arthritis on methotrexate, CAD with multiple cardiac stents ,hypertension, hyperlipidemia who was recently COVID positive in september. did test negative since then. is here today with recurrent symptoms of shortness of breath fever myalgia decreased appetite. Patient denies any urinary symptoms, denies any abdominal pain. States he did check his pulse ox at home it was only 94% he had a fever of 101 did take Tylenol early this a.m. no nausea no vomiting just decreased appetite overall. he feels short of breath and it is worse with lying flat. no leg swelling patient is currently on Eliquis has not had any DVTs or PEs in his course no nausea no vomiting no other current complaints PMH Major events cardiac cath 04/23/17 Dr. Nayak [facility] [[email or web address] PCI of RPDA LOUIE Cardiac Cath. 04/04/18 Dr. Nayak [facility] [[email or web address] Patient refused CABG. PCI LOUIE PRCA Left Main 30% LAD proximal stent patent, mid 40%, distal 50% tapers to small caliber vessel D1 80% medium size vessel D2 80% medium size vessel LCx mid stent widely patent Ramus stent widely patent with 90% stenosis proximal to patent stent- ostial lesion OM1 stent widely patent Cardiac Cath: 06/27/18 at [facility] by Dr. Deluna PCI LOUIE Ramus Ongoing medical problems 3 vessel disease - refused CABG September 09, 2015 Dr. Deluna Anxiety LOUIE of pLAD November 18, 2015 Dr. Deluna Hyperlipidemia Hypertension PCI LOUIE of mRCA September 10, 2015 Dr. Deluna PCI of Ramus and OM1 September 17, 2015 Dr. Deluna Pre-diabetes treated with metformin in the past Sleep apnea Basal cell CA nose.2016 - resection 2017 - Current Medication List Current Medications: Active Medications Acetaminophen (Tylenol -) 650 mg PO Q6H PRN PRN Reason: PAIN LEVEL 6-10 Last Admin: 12/24/19 06:30 Dose: 650 mg Documented by: Aspirin (Ecotrin -) 81 mg PO DAILY [facility] Last Admin: 12/27/19 09:41 Dose: 81 mg Documented by: Atorvastatin Calcium (Lipitor -) 40 mg PO HS [facility] Last Admin: 12/26/19 21:55 Dose: 40 mg Documented by: Baclofen (Lioresal -) 5 mg PO TID [facility] Last Admin: 12/27/19 13:38 Dose: 5 mg Documented by: Cholecalciferol (Vitamin D3 -) 5,000 unit PO DAILY [facility] Last Admin: 12/27/19 09:38 Dose: 5,000 unit Documented by: Enoxaparin Sodium (Lovenox -) 40 mg SQ DAILY [facility] Last Admin: 12/27/19 09:36 Dose: 40 mg Documented by: Fenofibric Acid (Trilipix -) 135 mg PO DAILY [facility] Last Admin: 12/27/19 09:42 Dose: 135 mg Documented by: Folic Acid (Folic Acid -) 1 mg PO DAILY [facility] Last Admin: 12/27/19 09:40 Dose: 1 mg Documented by: Gabapentin (Neurontin -) 100 mg PO DAILY [facility] Last Admin: 12/27/19 09:40 Dose: 100 mg Documented by: Hydralazine HCl (Apresoline -) 50 mg PO TID [facility] Last Admin: 12/27/19 13:38 Dose: 50 mg Documented by: Levofloxacin (Levaquin 750 Mg Premixed Ivpb -) 750 mg in 150 mls @ 100 mls/hr IVPB DAILY [facility]; Protocol Last Admin: 12/27/19 09:35 Dose: 100 mls/hr Documented by: Lisinopril (Prinivil) 40 mg PO DAILY [facility] Last Admin: 12/27/19 09:40 Dose: 40 mg Documented by: Loperamide HCl (Imodium -) 4 mg PO Q6H PRN PRN Reason: DIARRHEA Last Admin: 12/27/19 09:54 Dose: 4 mg Documented by: Lorazepam (Ativan -) 2 mg PO HS [facility] Last Admin: 12/26/19 21:55 Dose: 2 mg Documented by: Metformin HCl (Glucophage -) 500 mg PO BID@0700,1630 [facility] Last Admin: 12/27/19 06:12 Dose: 500 mg Documented by: Methylphenidate HCl (Ritalin -) 20 mg PO TID@0600,1200,1600 [facility] Last Admin: 12/27/19 12:03 Dose: 20 mg Documented by: Multivitamins/Minerals (Theragran-M) 1 each PO DAILY [facility] Last Admin: 12/27/19 09:41 Dose: 1 each Documented by: Nystatin (Nystatin Oral Suspension -) 500,000 units PO Q6HPO [facility] Last Admin: 12/27/19 13:37 Dose: 500,000 units Documented by: Oxycodone HCl (Roxicodone -) 5 mg PO Q6H PRN PRN Reason: PAIN SCALE 6-10 Last Admin: 12/27/19 12:03 Dose: 5 mg Documented by: Pantoprazole Sodium (Protonix -) 40 mg PO DAILY [facility] Last Admin: 12/27/19 09:41 Dose: 40 mg Documented by: Sodium Chloride ([place] Nasal [place] -) 2 spray NS BID PRN PRN Reason: NASAL CONGESTION Temazepam (Restoril -) 30 mg PO HS [facility] Last Admin: 12/26/19 21:54 Dose: 30 mg Documented by: - Objective Vital Signs: Vital Signs Temperature 98 F 12/27/19 06:07 Pulse Rate 71 12/27/19 06:07 Respiratory Rate 18 12/27/19 06:07 Blood Pressure 142/81 12/27/19 06:07 O2 Sat by Pulse Oximetry (%) 95 12/27/19 06:07 Eyes: Yes: WNL, Conjunctiva Clear, EOM Intact HENT: Yes: WNL, Atraumatic, Normocephalic Neck: Yes: WNL, Supple, Trachea Midline Cardiovascular: Yes: WNL, Regular Rate and Rhythm Respiratory: Yes: WNL, Regular, CTA Bilaterally Gastrointestinal: Yes: WNL, Normal Bowel Sounds Genitourinary: Yes: WNL Musculoskeletal: Yes: WNL Extremities: Yes: WNL Edema: No Integumentary: Yes: WNL Neurological: Yes: WNL, Alert, Oriented ...Motor Strength: WNL Psychiatric: Yes: WNL Labs: CBC, BMP 12/27/19 08:25 12/27/19 08:25 Problem List - Problems (1) Pneumonia Code(s): J18.9 - PNEUMONIA, UNSPECIFIED ORGANISM (2) ADHD (attention deficit hyperactivity disorder), combined type Code(s): F90.2 - ATTENTION-DEFICIT HYPERACTIVITY DISORDER, COMBINED TYPE (3) Acute respiratory failure Code(s): J96.00 - ACUTE RESPIRATORY FAILURE, UNSP W HYPOXIA OR HYPERCAPNIA (4) CAD S/P percutaneous coronary angioplasty Code(s): I25.10 - ATHSCL HEART DISEASE OF [place] CORONARY ARTERY W/O ANG PCTRS; Z98.61 - CORONARY ANGIOPLASTY STATUS (5) COVID-19 Code(s): U07.1 - COVID POSITIVE (6) COVID-19 virus infection Code(s): U07.1 - COVID POSITIVE (7) D-dimer, elevated Code(s): R79.89 - OTHER SPECIFIED ABNORMAL FINDINGS OF BLOOD CHEMISTRY (8) Diabetes mellitus Code(s): E11.9 - TYPE 2 DIABETES MELLITUS WITHOUT COMPLICATIONS (9) HTN (hypertension) Code(s): I10 - ESSENTIAL (PRIMARY) HYPERTENSION (10) Hyperlipidemia Code(s): E78.5 - HYPERLIPIDEMIA, UNSPECIFIED (11) Hypoxemia requiring supplemental oxygen Code(s): R09.02 - HYPOXEMIA; Z99.81 - DEPENDENCE ON SUPPLEMENTAL OXYGEN (12) Hypoxia Code(s): R09.02 - HYPOXEMIA (13) Obesity Code(s): E66.9 - OBESITY, UNSPECIFIED (14) Pneumonia involving left lung Code(s): J18.9 - PNEUMONIA, UNSPECIFIED ORGANISM Qualifiers: Pneumonia type: due to unspecified organism Lung location: unspecified part of lung Qualified Code(s): J18.9 - Pneumonia, unspecified organism (15) Psoriatic arthritis Code(s): L40.50 - ARTHROPATHIC PSORIASIS, UNSPECIFIED (16) SOB (shortness of breath) Code(s): R06.02 - SHORTNESS OF BREATH (17) Sedentary lifestyle Code(s): Z91.89 - OTH PERSONAL RISK FACTORS, NOT ELSEWHERE CLASSIFIED Assessment/Plan Assessment/Plan Legionella pneumonia CAD/ hx multiple coronary stents DM HTN HLD psoriatic arthritis COVID + 09/2019; negative on later test. Plan; ABX as per ID Apixaban discontinued. ASHD stable; continue ASA On hydralazine and lisinopril for HTN. on statin and fibrate for HDL
--- NOTE | 2019-12-27 18:46 | PN ---
Progress Note, Physician - Current Medication List Current Medications: Active Medications Acetaminophen (Tylenol -) 650 mg PO Q6H PRN PRN Reason: PAIN LEVEL 6-10 Last Admin: 12/24/19 06:30 Dose: 650 mg Documented by: Aspirin (Ecotrin -) 81 mg PO DAILY [facility] Last Admin: 12/27/19 09:41 Dose: 81 mg Documented by: Atorvastatin Calcium (Lipitor -) 40 mg PO HS [facility] Last Admin: 12/26/19 21:55 Dose: 40 mg Documented by: Baclofen (Lioresal -) 5 mg PO TID [facility] Last Admin: 12/27/19 13:38 Dose: 5 mg Documented by: Cholecalciferol (Vitamin D3 -) 5,000 unit PO DAILY [facility] Last Admin: 12/27/19 09:38 Dose: 5,000 unit Documented by: Enoxaparin Sodium (Lovenox -) 40 mg SQ DAILY [facility] Last Admin: 12/27/19 09:36 Dose: 40 mg Documented by: Fenofibric Acid (Trilipix -) 135 mg PO DAILY [facility] Last Admin: 12/27/19 09:42 Dose: 135 mg Documented by: Folic Acid (Folic Acid -) 1 mg PO DAILY [facility] Last Admin: 12/27/19 09:40 Dose: 1 mg Documented by: Gabapentin (Neurontin -) 100 mg PO DAILY [facility] Last Admin: 12/27/19 09:40 Dose: 100 mg Documented by: Hydralazine HCl (Apresoline -) 50 mg PO TID [facility] Last Admin: 12/27/19 13:38 Dose: 50 mg Documented by: Levofloxacin (Levaquin 750 Mg Premixed Ivpb -) 750 mg in 150 mls @ 100 mls/hr IVPB DAILY [facility]; Protocol Last Admin: 12/27/19 09:35 Dose: 100 mls/hr Documented by: Lisinopril (Prinivil) 40 mg PO DAILY [facility] Last Admin: 12/27/19 09:40 Dose: 40 mg Documented by: Loperamide HCl (Imodium -) 4 mg PO Q6H PRN PRN Reason: DIARRHEA Last Admin: 12/27/19 18:19 Dose: 4 mg Documented by: Lorazepam (Ativan -) 2 mg PO HS [facility] Last Admin: 12/26/19 21:55 Dose: 2 mg Documented by: Metformin HCl (Glucophage -) 500 mg PO BID@0700,1630 [facility] Last Admin: 12/27/19 17:36 Dose: 500 mg Documented by: Methylphenidate HCl (Ritalin -) 20 mg PO TID@0600,1200,1600 [facility] Last Admin: 12/27/19 12:03 Dose: 20 mg Documented by: Multivitamins/Minerals (Theragran-M) 1 each PO DAILY [facility] Last Admin: 12/27/19 09:41 Dose: 1 each Documented by: Nystatin (Nystatin Oral Suspension -) 500,000 units PO Q6HPO [facility] Last Admin: 12/27/19 17:36 Dose: 500,000 units Documented by: Oxycodone HCl (Roxicodone -) 5 mg PO Q6H PRN PRN Reason: PAIN SCALE 6-10 Last Admin: 12/27/19 12:03 Dose: 5 mg Documented by: Pantoprazole Sodium (Protonix -) 40 mg PO DAILY [facility] Last Admin: 12/27/19 09:41 Dose: 40 mg Documented by: Sodium Chloride ([place] Nasal [place] -) 2 spray NS BID PRN PRN Reason: NASAL CONGESTION Temazepam (Restoril -) 30 mg PO HS [facility] Last Admin: 12/26/19 21:54 Dose: 30 mg Documented by: - Objective Vital Signs: Vital Signs Temperature 98 F 12/27/19 06:07 Pulse Rate 71 12/27/19 06:07 Respiratory Rate 18 12/27/19 06:07 Blood Pressure 142/81 12/27/19 06:07 O2 Sat by Pulse Oximetry (%) 95 12/27/19 06:07 Labs: CBC, BMP 12/27/19 08:25 12/27/19 08:25
--- NOTE | 2019-12-27 19:19 | PN ---
Progress Note, Physician History of Present Illness: AMBULATORY FEELING BETTER MORE ALERT, LESS CONFUSED OCCASIONAL COUGH AFEBRILE WBC IMPROVED LFTS IMPROVED - Current Medication List Current Medications: Active Medications Acetaminophen (Tylenol -) 650 mg PO Q6H PRN PRN Reason: PAIN LEVEL 6-10 Last Admin: 12/24/19 06:30 Dose: 650 mg Documented by: Aspirin (Ecotrin -) 81 mg PO DAILY [facility] Last Admin: 12/27/19 09:41 Dose: 81 mg Documented by: Atorvastatin Calcium (Lipitor -) 40 mg PO HS [facility] Last Admin: 12/26/19 21:55 Dose: 40 mg Documented by: Baclofen (Lioresal -) 5 mg PO TID [facility] Last Admin: 12/27/19 13:38 Dose: 5 mg Documented by: Cholecalciferol (Vitamin D3 -) 5,000 unit PO DAILY [facility] Last Admin: 12/27/19 09:38 Dose: 5,000 unit Documented by: Enoxaparin Sodium (Lovenox -) 40 mg SQ DAILY [facility] Last Admin: 12/27/19 09:36 Dose: 40 mg Documented by: Fenofibric Acid (Trilipix -) 135 mg PO DAILY [facility] Last Admin: 12/27/19 09:42 Dose: 135 mg Documented by: Folic Acid (Folic Acid -) 1 mg PO DAILY [facility] Last Admin: 12/27/19 09:40 Dose: 1 mg Documented by: Gabapentin (Neurontin -) 100 mg PO DAILY [facility] Last Admin: 12/27/19 09:40 Dose: 100 mg Documented by: Hydralazine HCl (Apresoline -) 50 mg PO TID [facility] Last Admin: 12/27/19 13:38 Dose: 50 mg Documented by: Levofloxacin (Levaquin 750 Mg Premixed Ivpb -) 750 mg in 150 mls @ 100 mls/hr IVPB DAILY [facility]; Protocol Last Admin: 12/27/19 09:35 Dose: 100 mls/hr Documented by: Lisinopril (Prinivil) 40 mg PO DAILY [facility] Last Admin: 12/27/19 09:40 Dose: 40 mg Documented by: Loperamide HCl (Imodium -) 4 mg PO Q6H PRN PRN Reason: DIARRHEA Last Admin: 12/27/19 18:19 Dose: 4 mg Documented by: Lorazepam (Ativan -) 2 mg PO HS [facility] Last Admin: 12/26/19 21:55 Dose: 2 mg Documented by: Metformin HCl (Glucophage -) 500 mg PO BID@0700,1630 [facility] Last Admin: 12/27/19 17:36 Dose: 500 mg Documented by: Methylphenidate HCl (Ritalin -) 20 mg PO TID@0600,1200,1600 [facility] Last Admin: 12/27/19 19:07 Dose: 20 mg Documented by: Multivitamins/Minerals (Theragran-M) 1 each PO DAILY [facility] Last Admin: 12/27/19 09:41 Dose: 1 each Documented by: Nystatin (Nystatin Oral Suspension -) 500,000 units PO Q6HPO [facility] Last Admin: 12/27/19 17:36 Dose: 500,000 units Documented by: Oxycodone HCl (Roxicodone -) 5 mg PO Q6H PRN PRN Reason: PAIN SCALE 6-10 Last Admin: 12/27/19 12:03 Dose: 5 mg Documented by: Pantoprazole Sodium (Protonix -) 40 mg PO DAILY [facility] Last Admin: 12/27/19 09:41 Dose: 40 mg Documented by: Sodium Chloride ([place] Nasal [place] -) 2 spray NS BID PRN PRN Reason: NASAL CONGESTION Temazepam (Restoril -) 30 mg PO [facility] Last Admin: 12/26/19 21:54 Dose: 30 mg Documented by: - Objective Vital Signs: Vital Signs Temperature 98 F 12/27/19 06:07 Pulse Rate 71 12/27/19 06:07 Respiratory Rate 18 12/27/19 06:07 Blood Pressure 142/81 12/27/19 06:07 O2 Sat by Pulse Oximetry (%) 95 12/27/19 06:07 Constitutional: Yes: No Distress Eyes: Yes: Conjunctiva Clear Cardiovascular: Yes: Regular Rate and Rhythm, S1, S2 Respiratory: Yes: CTA Bilaterally Gastrointestinal: Yes: Normal Bowel Sounds Edema: No Labs: CBC, BMP 12/27/19 08:25 12/27/19 08:25 Assessment/Plan LEGIONELLA PNEUMONIA PROBABLE [facility] ENCEPHALOPATHY IMPROVED S/P COVID-19 CONTINUE LEVAQUIN 750MG QD
[2019-12-27] MEDS: ATORVASTATIN CA 40 MG TABLET (FP) PO SCH (21:51)
[2019-12-27] MEDS: LORazepam 1 MG TABLET PO SCH (21:53)
[2019-12-27] MEDS: TEMAZEPAM 15 MG CAPSULE PO SCH (21:53)
[2019-12-28 06:31] VITALS: BP 118/74; PULSE 60; TEMP 97.7
[2019-12-28] MEDS: BACLOFEN 10 MG TABLET (FP) PO SCH (06:31)
[2019-12-28] MEDS: METHYLPHENIDATE HCL 5 MG TABLET PO SCH (06:32)
[2019-12-28] MEDS: metFORMIN HCL 500 MG TABLET (FP) PO SCH (06:32)
[2019-12-28] MEDS: NYSTATIN 500,000 UNITS/5 ML SUSPENSION PO SCH (06:32)
[2019-12-28] MEDS: hydrALAZINE HCL 50 MG TABLET (FP) PO SCH (06:32)
--- NOTE | 2019-12-28 08:30 | DS ---
Physical Examination Vital Signs: Vital Signs Temperature 97.7 F 12/28/19 06:31 Pulse Rate 60 12/28/19 06:31 Respiratory Rate 18 12/27/19 21:00 Blood Pressure 118/74 12/28/19 06:31 O2 Sat by Pulse Oximetry (%) 98 12/28/19 06:31 Constitutional: Yes: Well Nourished, No Distress, Calm Eyes: Yes: Conjunctiva Clear, EOM Intact HENT: Yes: Atraumatic, Normocephalic Neck: Yes: Supple, Trachea Midline Cardiovascular: Yes: Regular Rate and Rhythm Respiratory: Yes: Regular, CTA Bilaterally Gastrointestinal: Yes: Normal Bowel Sounds, Soft ...Rectal Exam: Yes: Deferred Renal/: Yes: WNL Breast(s): Yes: WNL Musculoskeletal: Yes: WNL Extremities: Yes: WNL Edema: No Peripheral Pulses WNL: Yes Integumentary: Yes: WNL Neurological: Yes: Alert, Oriented ...Motor Strength: WNL Psychiatric: Yes: WNL Labs: CBC, BMP 12/27/19 08:25 12/27/19 08:25 Discharge Summary Problems reviewed: Yes Reason For Visit: PNEUMONIA Current Active Problems Diarrhea (Acute) Generalized muscle weakness (Acute) Insomnia (Acute) Legionella pneumonia (Acute) Pneumonia (Acute) Condition: Improved - Instructions Diet, Activity, Other Instructions: Continue levofloxacin for 3 days. Activity as tolerated. Physical therapy. Follow up with private MD in one week. Total time spent over 30 minutes. Referrals: Pedro Maravilla [Primary Care Provider] - Disposition: HOME - Home Medications Comprehensive Discharge Medication List: Ambulatory Orders Fenofibrate Nanocrystallized [Fenofibrate] 145 mg PO DAILY 10/01/18 Hydrocodone/Acetaminophen [[place] 7.5-325 Tablet] 1 each PO PRN 10/01/18 Methotrexate [Mexate -] 22.5 mg WEEKLY 10/01/18 Methylphenidate HCl [Ritalin LA] 20 mg PO QID 10/01/18 Simvastatin [Zocor -] 40 mg PO DAILY 10/01/18 Testosterone Cypionate [Depo-Testosterone] 200 mg IM MONTHLY 10/01/18 Gabapentin [Neurontin -] 100 mg PO DAILY 09/29/19 Icosapent Ethyl [Vascepa] 2 gm PO BID 09/29/19 Lorazepam [Ativan] 2 mg PO HS 09/29/19 Multivitamin/Iron/Folic Acid [[place] Adults Tablet] 1 each PO DAILY 09/29/19 Apixaban [Eliquis -] 5 mg PO BID #60 tablet 10/07/19 Aspirin Coated [Ecotrin -] 81 mg PO DAILY tablet.ec 10/07/19 Aspirin [ASA -] 81 mg PO DAILY tab.chew 10/07/19 Cholecalciferol (Vitamin D3) [Vitamin D3 -] 5,000 unit PO DAILY tab 10/07/19 Fenofibric Acid [Trilipix -] 135 mg PO DAILY cap 10/07/19 Folic Acid - 1 mg PO DAILY tablet 10/07/19 Lisinopril [Prinivil] 40 mg PO BID tablet 10/07/19 Nebivolol [Bystolic -] 20 mg PO BID tab 10/07/19 Pantoprazole Sodium [Protonix -] 40 mg PO BID #60 tablet.ec 10/07/19 Sodium Chloride Nasal [place] [[place] Nasal [place] -] 2 spray NS BID PRN 30 Days #1 spray 10/07/19 hydrALAZINE HCL [Apresoline -] 50 mg PO TID tablet 10/07/19 metFORMIN HCL [Glucophage -] 1,000 mg PO BID@0700,1630 tablet 10/07/19 oxyCODONE HCL [Roxicodone -] 5 mg PO Q6H PRN tablet 10/07/19
[2019-12-28 09:22] LABS: BASO % 0.6 % (0-2.0); EOS % 2.6 % (0-4.5); HEMATOCRIT 39.6 % (35.4-49); HEMOGLOBIN 13.1 GM/dL (11.7-16.9); LYMPH % 14.7 % (8-40); MCH 30.3 pg (25.7-33.7); MCHC 33.2 g/dl (32.0-35.9); MEAN CELL VOLUME 91.3 fl (80-96); MEAN PLT VOLUME 8.1 fl (7.5-11.1); MONO % 11.5 % (3.8-10.2); NEUT % 70.6 % (42.8-82.8); PLATELET COUNT 396 K/MM3 (134-434); RBC 4.34 M/mm3 (4.00-5.60); RDW 17.1 % (11.9-15.9); WHITE BLOOD COUNT 8.6 K/mm3 (4.0-10.0)
[2019-12-28] MEDS ORDERED: PT OWN MED DRAWER 7, Y5N ONE (09:31)
[2019-12-28] MEDS: CHOLECALCIFEROL (VIT D3) 1,000 UNIT (25 MCG) TABLET PO SCH (09:36)
[2019-12-28] MEDS: PANTOPRAZOLE 40 MG TABLET PO SCH (09:37)
[2019-12-28] MEDS: MULTIVITAMINS THER W-MINERALS COMBO TABLET (FP) PO SCH (09:38)
[2019-12-28] MEDS: LISINOPRIL 20 MG TABLET (FP) PO SCH (09:38)
[2019-12-28] MEDS: ENOXAPARIN NA (PORCINE) 40 MG/0.4 ML DISP.SYRIN SQ SCH (09:39)
[2019-12-28] MEDS: FOLIC ACID 1 MG TABLET (FP) PO SCH (09:39)
[2019-12-28] MEDS: FENOFIBRIC ACID 135 MG CAP PO SCH (09:39)
[2019-12-28] MEDS: ASPIRIN COATED 81 MG TABLET.EC PO SCH (09:41)
[2019-12-28] MEDS: GABAPENTIN 100 MG CAPSULE PO SCH (09:41)
[2019-12-28] MEDS: oxyCODONE HCL 5 MG TABLET PO PRN (09:41)
[2019-12-28 09:56] LABS: BLOOD UREA NITROGEN 15.5 mg/dL (7-18); CALCIUM 9.2 mg/dL (8.5-10.1); CREATININE 1.2 mg/dL (0.55-1.3); POTASSIUM 4.6 mmol/L (3.5-5.1)
[2019-12-28 09:58] LABS: BILIRUBIN,TOTAL 1.1 mg/dL (0.2-1); TOT PROT 6.3 g/dl (6.4-8.2)
== END 2019-12-28 12:50 | disposition home or self-care (01) | DRG 177 ==
LOC: JER 11:10 → SUPCPDRO 11:10 → JERBED 15:25 → J6S 17:25
PROVIDERS: ADMIT Internal Medicine; ATTEND Internal Medicine
DX: A48.1 Legionnaires' disease (principal); G93.41 Metabolic encephalopathy; E87.1 Hypo-osmolality and hyponatremia; R19.7 Diarrhea, unspecified; G47.00 Insomnia, unspecified; M62.81 Muscle weakness (generalized); I10 Essential (primary) hypertension; E78.5 Hyperlipidemia, unspecified; R50.9 Fever, unspecified; E11.9 Type 2 diabetes mellitus without complications; L40.50 Arthropathic psoriasis, unspecified; R63.0 Anorexia; F41.9 Anxiety disorder, unspecified; I25.10 Atherosclerotic heart disease of native coronary artery without angina pectoris; Z95.5 Presence of coronary angioplasty implant and graft; E66.9 Obesity, unspecified; F90.2 Attention-deficit hyperactivity disorder, combined type; D72.829 Elevated white blood cell count, unspecified; E83.51 Hypocalcemia
CPT/HCPCS: 36415; 70450-TC; 71045-TC-FY; 71250-TC; 80053; 81003; 82550; 82728; 82962; 83605; 83615; 83735; 83880; 84100; 84484; 85025; 85379; 87040; 87070; 87086; 87205; 87324; 87449; 87899; 93005; 93010; 93308; 97116-GP; 97161-GP; 99285-25; J0475; U0003